=== PATIENT | male | born 1960 | race African-American/Black ===

== ENCOUNTER 2017-05-07 15:01 | Inpatient (IN) ==
[2017-05-07 16:08] LABS: CKMB % 4.9 %
[2017-05-07 16:10] LABS: Troponin I Only 0.809 NG/ML (0.00-0.045)
--- NOTE | 2017-05-07 16:12 | Emergency Department Note ---
Arrival - Arrival Chief Complaint: Chest Pain Stated Complaint: chest pain ED Nursing Triage Note: Transfer from [facility] ER for futher evaluation of elevated troponin - pt also had syncopal episodes x 2 [employer] - pt is a pt of Dr Gregory - pt states that he had some vein surgery per Dr Valente Garcia on March 26 - pt also c/o SOB Mode of Arrival: Ambulatory Limitations: No Limitations Source: Patient Time Seen by Provider: 05/07/17 16:07 - History of Present Illness HPI Narrative: This 57-year-old black male presents with a history of having a syncopal episode in the shower earlier today followed by a period of nausea, vomiting, shortness of breath, left-sided chest pain, and profound weakness. He continued to be lightheaded even after awakening from his syncopal spell. He did not reach any semblance of stability until he reached [facility] where he was given antiemetics, fluid support, Plavix, and aspirin. Notable was a CT of the head and a chest x-ray done there which were were reported as unremarkable, notable, however was a troponin of 0.292. The patient has been seen by Dr. Gregory in the past and is currently medically stable. Onset (ago): hour(s) (Patient presents about 8 hours after the incident) Allergies/Adverse Reactions: Allergies Allergy/AdvReac Type Severity Reaction Status Date / Time No Known Allergies Allergy Verified 03/13/17 17:42 Home Medications: Home Medications Medication Instructions Recorded Confirmed Type Aspirin [Lo-Dose Aspirin EC] 81 mg PO 0900 03/13/17 05/07/17 History Insulin Glargine,Hum.rec.anlog 0 - 75 units SUBCUT BID 03/13/17 05/07/17 History [Lantus SoloStar] Lisinopril/Hydrochlorothiazide 1 each PO BID 03/13/17 05/07/17 History [Lisinopril-Hctz 20-12.5 mg Tab] Metformin HCl [Metformin HCl ER] 1,000 mg PO BID 03/13/17 05/07/17 History Pravastatin [Pravachol] 40 mg PO BEDTIME 03/13/17 05/07/17 History amLODIPine [Norvasc] 5 mg PO 0900 03/13/17 05/07/17 History Ciprofloxacin Tab [Cipro Tab] 500 mg PO BID 05/07/17 05/07/17 History Clopidogrel [Plavix] 75 mg PO 0900 05/07/17 05/07/17 History Gabapentin Cap/Tab [Neurontin 300 mg PO TID 05/07/17 05/07/17 History Cap/Tab] Isosorbide Mononitrate [Isosorbide 30 mg PO QAM 05/07/17 05/07/17 History Mononitrate ER] Sulfameth/Trimeth 800-160 Tab 1 tablet PO BID 05/07/17 05/07/17 History [Bactrim DS Tab] Review of System - Review of System 12 point system: reviewed and no additional remarkable complaints except as stated - Review of System Constitutional: Present: as per HPI Respiratory: Present: as per HPI Cardiovascular: Present: as per HPI Gastrointestinal: Present: as per HPI Medical,Surgical,& Family Hx - Medical History Cardio: History of: Hypertension, PVD Endocrine: History of: Diabetes Mellitus (IDDM) - Social History Smoking Status: Never smoker Frequency of Alcohol Use: None Type of Drug Use: None Exam Physical Examination: GENERAL: Well developed, well nourished black male in no acute distress. HEENT: Normocephalic. No trauma. Moist mucous membranes. EOMI. PERRLA. ENT NML NECK: Supple. No adenopathy. CARDIAC: Regular. No murmurs. Heart rate 58 CHEST: Clear to auscultation. No respiratory distress. O2 sat 97% ABDOMEN: Soft. Nontender. Active bowel sounds. EXTREMITIES: No trauma. Normal ROM. No pedal edema. SKIN: No diaphoresis. No rash. NEURO: Alert. Neuro intact no focal deficits. Vital Signs: Vital Signs Temperature 97.2 F L 05/07/17 15:24 Pulse Rate 118 H 05/07/17 15:24 Respiratory Rate 20 05/07/17 15:24 Blood Pressure 130/79 05/07/17 15:24 O2 Sat by Pulse Oximetry 97 05/07/17 15:19 Course - Reevaluation(s) Reevaluation #1: Advised patient of need for hospitalization for serial enzymes - Consultations Consultation #1: Discussed with the hospitalist service who will admit for further evaluation treatment. Results - Labs Labs: Lab per [facility] white count 10,400, hematocrit 31.7, glucose 226, BUN 33, creatinine 2.9, troponin 0.292 I have noted the bump in troponins. - Impressions EKG: Sinus tachycardia at a rate of 120. Right ventricular conduction delay with diffuse nonspecific ST changes. Questionable inferior infarct. Disposition Clinical Impression: Abnormal cardiac enzymes, Chronic renal insufficiency, Diabetes, Peripheral vascular disease, Hypertension Case discussed with: patient Disposition: Still a Patient Condition: Guarded Time of Disposition: 16:55
--- NOTE | 2017-05-07 17:47 | Hospitalist History & Physical ---
Assessment and Plan (1) Chest pain Status: Acute Assessment and plan: Serum troponin was noted to be elevated at the time of ED presentation at 0.809 a noted increase from 0.292 which was noted at [facility]. We will obtain serial cardiac enzymes. We will consult cardiology to evaluate. In addition, we will order an echocardiogram, lipid panel, hemoglobin A1c, thyroid panel, carotid Dopplers. Current Visit: Yes (2) Syncope Status: Acute Assessment and plan: We will perform a syncope workup. We will obtain carotid Dopplers, echocardiogram, lipid panel, hemoglobin A1c. The previous medical records make no mention of CT scan of the head; we will obtain for evaluation. Current Visit: Yes (3) Hypertension Status: Acute Assessment and plan: Home medications have been reconciled; we will monitor blood pressures during the clinical encounter. Current Visit: Yes (4) Dyslipidemia Status: Acute Current Visit: Yes (5) Diabetes mellitus Status: Acute Assessment and plan: We will obtain hemoglobin A1c and start Accu-Cheks with sliding scale coverage. Current Visit: Yes (6) Renal failure, unspecified Status: Acute Assessment and plan: Gross elevations in renal function noted at the time of ED presentation. BUN is noted at 33 and creatinine 2.9. The family reports a recent onset of acute kidney injury after the patient's femoral bypass surgery. Postoperatively, the patient was given multiple antibiotic agents in which the family suggest was the causative factor for the acute kidney injury. They report that the patient was followed by nephrology during the hospitalization, however the family reports that the patient has not followed up with nephrology since discharge. Upon review of the previous medical records available on the patient, a point of care creatinine was performed on March 18, 2017 which reported the patient's creatinine at 1.09. We will monitor renal function closely. Current Visit: Yes History of Present Illness Chief complaint: Syncope/chest pain History of present illness: This is a 57-year-old male that presented to the ED from [facility] as a transfer from [facility] for further evaluation of chest pain and syncope. Patient has a very extensive medical history significant for insulin-dependent diabetes mellitus, morbid obesity, remote nicotine use, peripheral vascular disease, dyslipidemia, and diabetic neuropathy. Patient has surgical history for femoral bypass(2016). The patient reported the onset of symptoms this morning while taking shower. He reports that he became dizzy and subsequently passed out. His family heard him during this episode and assist him out of the shower. After being assisted out of the shower by his family, the patient experienced an immediate episode of nausea, vomiting, shortness of breath, left-sided chest pain, and became very weak. His family became alarmed and transported him to the ED at [facility]. The patient remained profoundly weak at the time of ED presentation at [facility]. Labs were obtained; which reported a troponin noted at 0.292. The patient was subsequently transferred to [facility] for higher level of care. The patient was immediately assessed at the time of presentation at [facility]. Cardiac enzymes were redrawn ; troponin was noted at 0.809, CK-MB 5.1, total creatinine kinase 104. The family was present at bedside. They report that the patient had recently undergone femoral bypass at [facility]. In addition, they report that the patient has experience episodes similar in nature in the past. They report that during the hospitalization at [facility], the patient had intermittent episodes of left-sided chest pain. They report that the patient had received a cardiac evaluation which included a stress test and echocardiogram and that they were told that there were no significant findings. Ironically, the family reports that they were told that the patient was experiencing "panic attacks". After brief discussion with both Dr. Gonzalez and Dr. Olson, the patient will be admitted to the hospitalist services for continuation of care. Home medications have been reviewed and reconciled. CODE STATUS discussed; patient is a FULL CODE. The family verbalized concerns regarding the patient's current renal function. They report that the patient renal function had been normal until the subsequent femoral bypass. Apparently, rounds of antibiotics which further worsend his renal function. They report that he was evaluated by nephrology however the patient has not followed up with nephrology since the subsequent discharge. Home Medications Medication Instructions Recorded Confirmed Type Aspirin [Lo-Dose Aspirin EC] 81 mg PO 0900 03/13/17 05/07/17 History Insulin Glargine,Hum.rec.anlog 0 - 75 units SUBCUT BID 03/13/17 05/07/17 History [Lantus SoloStar] Lisinopril/Hydrochlorothiazide 1 each PO BID 03/13/17 05/07/17 History [Lisinopril-Hctz 20-12.5 mg Tab] Metformin HCl [Metformin HCl ER] 1,000 mg PO BID 03/13/17 05/07/17 History Pravastatin [Pravachol] 40 mg PO BEDTIME 03/13/17 05/07/17 History amLODIPine [Norvasc] 5 mg PO 0900 03/13/17 05/07/17 History Ciprofloxacin Tab [Cipro Tab] 500 mg PO BID 05/07/17 05/07/17 History Clopidogrel [Plavix] 75 mg PO 0900 05/07/17 05/07/17 History Gabapentin Cap/Tab [Neurontin 300 mg PO TID 05/07/17 05/07/17 History Cap/Tab] Isosorbide Mononitrate [Isosorbide 30 mg PO QAM 05/07/17 05/07/17 History Mononitrate ER] Sulfameth/Trimeth 800-160 Tab 1 tablet PO BID 05/07/17 05/07/17 History [Bactrim DS Tab] Allergies Allergy/AdvReac Type Severity Reaction Status Date / Time No Known Allergies Allergy Verified 03/13/17 17:42 Medical,Surgical,& Family Hx - Medical History Cardio: History of: Hypertension, PVD Endocrine: History of: Diabetes Mellitus (IDDM) - Social History Smoking Status: Never smoker Frequency of Alcohol Use: None Type of Drug Use: None 12 point system: reviewed and no additional remarkable complaints except as stated Exam - Constitutional Vitals: Period Temp Pulse Resp BP Sys/Diaz Pulse Ox Last 24 Hr 97.2 F-97.2 F 118-118 20-20 130-130/79-79 97 General appearance: morbidly obese - Head Head exam: Present: normal inspection, normocephalic, atraumatic - Eye Eye exam: Present: EOMI, conjunctival injection Pupils: Present: SAMSON, normal accommodation - ENT ENT exam: Present: normal exam, normal external ear exam, normal oropharynx - Neck Neck exam: Present: normal inspection. Absent: lymphadenopathy, meningismus, thyromegaly - Respiratory Respiratory exam: Present: clear to auscultation bilaterally. Absent: wheezes - Cardiovascular Cardiovascular exam: Present: regular rate and rhythm. Absent: carotid bruit, diastolic murmur, gallop, JVD, rubs, systolic murmur - GI/Abdominal GI/Abdominal exam: Present: normal bowel sounds, soft - Extremities Exam Extremities exam: Present: normal inspection, normal capillary refill, full ROM. Absent: edema - Back Exam Back exam: Present: normal inspection - Neurological Exam Neurological exam: Present: alert, oriented X3, CN II-XII intact - Psychiatric Psychiatric exam: Present: normal affect, normal mood - Skin Skin exam: Present: normal color, warm, dry Results - Labs Lab Results: I have reviewed the past 24 hour labs
--- NOTE | 2017-05-07 17:57 | EKG Report ---
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
[2017-05-07] MEDS ORDERED: ONDANSETRON 4 MG/2 ML VIAL IV PRN (18:30)
[2017-05-07] MEDS ORDERED: SODIUM CHLORIDE 0.9% 1,000 ML IV SCH (18:30)
--- NOTE | 2017-05-07 20:30 | Ultrasound Report ---
Bilateral carotid Doppler. Indication: Syncope. Grayscale, color-flow, and spectral analysis performed and interpreted. The right internal carotid artery peak systolic velocity is 76 cm/s, with an IC/CC ratio 1.0. The left internal carotid artery peak systolic velocity is 82 cm/s, with an IC/CC ratio of 0.8. There is antegrade flow within each vertebral artery. Impression: Using NASCET criteria, findings consistent with less than 50% stenosis bilaterally. PROCEDURE INTERPRETED AT [facility] DEPARTMENT OF RADIOLOGY Final Report Signed by: Dr. Raven Valdes
[2017-05-07 20:33] LABS: CKMB % 4.8 %
[2017-05-07 20:49] LABS: Troponin I Only 1.28 NG/ML (0.00-0.045)
[2017-05-07] MEDS: INSULIN GLARGINE 100 UNIT/ML SUBCUT SCH (21:16)
[2017-05-07] MEDS: SULFAMETHOX/TRIMETHOPRIM 800-160 MG TABLET PO SCH (21:18)
[2017-05-07] MEDS: ENOXAPARIN 30 MG/0.3 ML SYRINGE SUBCUT SCH (21:19)
[2017-05-07] MEDS: GABAPENTIN 300 MG CAPSULE PO SCH (21:19)
[2017-05-07] MEDS: PRAVASTATIN 40 MG TABLET PO SCH (21:19)
[2017-05-07] MEDS: CIPROFLOXACIN 500 MG TABLET PO SCH ×2 (21:21→22:56)
[2017-05-07] MEDS: LISINOPRIL/HCTZ 20-12.5 MG TABLET PO SCH (21:23)
[2017-05-07 22:26] LABS: Troponin I Only 1.37 NG/ML (0.00-0.045)
[2017-05-08 01:42] LABS: Basophils # 0.1 10*3/uL (0.0-0.2); Basophils % 0.5 % (0.0-0.8); Eosinophils # 0.1 10*3/uL (0.0-0.87); Eosinophils % 0.8 % (0.00-10.9); Hematocrit 27.1 VOL% (42.0-52.0); Hemoglobin 9.3 GM/DL (14.0-18.0); Immature Granulocytes % 0.5 %; Immature Granulocytes Absolute 0.05 #; Lymphocytes # 2.7 10*3/uL (1.4-4.0); Lymphocytes % 25.9 % (21.2-54.2); Mean Corpuscular HGB Conc 34.3 GM/DL (32-36); Mean Corpuscular Hemoglobin 31 PG (27-34); Mean Corpuscular Volume 90.3 FL (87-102); Mean Platelet Volume 11.3 FL (9.6-12.0); Monocytes # 1.1 10*3/uL (0.11-0.8); Monocytes % 10.2 % (1.7-12.7); Neutrophils # 6.4 10*3/uL (1.4-7.4); Neutrophils % 62.1 % (38.7-73.9); Platelet Count 125 T/CUMM (130-400); Red Cell Distribution Width 12.5 % (9.3-17.3); White Blood Count 10.3 T/CUMM (4-12)
[2017-05-08 02:20] LABS: Calcium 9.4 MG/DL (8.5-10.1); Osmolality,Calculated 295.3 MOS/KG (273-304); Potassium 4.2 MMOL/L (3.5-5.1)
[2017-05-08 02:22] LABS: Troponin I Only 1.27 NG/ML (0.00-0.045)
[2017-05-08 02:27] LABS: Risk Ratio 5.11; Thyroid Stimulating Hormone 0.3 uIU/ml (0.358-3.74); VLDL CHOLESTEROL 27.4 MG/DL
--- NOTE | 2017-05-08 07:38 | EKG Report ---
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
[2017-05-08] MEDS ORDERED: NITROGLYCERIN SL 0.4 MG TABLET SL ONE (10:13)
--- NOTE | 2017-05-08 10:39 | EKG Report ---
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
--- NOTE | 2017-05-08 11:00 | Cardiology Consult Note ---
<Vanessa Stacy E - Last Filed: 05/08/17 10:24> Assessment and Plan - Time spent with patient Time spent with patient: Greater than 30 minutes (due to assessment, plan, and documentation) (1) Chest pain Status: Acute Assessment and plan: See plan of care listed below. Current Visit: Yes (2) Syncope Status: Acute Assessment and plan: See plan of care listed below. Current Visit: Yes (3) Hypertension Status: Chronic Assessment and plan: See plan of care listed below. Current Visit: Yes (4) Diabetes mellitus Status: Acute Assessment and plan: See plan of care listed below. Current Visit: Yes (5) Dyslipidemia Status: Chronic Assessment and plan: See plan of care listed below. Current Visit: Yes (6) Peripheral vascular disease Status: Chronic Assessment and plan: See plan of care listed below. Current Visit: Yes (7) Anemia Status: Chronic Assessment and plan: See plan of care listed below. Current Visit: Yes (8) Chronic kidney disease, stage 3 (moderate) Status: Chronic Assessment and plan: See plan of care listed below. Current Visit: Yes (9) Obesity Status: Chronic Assessment and plan: See plan of care listed below. Current Visit: Yes (10) Former tobacco use Status: Chronic Assessment and plan: See plan of care listed below. Current Visit: Yes History of Present Illness - Data of Consult Patient: known to practice within the last 3 years Consult date: 05/07/17 Requesting Physician: Mendez Olson - Consult Narrative Reason for consult: Chest pain, syncope History of present illness: BLOW MOLD OPERATOR: DR. LONDON PCP: Dr. Velázquez Mr. Willard is a 57 year old male with a history of hypertension , DVTs, dyslipidemia, peripheral vascular disease, chronic kidney disease stage III. Risk factors are significant for: Hypertension, dyslipidemia, diabetes, sedentary lifestyle, obesity, former smoker. He is status post left leg arterial bypass surgery using saphenous vein on 03/26/[address] Valente Garcia. During the hospitalization he was noted to have a normal ejection fraction of 65 % with concentric left ventricular hypertrophy with normal valves but without any real pathology. He also had a cardiac perfusion study using Lexiscan during which he was hypertensive but had no evidence for ischemia with ejection fraction 63%. He does have a significant family history of coronary artery disease. His mother from an IN at age 67 and had prior MIs with stents. His younger sister had an IN for the age of 50. His younger brother has had permanent pacemaker placement and stent placement around the age of 50. Mr. Willard was transferred to our facility from [facility] for further evaluation of chest pain and a syncopal episode. At [facility] he was noted to have an elevated troponin of 0.292. Mr. Willard tells me that he has had trouble with shortness of breath, chest tightness, and dizziness since he was discharged from the hospital in early March. He tells me he has frequently had episodes of dizziness, shortness of breath, and left chest wall numbness that wraps around to his back. He tells me he has frequent dyspnea on exertion and is unable to walk more than 50 feet without becoming winded. He tells me this is progressively worsened since he was discharged from the hospital. On Friday he reports he went to the wound clinic for treatment and has been taking Cipro and Bactrim. Friday morning he noted some shortness of breath and then afternoon he was outside and became hot and dizzy. He went inside to cool off and later that evening he had a short episode of chest tightness before he went to bed. Friday morning, he noted he still had some chest tightness when he woke up but went to take a shower and became dizzy and passed out. His found him and reports that he was unconscious for approximately 5 minutes before coming to. He did have bowel and bladder incontinence. When he woke, he was neurologically intact but was diaphoretic, weak, and vomited. His tells me it was another 5-10 minutes before he could stand. EMS was called and he was subsequently brought to [facility]. Upon arrival to our facility, his troponin was noted to be 0.809 with normal CPK and CK-MB of 5.1. It has subsequently risen to 1.28, 1.37, and now 1.27. His creatinine is 2.8. He is anemic with H&H of 9.3 and 27.1. ASSESSMENT/PLAN: 1. CHEST PAIN -symptoms suspicious for angina. He has had some positive cardiac biomarkers and nondiagnostic abnormal EKG with ST-T abnormality. After discussing with Dr. London, we will consult nephrology since patient will probably need heart catheterization. We will change his IV fluids to bicarbonate infusion in anticipation of probable catheterization. We will also hold his metformin. 2. SYNCOPE -unsure of the etiology. This certainly could have been an arrhythmic event; however, he has been in normal sinus rhythm since his arrival. Carotid Doppler revealed less than 50% stenosis bilaterally. Will get orthostatic vital signs. 3. HYPERTENSION - Currently well controlled. We will continue to monitor and adjust accordingly. 4. HYPERLIPIDEMIA - Continue lipid lowering agent. Triglycerides 137, cholesterol 138, LDL 84, HDL 27. 5. DIABETES - Suspect uncontrolled. He currently is undergoing treatment at the [facility] for removal of a gangrenous left last toe. 6. PERIPHERAL VASCULAR DISEASE - S/P left leg arterial bypass surgery on . 7. OBESITY - Chronic. 8. FORMER TOBACCO USE - Quit in 2005. 9. ANEMIA - This seems to be chronic. Records from her recent visit with Dr. Velázquez reveal an H&H of 9.6 and 30.5. He is on dual antiplatelet therapy with aspirin Plavix due to his recent vascular surgery. Platelet count is 125. Will check stool for occult blood. 10. CHRONIC KIDNEY DISEASE, STAGE 3 - Will consult nephrology for their input since he will likely need heart catheterization. We will stop his current IV fluids and place him on a bicarb drip. We will hold his metformin. CC: Mendez Olson MD - Home Medications and Allergies Home Medications: Home Medications Medication Instructions Recorded Confirmed Type Aspirin [Lo-Dose Aspirin EC] 81 mg PO 0900 03/13/17 05/07/17 History Insulin Glargine,Hum.rec.anlog 0 - 75 units SUBCUT BID 03/13/17 05/07/17 History [Lantus SoloStar] Lisinopril/Hydrochlorothiazide 1 each PO BID 03/13/17 05/07/17 History [Lisinopril-Hctz 20-12.5 mg Tab] Metformin HCl [Metformin HCl ER] 1,000 mg PO BID 03/13/17 05/07/17 History Pravastatin [Pravachol] 40 mg PO BEDTIME 03/13/17 05/07/17 History amLODIPine [Norvasc] 5 mg PO 0900 03/13/17 05/07/17 History Ciprofloxacin Tab [Cipro Tab] 500 mg PO BID 05/07/17 05/07/17 History Clopidogrel [Plavix] 75 mg PO 0900 05/07/17 05/07/17 History Gabapentin Cap/Tab [Neurontin 300 mg PO TID 05/07/17 05/07/17 History Cap/Tab] Isosorbide Mononitrate [Isosorbide 30 mg PO QAM 05/07/17 05/07/17 History Mononitrate ER] Allergies/Adverse Reactions: Allergies Allergy/AdvReac Type Severity Reaction Status Date / Time No Known Allergies Allergy Verified 03/13/17 17:42 Review of systems: - Constitutional: Present: fatigue, As per HPI. Absent: anorexia, chills, daytime sleepiness, excessive sweating, fever(s), frequent falls, headache(s), increased appetite, lethargy, malaise, night sweats, stops breathing during sleep, weakness, weight gain, weight loss. - EENT Eyes: Present: As per HPI. Absent: blurry vision, diplopia, loss of vision Ears: Present: As per HPI. Absent: decreased hearing, ear discharge, ear pain Nose, mouth and throat: Present: As per HPI. Absent: dysphagia, epistaxis, headache(s), hoarseness, lip swelling, nasal congestion, neck mass, neck pain, sinus pressure, sore throat, throat swelling, tongue swelling, vertigo - Cardiovascular: Present: chest pain at rest, chest pain with activity, dyspnea , dyspnea on exertion, lightheadedness, as per HPI. Absent: edema, claudication , diaphoresis, radiating jaw, neck or arm pain, orthopnea, palpitations, PND - Respiratory: Present: dyspnea, dyspnea on exertion, as per HPI. Absent: cough, hemoptysis, wheezing, snoring, pain on inspiration - Gastrointestinal: Present: nausea, vomiting,As per HPI. Absent: abdominal pain , bloating, change in bowel habits, constipation, diarrhea, heartburn, hematemesis, hematochezia, loose stools, melena, - Genitourinary: Present: As per HPI. Absent: difficulty urinating, dysuria, flank pain, hematuria, nocturia, urinary frequency, urinary incontinence - Musculoskeletal: Present: As per HPI. Absent: arthralgias, back pain, joint swelling, limited range of motion, muscle cramps, muscle weakness, myalgias - Neurological: Present: dizziness, syncope, As per HPI. Absent: abnormal gait, abnormal speech, behavioral changes, confusion, convulsions, disequilibrium, focal weakness, frequent falls, headache(s), memory loss, numbness, paresthesias , radicular pain, tremor(s) - Psychiatric: Present: As per HPI. Absent: anxiety, confusion, depression, panic attacks - Endocrine: Present: fatigue, As per HPI. Absent: cold intolerance, heat intolerance, polydipsia, polyphagia - Hematologic/Lymphatic: Present: As per HPI. Absent: easy bleeding, easy bruising, lymphadenopathy Medical,Surgical,& Family Hx - Medical History Cardio: History of: Hypertension, PVD Neurology: History of: Cerebrovascular Accident (2004), Peripheral Neuropathy Endocrine: History of: Diabetes Mellitus (IDDM), Dyslipidemia Respiratory: History of: Obstructive Sleep Apnea (cpap) - Surgical History Cardiac Surgeries: Patient Denies: Cardiac Catheterization - Family History Family History: Reports;: Family Cancer, Family Heart Disease, Family Hypertension - Social History Smoking Status: Former smoker (quit in 2005) Frequency of Alcohol Use: None Type of Drug Use: None Marital Status: Lives With:: Spouse Functional capacity: independent ambulation Physical Examination Vital Signs Temp Pulse Resp BP Pulse Ox 97.2 F L 118 H 20 130/79 97 05/07/17 15:19 05/07/17 15:19 05/07/17 15:19 05/07/17 15:19 05/07/17 15:19 Exam: General appearance: Pleasant and cooperative. Normal weight, no acute distress. - Head Head exam: Present: normal inspection, normocephalic, atraumatic. Absent: hematoma, laceration - Eye Eye exam: Present: EOMI. Absent: conjunctival injection, nystagmus, periorbital swelling, scleral icterus, laceration to eyelids Pupils: Present: PERRL. Absent: constricted, dilated, fixed, irregular, unequal - ENT ENT exam: Present: normal exam, normal external ear exam - Neck Neck exam: Present: normal inspection. Absent: lymphadenopathy, meningismus, tenderness, thyromegaly - Respiratory Respiratory exam: Present: clear to auscultation bilaterally. Absent: accessory muscle use, chest wall tenderness - Cardiovascular Cardiovascular exam: Present: regular rate and rhythm. Absent: carotid bruit, gallop, JVD, rubs, murmur - GI/Abdominal GI/Abdominal exam: Present: normal bowel sounds, soft. Absent: distended, firm , guarding, hernia, mass, tenderness, rebound. - Extremities Exam Extremities exam: Present: normal inspection, normal capillary refill. Upper extremity pulses 2+. Lower extremity pulses diminished. Bandage to left foot from recent left last toe removal. Absent: calf tenderness, edema -Musculoskeletal Exam Musculoskeletal: Present: No Fluid Collection, No Pain, Normal Range of Motion - Back Exam Back exam: Present: normal inspection. Absent: muscle spasm, vertebral tenderness - Neurological Exam Neurological exam: Present: alert, oriented X3, grossly intact without resting or essential tremor - Psychiatric Psychiatric exam: Present: normal affect, normal mood - Skin Skin exam: Present: normal color, warm, dry, intact. Absent: cyanosis, diaphoretic, rash, urticaria Result/EKG - Labs CBC & BMP: 05/08/17 01:23 05/08/17 01:23 Lab Results: I have reviewed the past 24 hour labs Labs: Laboratory Results - last 24 hr 05/07/17 05/07/17 05/07/17 15:19 19:09 20:50 WBC RBC Hgb Hct MCV MCH MCHC RDW Plt Count MPV Neut % (Auto) Lymph % (Auto) [place] % (Auto) Eos % (Auto) Baso % (Auto) Neut # (Auto) Lymph # (Auto) [place] # (Auto) Eos # (Auto) Baso # (Auto) Immature Gran % Nucleated RBC % Immature Gran # Nucleated RBCs # Sodium Potassium Chloride Carbon Dioxide Anion Gap BUN Creatinine GFR Calculation BUN/Creatinine Ratio Glucose POC Glucose 211 H Calculated Osmolality Calcium Magnesium Total Creatine Kinase 104 115 CK-MB (CK-2) 5.1 H 5.5 H CK and CKMB Interp 4.9 4.8 Troponin I 0.809 H 1.280 H D B-Natriuretic Peptide Triglycerides Cholesterol LDL Cholesterol VLDL Cholesterol HDL Cholesterol Heart Disease Risk Ratio TSH 3rd Generation 05/07/17 05/08/17 05/08/17 21:47 01:23 01:23 WBC 10.3 RBC 3.00 L Hgb 9.3 L Hct 27.1 L MCV 90.3 MCH 31 MCHC 34.3 RDW 12.5 Plt Count 125 L MPV 11.3 Neut % (Auto) 62.1 Lymph % (Auto) 25.9 [place] % (Auto) 10.2 Eos % (Auto) 0.8 Baso % (Auto) 0.5 Neut # (Auto) 6.4 Lymph # (Auto) 2.7 [place] # (Auto) 1.1 H Eos # (Auto) 0.1 Baso # (Auto) 0.1 Immature Gran % 0.5 Nucleated RBC % 0.0 Immature Gran # 0.05 Nucleated RBCs # 0.00 Sodium 141 Potassium 4.2 Chloride 108 H Carbon Dioxide 25 Anion Gap 12.2 BUN 38 H Creatinine 2.80 H GFR Calculation 38 BUN/Creatinine Ratio 13.00 Glucose 200 H POC Glucose Calculated Osmolality 295.3 Calcium 9.4 Magnesium 2.0 Total Creatine Kinase 106 104 CK-MB (CK-2) 5.3 H CK and CKMB Interp 5.0 Troponin I 1.370 H 1.270 H B-Natriuretic Peptide Triglycerides Cholesterol LDL Cholesterol VLDL Cholesterol HDL Cholesterol Heart Disease Risk Ratio TSH 3rd Generation 05/08/17 05/08/17 05/08/17 01:23 01:23 01:23 WBC RBC Hgb Hct MCV MCH MCHC RDW Plt Count MPV Neut % (Auto) Lymph % (Auto) [place] % (Auto) Eos % (Auto) Baso % (Auto) Neut # (Auto) Lymph # (Auto) [place] # (Auto) Eos # (Auto) Baso # (Auto) Immature Gran % Nucleated RBC % Immature Gran # Nucleated RBCs # Sodium Potassium Chloride Carbon Dioxide Anion Gap BUN Creatinine GFR Calculation BUN/Creatinine Ratio Glucose POC Glucose Calculated Osmolality Calcium Magnesium Total Creatine Kinase 107 CK-MB (CK-2) 4.1 H CK and CKMB Interp Troponin I 1.270 H B-Natriuretic Peptide 498 H Triglycerides 137 Cholesterol 138 LDL Cholesterol 84.0 VLDL Cholesterol 27.4 HDL Cholesterol 27 L Heart Disease Risk Ratio 5.11 TSH 3rd Generation 0.300 L - EKG EKG results: interpreted by me, sinus rhythm <Michael London - Last Filed: 05/08/17 12:20> History of Present Illness - Consult Narrative History of present illness: Mr. Willard is a 57 year old male who has seen previously. I have personally interviewed and examined the patient and chart reviewed. I discussed this case with Vanessa Stacy NP. He had a negative cardiac workup in February 2017 [facility] including echo and cardiac perfusion study. The patient had recurrent chest pain episodes and we placed him Imdur as an outpatient. The patient had a syncopal episode while in the shower and apparently had bladder and bowel incontinence according the notes. Anyway the patient though because of his recurrent chest pains and his troponin being elevated should have cardiac catheterization. Certainly his elevated creatinine and BUN and decreased GFR increases risk for contrast. Because of his recurrent symptomatology though and troponins he needs clarification of his coronary artery anatomy. He has had peripheral vascular for which she has had surgery and increases risk. Have discussed his status with the patient and his family which includes his . I have reviewed our findings and our recommendations of right and left cardiac catheterization with the possibility of PCI. I discussed with him the indications as well as the risk and how the procedure be carried out. I discussed cardiac catheterization and percutaneous coronary intervention with the patient and available family. I reviewed with them the indications for the procedure and the basis of how the procedure would be carried out. I also reviewed with them the risk of the procedure which include but not necessarily limited to access site bleeding, bruising, pain, swelling or vascular injury that may require emergency vascular surgery, blood transfusion, or thrombin injection. Also discussed the possibility of stroke, myocardial infarction, arrhythmia which may require electrocardioversion, and the possibility of dye reaction that would require medical therapy. Also discussed the possibility of coronary artery injury, ruptured, closure or perforation that may require emergency bypass surgery. We also discussed the possibility of from a major complication. In his situation also discussed these at significant risk for acute renal failure or dysfunction that may even lead that he has to have dialysis either temporarily or long-term. The questions were answered they voice understanding and agree to proceed. We will go ahead and start him on a bicarbonate infusion. CC: Mendez Olson MD Physical Examination Vital Signs Temp Pulse Resp BP Pulse Ox 97.2 F L 118 H 20 130/79 97 05/07/17 15:19 05/07/17 15:19 05/07/17 15:19 05/07/17 15:19 05/07/17 15:19 Result/EKG - Labs CBC & BMP: 05/08/17 01:23 05/08/17 01:23 Labs: Laboratory Results - last 24 hr 05/07/17 05/07/17 05/07/17 15:19 19:09 20:50 WBC RBC Hgb Hct MCV MCH MCHC RDW Plt Count MPV Neut % (Auto) Lymph % (Auto) [place] % (Auto) Eos % (Auto) Baso % (Auto) Neut # (Auto) Lymph # (Auto) [place] # (Auto) Eos # (Auto) Baso # (Auto) Immature Gran % Nucleated RBC % Immature Gran # Nucleated RBCs # Sodium Potassium Chloride Carbon Dioxide Anion Gap BUN Creatinine GFR Calculation BUN/Creatinine Ratio Glucose POC Glucose 211 H Calculated Osmolality Calcium Magnesium Total Creatine Kinase 104 115 CK-MB (CK-2) 5.1 H 5.5 H CK and CKMB Interp 4.9 4.8 Troponin I 0.809 H 1.280 H D B-Natriuretic Peptide Triglycerides Cholesterol LDL Cholesterol VLDL Cholesterol HDL Cholesterol Heart Disease Risk Ratio TSH 3rd Generation 05/07/17 05/08/17 05/08/17 21:47 01:23 01:23 WBC 10.3 RBC 3.00 L Hgb 9.3 L Hct 27.1 L MCV 90.3 MCH 31 MCHC 34.3 RDW 12.5 Plt Count 125 L MPV 11.3 Neut % (Auto) 62.1 Lymph % (Auto) 25.9 [place] % (Auto) 10.2 Eos % (Auto) 0.8 Baso % (Auto) 0.5 Neut # (Auto) 6.4 Lymph # (Auto) 2.7 [place] # (Auto) 1.1 H Eos # (Auto) 0.1 Baso # (Auto) 0.1 Immature Gran % 0.5 Nucleated RBC % 0.0 Immature Gran # 0.05 Nucleated RBCs # 0.00 Sodium 141 Potassium 4.2 Chloride 108 H Carbon Dioxide 25 Anion Gap 12.2 BUN 38 H Creatinine 2.80 H GFR Calculation 38 BUN/Creatinine Ratio 13.00 Glucose 200 H POC Glucose Calculated Osmolality 295.3 Calcium 9.4 Magnesium 2.0 Total Creatine Kinase 106 104 CK-MB (CK-2) 5.3 H CK and CKMB Interp 5.0 Troponin I 1.370 H 1.270 H B-Natriuretic Peptide Triglycerides Cholesterol LDL Cholesterol VLDL Cholesterol HDL Cholesterol Heart Disease Risk Ratio TSH 3rd Generation 05/08/17 05/08/17 05/08/17 01:23 01:23 01:23 WBC RBC Hgb Hct MCV MCH MCHC RDW Plt Count MPV Neut % (Auto) Lymph % (Auto) [place] % (Auto) Eos % (Auto) Baso % (Auto) Neut # (Auto) Lymph # (Auto) [place] # (Auto) Eos # (Auto) Baso # (Auto) Immature Gran % Nucleated RBC % Immature Gran # Nucleated RBCs # Sodium Potassium Chloride Carbon Dioxide Anion Gap BUN Creatinine GFR Calculation BUN/Creatinine Ratio Glucose POC Glucose Calculated Osmolality Calcium Magnesium Total Creatine Kinase 107 CK-MB (CK-2) 4.1 H CK and CKMB Interp Troponin I 1.270 H B-Natriuretic Peptide 498 H Triglycerides 137 Cholesterol 138 LDL Cholesterol 84.0 VLDL Cholesterol 27.4 HDL Cholesterol 27 L Heart Disease Risk Ratio 5.11 TSH 3rd Generation 0.300 L 05/08/17 05/08/17 10:33 10:34 WBC RBC Hgb Hct MCV MCH MCHC RDW Plt Count MPV Neut % (Auto) Lymph % (Auto) [place] % (Auto) Eos % (Auto) Baso % (Auto) Neut # (Auto) Lymph # (Auto) [place] # (Auto) Eos # (Auto) Baso # (Auto) Immature Gran % Nucleated RBC % Immature Gran # Nucleated RBCs # Sodium Potassium Chloride Carbon Dioxide Anion Gap BUN Creatinine GFR Calculation BUN/Creatinine Ratio Glucose POC Glucose 149 H Calculated Osmolality Calcium Magnesium Total Creatine Kinase 97 CK-MB (CK-2) 2.6 CK and CKMB Interp Troponin I 0.690 H D B-Natriuretic Peptide Triglycerides Cholesterol LDL Cholesterol VLDL Cholesterol HDL Cholesterol Heart Disease Risk Ratio TSH 3rd Generation
[2017-05-08] MEDS: INSULIN GLARGINE 100 UNIT/ML SUBCUT SCH ×2 (11:44→20:58)
[2017-05-08] MEDS: CIPROFLOXACIN 500 MG TABLET PO SCH ×2 (11:45→20:55)
[2017-05-08] MEDS: SULFAMETHOX/TRIMETHOPRIM 800-160 MG TABLET PO SCH ×2 (11:45→20:55)
[2017-05-08] MEDS ORDERED: diphenhydrAMINE CAP 25 MG CAPSULE PO ONE (12:07)
[2017-05-08] MEDS ORDERED: DIAZEPAM 5 MG TABLET PO ONE (12:07)
[2017-05-08] MEDS ORDERED: POTASSIUM CHLORIDE RIDER 10 MEQ in PREMIX 1 EACH IV PRN (12:07)
[2017-05-08] MEDS ORDERED: ASPIRIN 325 MG TABLET PO ONE (12:07)
[2017-05-08] MEDS ORDERED: MAGNESIUM SULF RIDER 2 GM in PREMIX 1 EACH IV PRN (12:07)
[2017-05-08] MEDS: ASPIRIN EC 81 MG TABLET PO SCH (12:21)
[2017-05-08] MEDS: ISOSORBIDE MONONITRATE 30 MG TABLET PO SCH (12:21)
[2017-05-08] MEDS: GABAPENTIN 300 MG CAPSULE PO SCH ×3 (12:21→20:53)
[2017-05-08] MEDS: amLODIPine 5 MG TABLET PO SCH (12:21)
[2017-05-08] MEDS: LISINOPRIL/HCTZ 20-12.5 MG TABLET PO SCH (12:22)
[2017-05-08] MEDS: CLOPIDOGREL 75 MG TABLET PO SCH (12:22)
[2017-05-08] MEDS: PANTOPRAZOLE 40 MG TABLET PO SCH (12:22)
[2017-05-08] MEDS ORDERED: HEPARIN/NACL 0.9% 2 UNITS/ML 0 ML IV ONE (12:26)
[2017-05-08] MEDS ORDERED: LIDOCAINE 1% 20 ML VIAL ONE ×2 (12:26→13:39)
[2017-05-08] MEDS ORDERED: MIDAZOLAM 2 MG/2 ML VIAL ONE (12:27)
[2017-05-08] MEDS ORDERED: fentaNYL 100 MCG/2 ML VIAL ONE (12:27)
[2017-05-08] MEDS: SODIUM BICARB INJ 50 MEQ in SODIUM CHLORIDE 0.45% 1,000 ML IV SCH ×2 (12:40→23:11)
--- NOTE | 2017-05-08 12:51 | History and Physical Update ---
Sedation H&P Update - History and Physical H&P was reviewed, the patient examined and there: are no changes in the patients condition since last H&P was completed. - Dictation Physical: refer to H&P completed by admitting physician - Physical Exam Mental Status: alert and oriented Heart: regular rate and rhythm Lung: clear to auscultation Abdomen: within normal limits Vitals: within normal limits History and Physical Changes: none - Sedation Plan for Sedation: moderate Patient Consent: Procedure disscussed with patient and patinet has consented., Risks and benefits were discussed with patient,including infection,, bleeding, injury to surrounding structures, seizure, temporary nerve, Patient understands and accepts potential risks/benefits and agrees to, proceed. ASA Class: III Airway Assessment: Class IV: Only hard palate visible
[2017-05-08] MEDS ORDERED: VERAPAMIL 5 MG/2 ML VIAL ONE (13:39)
[2017-05-08] MEDS ORDERED: NITROGLYCERIN DRIP 50 MG/250 ML BOTTLE IV ONE (13:39)
[2017-05-08] MEDS ORDERED: ENOXAPARIN 30 MG/0.3 ML SYRINGE ONE (14:04)
[2017-05-08] MEDS ORDERED: CLOPIDOGREL 300 MG TABLET ONE (14:29)
--- NOTE | 2017-05-08 14:36 | Operative Note ---
Date of procedure: 05/08/17 Procedure Preformed: Left heart catheterization with intervention/PCI of LAD. Surgeon / Physician: Michael Gregory Automatic Lathe Operator: Blanche Burleson Post-op diagnosis: same Findings: High-grade proximal LAD stenosis with PCI with stenting of the proximal LAD. Specimens: none sent Estimated blood loss: minimal Anesthesia: local, conscious sedation Disposition: floor
[2017-05-08] MEDS ORDERED: DEXTROSE 50% 25 GM/50 ML VIAL IV PRN (14:37)
[2017-05-08] MEDS ORDERED: GLUCAGON 1 MG VIAL IM PRN (14:37)
--- NOTE | 2017-05-08 15:02 | Cardiac Catheterization ---
Date of Procedure:: 05/08/17 Pre-op Diagnosis: Unstable angina, coronary disease. Post-op diagnosis: same Procedure: LEFT HEART CATHETERIZATION History: Patient with peripheral vascular disease now with recurrent chest pain anginal quality. Pre-Op diagnosis: Unstable angina and coronary disease. Coronary disease with high-grade stenosis in the LAD. Postoperative diagnosis: Procedures: 1. Right and left heart catheterization. 2. Left ventricular angiogram. 3. Selective left and right coronary angiograms. 4. PCI/stenting of proximal LAD.. Equipment: Right heart catheterization a 7 Malagasy venous sheath and Hillside-Paulo catheter was used to the femoral vein. 4 left heart catheterization Terumo 6 Malagasy radial glide arterial sheath, pigtail catheter, Terumo 6 Malagasy radial TIG 4.0 diagnostic. Medium TR band. For intervention: EBU 4.0 guide catheter, pro-water flex PTCI and guidewire, 3.0 x 15 mm Rx apex balloon, 3.5 x 24 mm Synergy WILMER, NC trek 3.75 mm balloon. Medications: Preoperative Benadryl and Valium given by mouth. Lidocaine 1% local anesthesia mls administered by myself. Intraprocedure patient received Versed mgs IVP, fentanyl mcgs IVP, Verapamil 5 mg/NTG 200 mcg in 5 ml NS; Dilaudid mgs IVP. Complications: None immediate. Contrast: Omnipaque 196 milliliters. Description of procedure: After informed consent the patient was given preoperative medications and brought to the catheterization laboratory where their right groin and right anterior wrist and forearm was prepped and draped in usual fashion. IV sedation was then obtained after which local anesthesia with lidocaine was administered over the right groin over the femoral artery and vein. The right common femoral vein was cannulated and a 7 Malagasy sheath placed. Hillside-Paulo catheter was used to obtain right heart catheterization obtaining blood samples for O2 sats in the right atrium and pulmonary artery. FA sample was not obtained since we could not access femoral artery adequately. Cardiac outputs were then measured with thermal dilution cardiac output. Pressures were then obtained which position, pulmonary artery, right ventricle, and right atrium. Hillside-Paulo catheter was then discarded. We have attempted to cannulate the right common femoral artery which we did adequately was unable to advance the J- wire. Right common femoral artery angiogram was obtained through the needle in fact had total occlusion of the external iliac. At this time needle was removed and pressure was administered to obtain hemostasis. At this time we abandoned the right groin and prepped the right wrist for radial artery approach. After the right distal wrist area over the radial artery had been prepped and draped local anesthesia over the radial artery was obtained. Using the double wall needle the radial artery was cannulated. Microguidewire was advanced through the cannula into the radial artery. We exchanged for the radial artery sheath that was advanced over the microguidewire. Guidewire was removed. The pigtail catheter was then advanced over guidewire and then used to across the aortic valve or pressures were measured. Pullback pressures were then measured with the pigtail catheter back in the aortic root. The aortic valve was then recross and left ventricular angiogram was obtained the right oblique view. The pigtail catheter was exchanged for the TIG 4.0 diagnostic catheter. This catheter was then used to cannulate the left and then right coronary arteries of which angiograms were obtained of each of these vessels in multiple projections. The angiograms were then reviewed. The diagnostic catheter was then removed over the guidewire. At this point we proceeded with PCI of the LAD. We advanced the EBU 4.0 guide catheter through which a pro-water flex PCI guide wire was advanced through the lesion into the distal LAD. Over this a 3.0 x 15 mm Rx apex balloon was advanced. We carry out several inflations across the proximal LAD is stenosis some of which was secondary to the balloon shifting as pressures were were increased. But inflations ranged from 5-14 madi from 11-24 seconds. After successful PCI but still significant residual stenosis of 50% we proceeded with placement of a synergy 3.5 x 24 WILMER. This deployed in the proximal LAD across the stenotic area. We did not feel he had adequate apposition especially in the proximal midportion of the stent. We thus exchanged the stent balloon for a 3.75 x 8 mm NC trek balloon that was used to carry out for inflations. We carried a low pressure inflation across the distal portion of the stent at its distal edge at 4 madi for 13 seconds. A second inflation at the same location at 6 mdai for 22 seconds was then carried out. The stent was pulled into the very proximal portion stent at the level of the proximal edge and a 14 madi inflation was carried out for 23 seconds. The balloon was pushed back more distally and another inflation was carried out at 12 madi for 21 seconds. Balloon was then removed. Final angiograms revealed 0% residual stenosis and LORENZO-3 flow. At this point the PCI balloon and guidewire were removed. The EBU guide catheter was removed over the J guide wire. The TR band was then placed in the usual fashion and hemostasis obtained. Hemodynamic data: PCW: 24/27, mean 23; PA: 47/30, mean 37; RV: 45/23, EDP 23; RA : Mean 16; LV: 134/21, EDP 24; AO root 142/82, mean 105. Oxygen saturation: RA 67%, PA 65%. FA not available Left ventricular angiogram: Left ventricle appears to be normal size and systolic function ejection fraction of 55-60%. There was a low contrast study but no gross mitral regurgitation noted. There are valve appeared to be probably a tricuspid structure. Thoracic aorta some calcification otherwise unremarkable. Left main coronary artery angiogram: Left main coronary artery is large bifurcating LAD and circumflex arteries. It is very proximal and ostial portion it may have some narrowing that would be eccentric and 30% or less. Left anterior descending artery angiogram: The LAD is a medium caliber vessel proximally smaller than that of the circumflex artery. It does extend around to the distal apical area. The first diagonal is hard to distinguish its exact takeoff but appears to be very proximal. It is tortuous proximally and coiled. In this proximal LAD is a stenosis of at least 80-90%. LORENZO II flow is present. Diagonal branch appears to have is takeoff somewhere in this area. Beyond this it worse or may some luminal irregularities of the LAD. Circumflex artery angiogram: Circumflex arteries a medium caliber vessel giving rise to a very small first obtuse marginal branch. Second obtuse marginal branch is medium caliber multi-branching vessel, significant and larger myocardium. Beyond this the service artery is somewhat of a small vessel distally giving rise to a couple small posterior ventricular branches. There are luminal irregularities in the circumflex artery and obtuse marginal branch specifically second obtuse marginal branch but no occlusive disease present.. Right coronary artery angiogram: The RCA is a large caliber vessel giving rise to a medium caliber long PDA. Beyond this are small posterior branches but the RCA terminates in a long medium caliber posterior lateral branch. The AV node artery has is takeoff the distal RCA. There is some calcification mid vessel. In this same area the mid RCA is some 30-40 % stenosis. There is luminal irregularities beyond this. PCI of LAD: The 89% proximal LAD stenosis with LORENZO II flow was dilated to 0% residual stenosis with LORENZO-3 flow as described above. Right common femoral artery angiogram: We see the right comfort is widely patent as is the superficial femoral artery and profundus branch. We do note what may be some calcification but there is total occlusion and no flow seen past the very proximal portion of the common femoral artery. Flow though does appear to be adequate so there is significant collaterals present. Impression: 1. Left ventricle is normal size with ejection fraction 55 60%. 2. The LVEDP is at least mild elevated at 24 mmHg. 3. Right-sided pressures overall are fairly unremarkable with only mildly increased systolic pressures in the RV and PA with a mildly increased RV EDP. 4. The wedge pressure is mildly increased with a mean of 23. 5. There is no significant mitral valve regurgitation noted. 6. The aortic valve appeared to be a tricuspid structure without any significant gradient noted. 7. RCA is large and dominant. It has worsened mid stenosis of 30-40% with luminal irregularities distally. 8. Left main coronary artery may have some stenosis up to 30% to be eccentric. Some of this that we see may be spasm in catheter induced. He is not hemodynamically significant. 9. Circumflex artery is nondominant widely patent with it worse and minimal luminal irregularities. 10. LAD with high-grade proximal stenosis ranging from 80-90% stenosis and LORENZO II flow. 11. Successful stent placement of the proximal LAD as described above with the 89% stenosis and LORENZO II flow dilated 0% residual stenosis with LORENZO-3 flow. 12. Successful hemostasis of the right radial artery at the wrist. Discussion: We will marked the patient post catheterization and intervention. Risk factor modification be aggressively carried out and the patient educated to such. We will discuss smoking cessation. Cardiac rehab has been consulted. Implants: See above Anesthesia: local, moderate conscious sedation Surgeon / Physician: Michael Gregory Loss Prevention Operations Manager: other (Blanche MILLER) Estimated blood loss: minimal Specimens: none sent Condition: stable Disposition: floor - Medications / Follow-up
[2017-05-08] MEDS ORDERED: HYDROmorphone 2 MG/1 ML VIAL IM ONE (15:23)
--- NOTE | 2017-05-08 15:39 | Event Note ---
Patient after returning to the room catheterization at 20 which was LAD again complaining of chest pain. The patient stated it was a 7 out of 10. ECG did not reveal any real changes prior to his preprocedure ECG. He may have a slight increase in ST elevation in V2 but this was minimal and is significant. Would expect much more EKG changes if he closes LAD stent. Also my arrival the patient was really in no distress he was not dyspneic as well ahead to rouse him a little bit from his sedation. I do not think his pain is specifically from occlusion of his LAD. He may have had a small side branch that was occluded or this may just be from pericardial irritation from expansion of the stent.
--- NOTE | 2017-05-08 15:53 | Nephrology Consult Note ---
History of Present Illness Chief complaint: Increased BUN and creatinine increased BUN and creatinine History of present illness: Mr. Willard is a 57 year old male who was admitted on 05/07/2017 after passing out. The patient was being held by his to the bathroom yesterday morning when he passed out and became unresponsive patient's subsequently went to get some help across the road and when she came back the patient had propped himself up against the wall and was sluggishly interacting. The patient then proceeded to vomit profusely. Patient was subsequently brought to the emergency room and transported here for further evaluation and treatment. The patient had some associated chest pain as well as some diaphoresis. The patient since admission had a heart catheterization done today and a subsequent stent replacement in his coronary artery. We are asked see the patient for increased creatinine of 2.8 mg/dL yesterday. The patient about a month or so ago was admitted [facility] gangrenous toe he subsequently underwent a arterial bypass procedure in this left leg. During that admission the patient received what sounds like vancomycin antibiotic therapy and subsequently developed acute renal failure with his creatinine increasing to around 3.6 mg/ dL. At the time of discharge the family relates that his creatinine did come back down to around 3.2 mg/dL. Prior to that the patient was told that his kidney function was normal. The patient does have a history of diabetes and hypertension and had a sister that was on dialysis. The patient about 4-5 days ago was seen by his local doctor who did some debridement on his left fifth toe and started him on antibiotics with Cipro and Bactrim. ROS: Head -positive headaches ENT - denies sore throat Lymphatics - denies lymphadenopathy Hematology - denies bleeding problems Heart -positive chest pain Lungs - denies shortness of breath Abdomen - denies abdominal pain Musculoskeletal -positive arthritis Skin - denies rash Neurology -positive stroke General - denies fever PE: General: in no acute distress Eyes: Pupils are round and reactive, conjunctivae are clear ENT: Nose is clear, O/P is benign Neck: Supple, no thyromegaly Lymphatics: No cervical, supraclavicular or axillary adenopathy Heart: Regular rate and rhythm, no edema Lungs: Clear to auscultation anteriorly, chest expansion symmetric Abdomen: Soft, normoactive bowel sounds, no hepatomegaly Musculoskeletal: No joint erythema or effusions or joint asymmetry, the patient has some denuded areas over his left fifth toe but there is no swelling or inflammation or increased warmth here. Skin: Normal turgor, normal hydration, no rash Neuro/Psych: Alert and cooperative with fair insight Home Medications Medication Instructions Recorded Confirmed Type Aspirin [Lo-Dose Aspirin EC] 81 mg PO 0900 03/13/17 05/07/17 History Insulin Glargine,Hum.rec.anlog 0 - 75 units SUBCUT BID 03/13/17 05/07/17 History [Lantus SoloStar] Lisinopril/Hydrochlorothiazide 1 each PO BID 03/13/17 05/07/17 History [Lisinopril-Hctz 20-12.5 mg Tab] Metformin HCl [Metformin HCl ER] 1,000 mg PO BID 03/13/17 05/07/17 History Pravastatin [Pravachol] 40 mg PO BEDTIME 03/13/17 05/07/17 History amLODIPine [Norvasc] 5 mg PO 0900 03/13/17 05/07/17 History Ciprofloxacin Tab [Cipro Tab] 500 mg PO BID 05/07/17 05/07/17 History Clopidogrel [Plavix] 75 mg PO 0900 05/07/17 05/07/17 History Gabapentin Cap/Tab [Neurontin 300 mg PO TID 05/07/17 05/07/17 History Cap/Tab] Isosorbide Mononitrate [Isosorbide 30 mg PO QAM 05/07/17 05/07/17 History Mononitrate ER] Allergies Allergy/AdvReac Type Severity Reaction Status Date / Time No Known Allergies Allergy Verified 03/13/17 17:42 Medical,Surgical,& Family Hx - Medical History Cardio: History of: Hypertension, PVD Neurology: History of: Cerebrovascular Accident (2004), Peripheral Neuropathy No history of: Seizures Endocrine: History of: Diabetes Mellitus (IDDM), Dyslipidemia Respiratory: History of: Obstructive Sleep Apnea (cpap) - Surgical History Cardiac Surgeries: Patient Denies: Cardiac Catheterization Additional Surgical History: Left leg arterial bypass using a left leg vein - Family History Family History: Reports;: Family Cancer, Family Heart Disease, Family Hypertension - Social History Smoking Status: Former smoker (quit in 2005) Frequency of Alcohol Use: None Type of Drug Use: None Exam - Vital Signs Vital signs: Period Temp Pulse Resp BP Sys/Diaz Pulse Ox Last 24 Hr 97.2 F-98.6 F 87-118 16-20 103-137/60-78 93-100 Results - Labs CBC & BMP: 05/08/17 01:23 05/08/17 01:23 Assessment and Plan (1) Renal failure, unspecified Status: Acute Assessment and plan: It sounds like this patient had normal renal function about 2 months ago but then was admitted to the hospital with a gangrenous toe and received some antibiotics that resulted in some acute renal injury his creatinine increasing to around 3 mg/dL. It sounds as if his kidney function did not fully recover and returns today with a creatinine of 2.8 mg/dL. I agree with giving him IV fluids for renal protection from contrast am also going to add Mucomyst and will hold his diuretic and GARRICK inhibitor for the next 2 days. Current Visit: Yes (2) Coronary artery disease Status: Acute Assessment and plan: Patient status post stent placement today Current Visit: Yes (3) Chest pain Status: Acute Current Visit: Yes (4) Diabetes mellitus Status: Acute Current Visit: Yes (5) Syncope Status: Acute Current Visit: Yes (6) Anemia Status: Chronic Assessment and plan: Patient's hematocrit is 28% Current Visit: Yes (7) Former tobacco use Status: Chronic Current Visit: Yes (8) Hypertension Status: Chronic Current Visit: Yes (9) Obesity Status: Chronic Current Visit: Yes (10) Peripheral vascular disease Status: Chronic Assessment and plan: Patient has a left toe wound he has been getting antibiotics for this, I am going to ask the wound care team to see him. Current Visit: Yes
--- NOTE | 2017-05-08 16:55 | Hospitalist Progress Note ---
Assessment and Plan (1) Coronary artery disease Status: Acute Assessment and plan: The patient will continue recovery of the PTCA. Hemodynamics are stable. The patient is not having any angina. I reviewed the evaluation of the nurses and evaluated the patient myself. Should the patient develop worsening mental status or respiratory failure will move him to critical care area. Will recheck electrolytes tomorrow. Current Visit: Yes (2) Diabetes mellitus Status: Acute Current Visit: Yes (3) Chronic kidney disease, stage 3 (moderate) Status: Chronic Current Visit: Yes Hospitalist: Subjective Interval history: The patient had coronary arteriogram this morning. The patient had PTCA with stent placement in the left anterior descending artery. The patient is now recovering back in his room. Oxygen saturations have been less than 90. The patient was given oxygen by nasal cannula and CPAP mask as he uses at home was started. The patient's oxygen saturation is doing better now the patient is awake and mildly lethargic. The patient's is at the bedside as well as his nurse. We continue to monitor and can move him to critical care area should mental status decline or he develop other evidence of respiratory failure. Exam - Constitutional Vitals: Period Temp Pulse Resp BP Sys/Diaz Pulse Ox Last 24 Hr 97.2 F-98.6 F 68-118 16-20 103-198/60-92 79-100 Exam: Constitutional System: Minimal distress. No tremulousness. The patient is mildly lethargic but arousable Head: Normocephalic, atraumatic. Ears, Nose and Throat System: No evidence of Otitis or Mastoiditis. No epistaxis or discharge Eyes System: Pupils equal, round, and reactive. Extraocular muscles intact. Neck: Supple, without adenopathy, No jugular venous distention. No thyromegaly , neck mass, or prior surgery apparent. Respiratory System: Chest clear to auscultation. Lung volumes are smaller than optimal Cardiovascular System: Heart with regular rate and rhythm. No murmur. GI System: Abdomen soft, nontender. Normo active bowel sounds present. Musculoskeletal System: limbs with no pedal edema. Full distal pulses. Neurological System: No discernable sensory deficit. No aphasia Psychiatric System: Conversation is rational Results - Labs CBC & BMP: 05/08/17 01:23 05/08/17 01:23 Lab Results: I have reviewed the past 24 hour labs Quality Measures - VTE Contraindication to Pharmacological VTE Prophylaxis: High Risk of Bleeding
[2017-05-08] MEDS: NIFEdipine 10 MG CAPSULE PO PRN (17:31)
--- NOTE | 2017-05-08 17:49 | Event Note ---
Patient is doing well post catheterization. Still sedate. He is on CPAP this time. His blood pressure elevated. Dr. Olson has adjusted his medications. I reviewed with he and his he has angiogram pictures and results. This time is stable. Blood pressures coming down.
[2017-05-08] MEDS: ENOXAPARIN 30 MG/0.3 ML SYRINGE SUBCUT SCH (17:58)
--- NOTE | 2017-05-08 18:07 | ECHO Report ---
Vanessa Willard Exam Date: 05/08/2017 08:04 Referring Physician: Technologist: manny Reyna ARDMS, RVT Age: 57 Ht (in): 72 Wt (lb): 265 Gender: M Exam Location: [facility] Indications: Syncope and collapse, Essential (primary) hypertension, Chest pain, unspecified, Renal failure, Dyslipidemia, Diabetes BP: 129 / 73 HR: 91 Rhythm: Sinus Technical Quality: Fair IMPRESSIONS 1. Left ventricle is normal size and systolic function with ejection fraction 55+%. There is mild concentric left ventricular hypertrophy. 2. There appears to be some intraventricular septal wall flattening. 3. Moderately dilated right ventricle and right atrium. 4. Mildly dilated left atrium. 5. Mildly thickened mitral valve but function normal. 6. Mild tricuspid valve regurgitation. 7. Aortic valve is normal. MEASUREMENTS (Male / Female) Normal Values 2D ECHO LV Diastolic Diameter PLAX 4.4 cm 4.2 - 5.9 / 3.9 - 5.3 cm LV Systolic Diameter PLAX 3.3 cm LV Fractional Shortening PLAX 26.4 % IVS Diastolic Thickness 1.5 cm 0.6 - 1.0 / 0.6 - 0.9 cm LVPW Diastolic Thickness 1.4 cm 0.6 - 1.0 / 0.6 - 0.9 cm RV Internal Dim ED PLAX 4.4 cm Aortic Root Diameter 3.3 cm LA Systolic Diameter LX 4.0 cm 3.0 - 4.0 / 2.7 - 3.8 cm DOPPLER TR Peak Velocity 314.0 cm/s TR Peak Gradient 39.4 mmHg FINDINGS Left Ventricle Normal left ventricular cavity size. Mild left ventricular hypertrophy. Left ventricular ejection fraction is estimated at 55 %. There is some interventricular septal wall flattening. There are no segmental wall motion abnormalities. Right Ventricle Moderately increased right ventricular size. Right Atrium Moderately increased right atrial size. Left Atrium The left atrium is mildly enlarged. Mitral Valve Mildly thickened mitral valve. Trace mitral valve regurgitation. Aortic Valve Morphologically normal and tricuspid aortic valve without sclerosis or stenosis. There is no aortic regurgitation. Tricuspid Valve Morphologically normal tricuspid valve. Mild tricuspid valve regurgitation. Tricuspid regurgitation velocities suggest a PAP of 49 mmHg. Pulmonic Valve Morphologically normal pulmonic valve without significant stenosis. There is no pulmonic regurgitation. Pericardium Normal pericardium without effusion. Aorta Normal ascending aorta dimension. Michael Gregory MD (Electronically Signed) Final Date: 08 May 2017 18:05
[2017-05-08] MEDS: ACETYLCYSTEINE 600 MG CAPSULE PO SCH (20:53)
[2017-05-08] MEDS: PRAVASTATIN 40 MG TABLET PO SCH (20:53)
[2017-05-08] MEDS: METOPROLOL TARTRATE 25 MG TABLET PO SCH (20:53)
[2017-05-09 05:40] LABS: Basophils % 0.5 % (0.0-0.8); Eosinophils # 0.2 10*3/uL (0.0-0.87); Eosinophils % 1.9 % (0.00-10.9); Hematocrit 25.9 VOL% (42.0-52.0); Hemoglobin 8.6 GM/DL (14.0-18.0); Immature Granulocytes % 0.4 %; Immature Granulocytes Absolute 0.03 #; Lymphocytes # 1.4 10*3/uL (1.4-4.0); Lymphocytes % 18.5 % (21.2-54.2); Mean Corpuscular HGB Conc 33.2 GM/DL (32-36); Mean Corpuscular Hemoglobin 30 PG (27-34); Mean Corpuscular Volume 91.5 FL (87-102); Mean Platelet Volume 11.1 FL (9.6-12.0); Monocytes % 12.9 % (1.7-12.7); Neutrophils # 5.1 10*3/uL (1.4-7.4); Neutrophils % 65.8 % (38.7-73.9); Platelet Count 114 T/CUMM (130-400); Red Blood Count 2.83 MC/CUMM (3.8-5.5); Red Cell Distribution Width 12.2 % (9.3-17.3); White Blood Count 7.7 T/CUMM (4-12)
[2017-05-09 06:15] LABS: CKMB % 14.9 %; Calcium 9.2 MG/DL (8.5-10.1); Osmolality,Calculated 289.3 MOS/KG (273-304); Potassium 3.9 MMOL/L (3.5-5.1); Risk Ratio 4.88
[2017-05-09 06:38] LABS: Troponin I Only 7.2 NG/ML (0.00-0.045)
--- NOTE | 2017-05-09 07:35 | EKG Report ---
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
--- NOTE | 2017-05-09 08:39 | EKG Report ---
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
[2017-05-09] MEDS: PANTOPRAZOLE 40 MG TABLET PO SCH (09:55)
[2017-05-09] MEDS: ACETYLCYSTEINE 600 MG CAPSULE PO SCH ×2 (09:55→21:45)
[2017-05-09] MEDS: CLOPIDOGREL 75 MG TABLET PO SCH (09:55)
[2017-05-09] MEDS: NIFEdipine 10 MG CAPSULE PO PRN (09:55)
[2017-05-09] MEDS: ISOSORBIDE MONONITRATE 30 MG TABLET PO SCH (09:55)
[2017-05-09] MEDS: GABAPENTIN 300 MG CAPSULE PO SCH ×3 (09:55→21:45)
[2017-05-09] MEDS: amLODIPine 5 MG TABLET PO SCH (09:55)
[2017-05-09] MEDS: METOPROLOL TARTRATE 25 MG TABLET PO SCH ×2 (09:56→21:45)
[2017-05-09] MEDS: ASPIRIN EC 81 MG TABLET PO SCH (09:56)
[2017-05-09] MEDS: SODIUM BICARB INJ 50 MEQ in SODIUM CHLORIDE 0.45% 1,000 ML IV SCH ×2 (09:58→18:37)
[2017-05-09] MEDS: INSULIN GLARGINE 100 UNIT/ML SUBCUT SCH ×2 (10:03→21:45)
--- NOTE | 2017-05-09 10:13 | Nephrology Progress Note ---
Nephrology - PN: Subj Interval history: Patient denies shortness of breath. Review of systems cardiac-the patient complains a little bit of soreness in his left chest but for the most part is pain-free Physical exam general the patient is in no acute distress, he has no pitting edema Assessment/plan 1. Acute renal failure-this patient's creatinine is improved from 2.9 mg yesterday to 2.1 mg/dL today, his baseline a few months ago apparently was normal he did develop some acute renal injury in the interim related to vancomycin and a gangrenous toe infection. His creatinine was around 3 mg/dL about a month ago. 2. Syncope-this patient had a syncopal spell at home, he had some associated chest discomfort and subsequently had a cardiac cath with stent placement done yesterday. He continues on IV fluids and I started him on Mucomyst yesterday. 3. Hypertension this is controlled 4. Diabetes mellitus this is controlled 5. Coronary artery disease see #2 above Exam (PN)-Nephrology - Vital Signs Vital signs: Period Temp Pulse Resp BP Sys/Diaz Pulse Ox Last 24 Hr 97.2 F-98.7 F 68-103 16-20 132-210/67-111 79-100 - Lab 05/09/17 05:26 05/09/17 05:26 Most recent lab results Calcium 9.2 MG/DL (8.5-10.1) 05/09/17 05:26 Magnesium 2.0 MG/DL (1.8-2.4) 05/08/17 01:23 Assessment and Plan (1) Renal failure, unspecified Status: Acute Assessment and plan: It sounds like this patient had normal renal function about 2 months ago but then was admitted to the hospital with a gangrenous toe and received some antibiotics that resulted in some acute renal injury his creatinine increasing to around 3 mg/dL. It sounds as if his kidney function did not fully recover and returns today with a creatinine of 2.8 mg/dL. I agree with giving him IV fluids for renal protection from contrast am also going to add Mucomyst and will hold his diuretic and GARRICK inhibitor for the next 2 days. Current Visit: Yes (2) Coronary artery disease Status: Acute Assessment and plan: Patient status post stent placement today Current Visit: Yes (3) Chest pain Status: Acute Current Visit: Yes (4) Diabetes mellitus Status: Acute Current Visit: Yes (5) Syncope Status: Acute Current Visit: Yes (6) Anemia Status: Chronic Assessment and plan: Patient's hematocrit is 28% Current Visit: Yes (7) Former tobacco use Status: Chronic Current Visit: Yes (8) Hypertension Status: Chronic Current Visit: Yes (9) Obesity Status: Chronic Current Visit: Yes (10) Peripheral vascular disease Status: Chronic Assessment and plan: Patient has a left toe wound he has been getting antibiotics for this, I am going to ask the wound care team to see him. Current Visit: Yes Specialty Discharge - Follow Up or Referrals
--- NOTE | 2017-05-09 11:18 | Cardiology Progress Note ---
<Vanessa Stacy E - Last Filed: 05/09/17 11:16> Assessment and Plan - Time spent with patient Time spent with patient: Less than 30 minutes (1) Chest pain Status: Acute Assessment and plan: See plan of care listed below. Current Visit: Yes (2) Syncope Status: Acute Assessment and plan: See plan of care listed below. Current Visit: Yes (3) Hypertension Status: Chronic Assessment and plan: See plan of care listed below. Current Visit: Yes (4) Diabetes mellitus Status: Acute Assessment and plan: See plan of care listed below. Current Visit: Yes (5) Dyslipidemia Status: Chronic Assessment and plan: See plan of care listed below. Current Visit: Yes (6) Peripheral vascular disease Status: Chronic Assessment and plan: See plan of care listed below. Current Visit: Yes (7) Anemia Status: Chronic Assessment and plan: See plan of care listed below. Current Visit: Yes (8) Chronic kidney disease, stage 3 (moderate) Status: Chronic Assessment and plan: See plan of care listed below. Current Visit: Yes (9) Obesity Status: Chronic Assessment and plan: See plan of care listed below. Current Visit: Yes (10) Former tobacco use Status: Chronic Assessment and plan: See plan of care listed below. Current Visit: Yes (11) Abnormal abdominal CT scan Status: Acute Assessment and plan: See plan of care listed below. Current Visit: Yes Cardiology - PN: Subj Interval history: [place] FORMER: DR. LONDON PCP: Dr. Velázquez, switching to Dr. Vaca at [facility] SUMMARY: Mr. Willard is a 57 year old male with a history of hypertension, DVTs, dyslipidemia, peripheral vascular disease, chronic kidney disease stage III who was transferred to our facility from [facility] for further evaluation of chest pain and a syncopal episode. We are consulted to see him. He was noted to have an elevated troponin and EKG with ST -T abnormality. He previously had a negative cardiac workup in February 2017 at [facility] including echo and cardiac perfusion study. Since that time he has had recurrent chest pains and now presents with elevated troponin. She did this, he was taken for right and left heart catheterization by Dr. London. Nephrology was consulted due to his elevated creatinine, BUN, and decreased GFR posing an increased risk for receiving contrast. He was given Mucomyst and placed on a bicarbonate infusion. He was taken to the [facility] where he received proximal LAD stent for 89% stenosis with good results. He was noted to have an ejection fraction of 55-60%. His right-sided pressures were overall fairly unremarkable. MAY 09, 2017 UPDATE: Mr. Willard is doing well today. He has been up and ambulating about in his room. Bicarbonate infusion is still running. His right groin dressing was removed. There is no bleeding, hematoma, or bruit at site. Femoral pulses 3+. Peripheral pulses are present and palpable bilaterally. Wound care was consulted to evaluate the patient's left last toe wound. The patient's and daughter have expressed concern over liver lesions that the report were present on chest x-ray from [place]. Upon further review of his records, he underwent an abdominal CT on 03/18/2017 which noted multiple enhancing lesions within the left hepatic lobe. His liver enzymes are normal. Patient has an appointment with Dr. Vaca at [place] in 2 weeks. I conferred care with Dr. Mendez Olson and he agreed we should have records sent with the patient when he is discharged to follow-up with Dr. Vaca regarding his abnormal abdominal CT. ASSESSMENT/PLAN: 1. CHEST PAIN - Patient was found to have coronary artery disease prior [facility] yesterday. He underwent PCI and stenting of the proximal LAD by Dr. London. His troponin has risen appropriately and reports he is feeling better today although he still reports some left chest wall soreness. Cath site is stable with no bleeding, hematoma, or bruit at site. Femoral pulses 3+. Peripheral pulses present and palpable. 2. SYNCOPE -unsure of the etiology. Carotid Doppler revealed less than 50% stenosis bilaterally. Will get orthostatic vital signs. 3. HYPERTENSION - Currently well controlled with some elevated readings today. We will increase his Norvasc. We will continue to monitor and adjust accordingly. 4. HYPERLIPIDEMIA - Continue lipid lowering agent. Triglycerides 137, cholesterol 138, LDL 84, HDL 27. 5. DIABETES - Suspect uncontrolled. He currently is undergoing treatment at the wound center for removal of a gangrenous left last toe. 6. PERIPHERAL VASCULAR DISEASE - S/P left leg arterial bypass surgery on . 7. OBESITY - Chronic. 8. FORMER TOBACCO USE - Quit in 2005. 9. ANEMIA -Records from a recent visit with Dr. Velázquez reveal an H&H of 9.6 and 30.5. He is on dual antiplatelet therapy with aspirin Plavix due to his recent vascular surgery. Will check stool for occult blood. H&H today 8.6 and 25.9. He is asymptomatic. 10. CHRONIC KIDNEY DISEASE, STAGE 3 -nephrology was consulted. He was placed on a bicarbonate infusion and started on Mucomyst. Creatinine has improved to 2.1 today[address] -patient was noted to have normal CT on 03/18/2017 which noted multiple enhancing lesions within the left hepatic lobe. Liver enzymes have been normal. The family reports this has not been followed up on in the past any prior physicians. I conferred care with Dr. Olson and he agreed that reports and records should be sent with the patient and he will need to follow-up with Dr. Vaca at his appointment in 2 weeks regarding these results. Exam (Progress Note) - Constitutional Vitals: Period Temp Pulse Resp BP Sys/Diaz Pulse Ox Last 24 Hr 97.2 F-98.7 F 68-103 16-20 132-210/67-111 79-100 Exam: General: Present: Appears Well, No Apparent Distress. Pleasant and cooperative. Appears comfortable. HEENT: Present: PERRL, Normocephaly, atraumatic. Mucus Membranes Moist. No jaundice noted. Conjunctiva moist and clear, sclerae anicteric Neck: Present: Supple Neck, Midline Trachea, No Masses, No Bruit, No tenderness Cardiac: Present: Regular Rate and Rhythm, No Murmur Lungs: Present: Clear to auscultation bilaterally, no wheeze, rhonchi, rales. Neuro: Present: Awake, alert, and oriented x3. Moves all extremities well without hemiparesis or paralysis. Grossly Intact. Absent: Resting Tremor, Essential Tremor Abdomen: Present: Soft, Active Bowel Sounds, No Masses, Non-Tender, nondistended. No abdominal bruit or thrill noted. Skin: Present: Clear. Absent: Rash, No skin breakdown. Back: Normal inspection, no vertebral tenderness. Musculoskeletal: Present: No Fluid Collection, No Pain, Normal Range of Motion Extremities: Present: Normal Gait, No Clubbing, No Cyanosis, Upper Extr. Pulses 2+, Lower Extr. Pulses diminished, No edema. Left last toe wound open to air without s/s of infection. Capillary refill less than 3 seconds. Right groin: Dressing removed. Cath site open to air. No bleeding, hematoma, or bruit at site. Femoral pulses 3+. Peripheral pulses present and palpable bilaterally. Result/EKG - Labs CBC & BMP: 05/09/17 05:26 05/09/17 05:26 Lab Results: I have reviewed the past 24 hour labs Labs: Laboratory Results - last 24 hr 05/08/17 05/08/17 05/08/17 10:33 15:59 18:52 WBC RBC Hgb Hct MCV MCH MCHC RDW Plt Count MPV Neut % (Auto) Lymph % (Auto) Bremer % (Auto) Eos % (Auto) Baso % (Auto) Neut # (Auto) Lymph # (Auto) Bremer # (Auto) Eos # (Auto) Baso # (Auto) Immature Gran % Nucleated RBC % Immature Gran # Nucleated RBCs # Sodium Potassium Chloride Carbon Dioxide Anion Gap BUN Creatinine GFR Calculation BUN/Creatinine Ratio Glucose POC Glucose 260 H 300 H Calculated Osmolality Calcium Total Creatine Kinase 97 CK-MB (CK-2) 2.6 CK and CKMB Interp Troponin I 0.690 H D Triglycerides Cholesterol LDL Cholesterol VLDL Cholesterol HDL Cholesterol Heart Disease Risk Ratio 05/08/17 05/09/17 05/09/17 20:54 05:26 05:26 WBC 7.7 RBC 2.83 L Hgb 8.6 L Hct 25.9 L MCV 91.5 MCH 30 MCHC 33.2 RDW 12.2 Plt Count 114 L MPV 11.1 Neut % (Auto) 65.8 Lymph % (Auto) 18.5 L Bremer % (Auto) 12.9 H Eos % (Auto) 1.9 Baso % (Auto) 0.5 Neut # (Auto) 5.1 Lymph # (Auto) 1.4 Bremer # (Auto) 1.0 H Eos # (Auto) 0.2 Baso # (Auto) 0.0 Immature Gran % 0.4 Nucleated RBC % 0.0 Immature Gran # 0.03 Nucleated RBCs # 0.00 Sodium 141 Potassium 3.9 Chloride 107 Carbon Dioxide 28 Anion Gap 9.9 BUN 27 H Creatinine 2.10 H GFR Calculation 54 BUN/Creatinine Ratio 12.00 Glucose 165 H POC Glucose 258 H Calculated Osmolality 289.3 Calcium 9.2 Total Creatine Kinase 193 D CK-MB (CK-2) 28.8 H D CK and CKMB Interp 14.9 Troponin I 7.200 H D Triglycerides 100 Cholesterol 127 LDL Cholesterol 86.0 VLDL Cholesterol 20.0 HDL Cholesterol 26 L Heart Disease Risk Ratio 4.88 05/09/17 07:34 WBC RBC Hgb Hct MCV MCH MCHC RDW Plt Count MPV Neut % (Auto) Lymph % (Auto) Bremer % (Auto) Eos % (Auto) Baso % (Auto) Neut # (Auto) Lymph # (Auto) Bremer # (Auto) Eos # (Auto) Baso # (Auto) Immature Gran % Nucleated RBC % Immature Gran # Nucleated RBCs # Sodium Potassium Chloride Carbon Dioxide Anion Gap BUN Creatinine GFR Calculation BUN/Creatinine Ratio Glucose POC Glucose 176 H Calculated Osmolality Calcium Total Creatine Kinase CK-MB (CK-2) CK and CKMB Interp Troponin I Triglycerides Cholesterol LDL Cholesterol VLDL Cholesterol HDL Cholesterol Heart Disease Risk Ratio Quality Measures - VTE Contraindication to Pharmacological VTE Prophylaxis: High Risk of Bleeding Specialty Discharge - Follow Up or Referrals Follow up with: Michael London MD [Physician] - 2 Weeks (Follow up with Dr. London in 2 weeks for groin check. ) Michael Vaca MD [Physician] - 2 Weeks (Follow up with Dr. Vaca at [facility] in 2 weeks (please make sure appointment is scheduled). Please send copy of abdominal CT report and film with patient to review with Dr. Vaca. ) <Michael London - Last Filed: 05/09/17 12:08> Cardiology - PN: Subj Interval history: Patient personally interviewed and examined and chart reviewed. The patient's family is present specifically and daughter. Have discussed this case with Vanessa Stacy NP. I agree with the assessment and plan. In summation and addition I discussed with the patient and his family findings again and results. He has lateral chest wall pain he certainly does not sound to be cardiac. His troponin is up but probably appropriately for his intervention. Peak troponin is 8.86 with a peak CPK of 250. Certainly he may have some small side branch that was closed with intervention. He has not had any shortness of breath or other symptomatology. He has not been up very much. His lipids generally are stable. As noted his renal function with improved creatinine today to 2.1 after his intervention in contrast. Dr. Saini is following this. He has peripheral vascular disease and has a lesion on his left fifth toe. This is being evaluated by surgery and wound care. Insert had no further syncopal events. His blood pressure is better today. We have increase his Norvasc and will continue to monitor this while he is here. Generally from a cardiac standpoint he is stable. He should be able to go home within the next 24 hours from our standpoint depending on how his renal function and other issues progress. Exam (Progress Note) - Constitutional Vitals: Period Temp Pulse Resp BP Sys/Diaz Pulse Ox Last 24 Hr 97.7 F-98.7 F 68-103 16-20 123-210/61-111 79-100 Result/EKG - Labs CBC & BMP: 05/09/17 05:26 05/09/17 05:26 Labs: Laboratory Results - last 24 hr 05/08/17 05/08/17 05/08/17 15:59 18:52 20:54 WBC RBC Hgb Hct MCV MCH MCHC RDW Plt Count MPV Neut % (Auto) Lymph % (Auto) Bremer % (Auto) Eos % (Auto) Baso % (Auto) Neut # (Auto) Lymph # (Auto) Bremer # (Auto) Eos # (Auto) Baso # (Auto) Immature Gran % Nucleated RBC % Immature Gran # Nucleated RBCs # Sodium Potassium Chloride Carbon Dioxide Anion Gap BUN Creatinine GFR Calculation BUN/Creatinine Ratio Glucose POC Glucose 260 H 300 H 258 H Calculated Osmolality Calcium Total Creatine Kinase CK-MB (CK-2) CK and CKMB Interp Troponin I Triglycerides Cholesterol LDL Cholesterol VLDL Cholesterol HDL Cholesterol Heart Disease Risk Ratio 05/09/17 05/09/17 05/09/17 05:26 05:26 07:34 WBC 7.7 RBC 2.83 L Hgb 8.6 L Hct 25.9 L MCV 91.5 MCH 30 MCHC 33.2 RDW 12.2 Plt Count 114 L MPV 11.1 Neut % (Auto) 65.8 Lymph % (Auto) 18.5 L Bremer % (Auto) 12.9 H Eos % (Auto) 1.9 Baso % (Auto) 0.5 Neut # (Auto) 5.1 Lymph # (Auto) 1.4 Bremer # (Auto) 1.0 H Eos # (Auto) 0.2 Baso # (Auto) 0.0 Immature Gran % 0.4 Nucleated RBC % 0.0 Immature Gran # 0.03 Nucleated RBCs # 0.00 Sodium 141 Potassium 3.9 Chloride 107 Carbon Dioxide 28 Anion Gap 9.9 BUN 27 H Creatinine 2.10 H GFR Calculation 54 BUN/Creatinine Ratio 12.00 Glucose 165 H POC Glucose 176 H Calculated Osmolality 289.3 Calcium 9.2 Total Creatine Kinase 193 D CK-MB (CK-2) 28.8 H D CK and CKMB Interp 14.9 Troponin I 7.200 H D Triglycerides 100 Cholesterol 127 LDL Cholesterol 86.0 VLDL Cholesterol 20.0 HDL Cholesterol 26 L Heart Disease Risk Ratio 4.88 05/09/17 05/09/17 10:50 11:26 WBC RBC Hgb Hct MCV MCH MCHC RDW Plt Count MPV Neut % (Auto) Lymph % (Auto) Bremer % (Auto) Eos % (Auto) Baso % (Auto) Neut # (Auto) Lymph # (Auto) Bremer # (Auto) Eos # (Auto) Baso # (Auto) Immature Gran % Nucleated RBC % Immature Gran # Nucleated RBCs # Sodium Potassium Chloride Carbon Dioxide Anion Gap BUN Creatinine GFR Calculation BUN/Creatinine Ratio Glucose POC Glucose 266 H Calculated Osmolality Calcium Total Creatine Kinase 250 D CK-MB (CK-2) 31.6 H CK and CKMB Interp 12.6 Troponin I 8.860 H D Triglycerides Cholesterol LDL Cholesterol VLDL Cholesterol HDL Cholesterol Heart Disease Risk Ratio
[2017-05-09 11:34] LABS: CKMB % 12.6 %
[2017-05-09 11:38] LABS: Troponin I Only 8.86 NG/ML (0.00-0.045)
--- NOTE | 2017-05-09 12:05 | General Surgery Consult Note ---
Assessment and Plan - Time spent with patient Time spent with patient: Greater than 30 minutes (1) Pain of fifth toe Status: Acute Assessment and plan: 57-year-old -Finnish male status post CABG admitted with syncope, chest pain, shortness of breath. Dr. Edmond was consulted to evaluate his left fifth toe pain. Will obtain a foot x-ray to rule out bone involvement and get some ABIs to check blood flow. Patient does not have palpable pulses and his foot is cool to the touch. But there are no signs of infection and recommend that the antibiotics can be stopped. Patient most likely has an ischemic toe from previous emboli. Continue current wound care per Tyesha LEDEZMA and Dr. Edmond will follow up on x-rays and ABIs. Dr. Edmond has seen and examined patient and further recommendations to follow. Current Visit: Yes (2) Diabetes mellitus Status: Acute Current Visit: Yes (3) Peripheral vascular disease Status: Chronic Current Visit: Yes History of Present Illness Chief complaint: Left fifth toe pain History of present illness: Mr. Willard is a 57 year old -Finnish male with history of hypertension, DVTs, dyslipidemia, PVD, chronic kidney disease that was admitted with chest pain, syncope, and shortness of breath. While undergoing his workup patient requested to be seen by wound care for his right fifth toe. Patient states it started with severe pain several months ago but has improved status post CABG. He states he sees Dr. Russell a director bioinformatics at [facility]. He states he has been painting it with Betadine or iodine and Dr. Tipton remove the toenail not too long ago. Patient has been on antibiotics for a while and is requesting second opinion to see if antibiotics are needed. Tyesha LEDEZMA and Dr. Olson requested second opinion. Patient's vital signs are normal and his WBCs are normal. He does have pain on the ventral surface of the fifth toe with some mild discoloration. There are no signs of infection, erythema, purulence or odor. Dr. Edmond has been consulted to evaluate. Home Medications Medication Instructions Recorded Confirmed Type Aspirin [Lo-Dose Aspirin EC] 81 mg PO 0900 03/13/17 05/07/17 History Insulin Glargine,Hum.rec.anlog 0 - 75 units SUBCUT BID 03/13/17 05/07/17 History [Lantus SoloStar] Lisinopril/Hydrochlorothiazide 1 each PO BID 03/13/17 05/07/17 History [Lisinopril-Hctz 20-12.5 mg Tab] Metformin HCl [Metformin HCl ER] 1,000 mg PO BID 03/13/17 05/07/17 History Pravastatin [Pravachol] 40 mg PO BEDTIME 03/13/17 05/07/17 History amLODIPine [Norvasc] 5 mg PO 0900 03/13/17 05/07/17 History Ciprofloxacin Tab [Cipro Tab] 500 mg PO BID 05/07/17 05/07/17 History Clopidogrel [Plavix] 75 mg PO 0900 05/07/17 05/07/17 History Gabapentin Cap/Tab [Neurontin 300 mg PO TID 05/07/17 05/07/17 History Cap/Tab] Isosorbide Mononitrate [Isosorbide 30 mg PO QAM 05/07/17 05/07/17 History Mononitrate ER] Allergies Allergy/AdvReac Type Severity Reaction Status Date / Time No Known Allergies Allergy Verified 03/13/17 17:42 Medical,Surgical,& Family Hx - Medical History Cardio: History of: Hypertension, PVD Neurology: History of: Cerebrovascular Accident (2004), Peripheral Neuropathy No history of: Seizures Endocrine: History of: Diabetes Mellitus (IDDM), Dyslipidemia Respiratory: History of: Obstructive Sleep Apnea (cpap) - Surgical History Cardiac Surgeries: Patient Denies: Cardiac Catheterization - Family History Family History: Reports;: Family Cancer, Family Heart Disease, Family Hypertension - Social History Smoking Status: Former smoker (quit in 2005) Frequency of Alcohol Use: None Type of Drug Use: None - Constitutional Constitutional: Present: as per HPI Exam - Constitutional Vitals: Period Temp Pulse Resp BP Sys/Diaz Pulse Ox Last 24 Hr 97.7 F-98.7 F 68-103 16-20 123-210/61-111 79-100 Exam: 57-year-old obese -Finnish male, no acute distress, alert and oriented Chest clear CV regular rate and rhythm Abdomen obese, nontender Extremities with no edema, right fifth toe with mild discoloration, no signs of infection Quality Measures - VTE Contraindication to Pharmacological VTE Prophylaxis: High Risk of Bleeding Results - Labs CBC & BMP: 05/09/17 05:26 07/14/17 05:26 Lab Results: I have reviewed the past 24 hour labs Specialty Discharge - Follow Up or Referrals Follow up with: Michael Gregory MD [Physician] - 2 Weeks (Follow up with Dr. Gregory in 2 weeks for groin check. ) Michael Vaca MD [Physician] - 2 Weeks (Follow up with Dr. aVca at [facility] in 2 weeks (please make sure appointment is scheduled). Please send copy of abdominal CT report and film with patient to review with Dr. Vaca. )
--- NOTE | 2017-05-09 12:19 | XRay Report ---
Right foot, 3 views. Indication: Fifth toe infection. There is soft tissue swelling about the fifth toe. Possible small amount of air in the soft tissues. No radiodense foreign body. At the distal tuft, there is noted, on the oblique view to be loss of cortex present. This is consistent with active osteomyelitis. No evidence of fracture. Small vessel atherosclerotic disease indicative of diabetes. Degenerative changes are noted at the first metatarsophalangeal joint and the calcaneus. Impression: Findings suspicious for active osteomyelitis of the distal phalanx of the fifth toe. Associated cellulitis. PROCEDURE INTERPRETED AT [facility] DEPARTMENT OF RADIOLOGY Final Report Signed by: Dr. Raven Valdes
[2017-05-09] MEDS: SULFAMETHOX/TRIMETHOPRIM 800-160 MG TABLET PO SCH (12:42)
[2017-05-09] MEDS: CIPROFLOXACIN 500 MG TABLET PO SCH (12:42)
--- NOTE | 2017-05-09 12:43 | Hospitalist Progress Note ---
Assessment and Plan (1) Coronary artery disease Status: Acute Assessment and plan: The patient will continue recovery of the PTCA. Hemodynamics are stable. The patient is not having any angina. I reviewed the evaluation of the nurses and evaluated the patient myself. The patient will continue hydration on telemetry doshi today. We will recheck electrolytes tomorrow. Current Visit: Yes (2) Diabetes mellitus Status: Acute Current Visit: Yes (3) Chronic kidney disease, stage 3 (moderate) Status: Chronic Current Visit: Yes Hospitalist: Subjective Interval history: Mr. Willard had PTCA of the left anterior descending artery yesterday. The patient is resting quietly in bed today. Creatinine is improving. Exam - Constitutional Vitals: Period Temp Pulse Resp BP Sys/Diaz Pulse Ox Last 24 Hr 97.7 F-98.7 F 68-103 16-20 123-210/61-111 79-100 Exam: Constitutional System: Minimal distress. No tremulousness. The patient is mildly lethargic but arousable Head: Normocephalic, atraumatic. Ears, Nose and Throat System: No evidence of Otitis or Mastoiditis. No epistaxis or discharge Eyes System: Pupils equal, round, and reactive. Extraocular muscles intact. Neck: Supple, without adenopathy, No jugular venous distention. No thyromegaly , neck mass, or prior surgery apparent. Respiratory System: Chest clear to auscultation. Lung volumes are smaller than optimal Cardiovascular System: Heart with regular rate and rhythm. No murmur. GI System: Abdomen soft, nontender. Normo active bowel sounds present. Musculoskeletal System: limbs with no pedal edema. Full distal pulses. Neurological System: No discernable sensory deficit. No aphasia Psychiatric System: Conversation is rational Results - Labs CBC & BMP: 05/09/17 05:26 05/09/17 05:26 Lab Results: I have reviewed the past 24 hour labs Quality Measures - VTE Contraindication to Pharmacological VTE Prophylaxis: High Risk of Bleeding Specialty Discharge - Follow Up or Referrals Follow up with: Michael Gregory MD [Physician] - 2 Weeks (Follow up with Dr. Gregory in 2 weeks for groin check. ) Michael Vaca MD [Physician] - 2 Weeks (Follow up with Dr. Vaca at [place] in 2 weeks (please make sure appointment is scheduled). Please send copy of abdominal CT report and film with patient to review with Dr. Vaca. )
[2017-05-09] MEDS: amLODIPine 10 MG TABLET PO SCH (12:44)
[2017-05-09] MEDS: PIPERACILLIN/TAZOBACTAM 3,375 MG in SODIUM CHLORIDE 0.9% 100 ML IV SCH ×2 (14:44→23:43)
[2017-05-09] MEDS: ENOXAPARIN 30 MG/0.3 ML SYRINGE SUBCUT SCH (18:37)
[2017-05-09] MEDS: PRAVASTATIN 40 MG TABLET PO SCH (21:45)
[2017-05-10] MEDS: SODIUM BICARB INJ 50 MEQ in SODIUM CHLORIDE 0.45% 1,000 ML IV SCH ×2 (06:03→17:06)
[2017-05-10 06:19] LABS: Magnesium 2.2 MG/DL (1.8-2.4); Potassium 3.6 MMOL/L (3.5-5.1)
[2017-05-10] MEDS: PIPERACILLIN/TAZOBACTAM 3,375 MG in SODIUM CHLORIDE 0.9% 100 ML IV SCH ×3 (06:41→23:31)
--- NOTE | 2017-05-10 08:13 | General Surgery Progress Note ---
Assessment and Plan (1) Osteomyelitis Status: Acute Assessment and plan: Impression: Osteomyelitis left fifth toe Plan: Given his recent heart issues elevated troponins and recent stent placement I think we should treat the osteomyelitis conservatively. Avoid general anesthesia. Think it is reasonable to treat with antibiotics to see if the osteo-resolves. I will consult Dr. Nasrin Montilla on Friday to evaluate him for outpatient antibiotics. No plans for surgical intervention at this time. He can follow-up with me if needed but I will defer management to Dr. Moore. He also has appointments with Dr. Vaca and Dr. Garcia at [facility] in the near future. Current Visit: Yes Subjective Patient reports: Present: no new complaints, feels better Narrative: Patient states his left fifth toe tenderness has improved since he was started on antibiotics yesterday. Overall it was much better than it was several weeks ago. He is apparently had a left lower extremity bypass graft placed by Dr. Garcia at [facility] several weeks ago. He is currently without complaints. Exam - Constitutional Vitals: Period Temp Pulse Resp BP Sys/Diaz Pulse Ox Last 24 Hr 97.1 F-98.6 F 77-85 16-20 122-138/61-72 93-99 General appearance: no acute distress - Head Head exam: Present: normocephalic - Neck Neck exam: Present: normal inspection - Extremities Exam Extremities exam: Present: other (No change of the left fifth toe. He is a dry wound present. There is no external sign of infection. There is no erythema. No tenderness.) Results - Labs CBC & BMP: 05/09/17 05:26 05/10/17 05:08 Lab Results: I have reviewed the past 24 hour labs Quality Measures - VTE Contraindication to Pharmacological VTE Prophylaxis: High Risk of Bleeding Specialty Discharge - Follow Up or Referrals Follow up with: Michael Gregory MD [Physician] - 2 Weeks (Follow up with Dr. Gregory in 2 weeks for groin check. ) Michael Vaca MD [Physician] - 2 Weeks (Follow up with Dr. Vaca at [place] in 2 weeks (please make sure appointment is scheduled). Please send copy of abdominal CT report and film with patient to review with Dr. Vaca. )
[2017-05-10] MEDS: METOPROLOL TARTRATE 25 MG TABLET PO SCH ×2 (09:52→21:33)
[2017-05-10] MEDS: LISINOPRIL/HCTZ 20-12.5 MG TABLET PO SCH ×2 (09:52→21:33)
[2017-05-10] MEDS: CLOPIDOGREL 75 MG TABLET PO SCH (09:53)
[2017-05-10] MEDS: amLODIPine 10 MG TABLET PO SCH (09:53)
[2017-05-10] MEDS: ASPIRIN EC 81 MG TABLET PO SCH (09:53)
[2017-05-10] MEDS: ACETYLCYSTEINE 600 MG CAPSULE PO SCH (09:53)
[2017-05-10] MEDS: GABAPENTIN 300 MG CAPSULE PO SCH ×3 (09:53→21:33)
[2017-05-10] MEDS: ISOSORBIDE MONONITRATE 30 MG TABLET PO SCH (09:53)
[2017-05-10] MEDS: PANTOPRAZOLE 40 MG TABLET PO SCH (09:53)
[2017-05-10] MEDS: INSULIN GLARGINE 100 UNIT/ML SUBCUT SCH ×2 (09:54→21:33)
--- NOTE | 2017-05-10 11:01 | Hospitalist Progress Note ---
Assessment and Plan (1) Coronary artery disease Status: Acute Assessment and plan: The patient will continue recovery of the PTCA. Hemodynamics are stable. The patient is not having any angina. Renal function is stable. The patient is receiving IV antibiotics for foot infection. We will continue treatment and recheck electrolytes tomorrow. Current Visit: Yes (2) Diabetes mellitus Status: Acute Current Visit: Yes (3) Chronic kidney disease, stage 3 (moderate) Status: Chronic Current Visit: Yes Hospitalist: Subjective Interval history: The patient has no chest discomfort today. The patient's shortness of breath is improved. The patient is receiving IV antibiotics for an infected foot and toe. Exam - Constitutional Vitals: Period Temp Pulse Resp BP Sys/Diaz Pulse Ox Last 24 Hr 97.1 F-98.6 F 77-85 16-20 122-138/61-72 93-99 Exam: Constitutional System: Minimal distress. No tremulousness. The patient is alert Head: Normocephalic, atraumatic. Ears, Nose and Throat System: No evidence of Otitis or Mastoiditis. No epistaxis or discharge Eyes System: Pupils equal, round, and reactive. Extraocular muscles intact. Neck: Supple, without adenopathy, No jugular venous distention. No thyromegaly , neck mass, or prior surgery apparent. Respiratory System: Chest clear to auscultation. Lung volumes are smaller than optimal Cardiovascular System: Heart with regular rate and rhythm. No murmur. GI System: Abdomen soft, nontender. Normo active bowel sounds present. Musculoskeletal System: limbs with no pedal edema. Full distal pulses. Neurological System: No discernable sensory deficit. No aphasia Psychiatric System: Conversation is rational Results - Labs CBC & BMP: 05/09/17 05:26 05/10/17 05:08 Lab Results: I have reviewed the past 24 hour labs Quality Measures - VTE Contraindication to Pharmacological VTE Prophylaxis: High Risk of Bleeding Specialty Discharge - Follow Up or Referrals Follow up with: Michael Gregory MD [Physician] - 2 Weeks (Follow up with Dr. Gregory in 2 weeks for groin check. ) Michael Vaca MD [Physician] - 2 Weeks (Follow up with Dr. Vaca at [place] in 2 weeks (please make sure appointment is scheduled). Please send copy of abdominal CT report and film with patient to review with Dr. Vaca. )
--- NOTE | 2017-05-10 12:14 | Cardiology Progress Note ---
Assessment and Plan (1) Syncope Status: Acute Assessment and plan: Patient has had no further symptomatology and is probably resolving. Is not clear the etiology of this. Current Visit: Yes (2) Hypertension Status: Chronic Assessment and plan: Blood pressure is much better on present medications. Current Visit: Yes (3) Dyslipidemia Status: Chronic Assessment and plan: Continue his present medication. Lipids reveal lipids well controlled and managed. Current Visit: Yes (4) Peripheral vascular disease Status: Chronic Assessment and plan: He has had leg surgery specifically left leg. He has an ulcer on his left foot this being treated by surgery. Current Visit: Yes (5) Chronic kidney disease, stage 3 (moderate) Status: Chronic Assessment and plan: This is stable postcontrast. Current Visit: Yes (6) Anemia Status: Chronic Assessment and plan: This is somewhat chronic and may be from chronic disease. Has no acute bleeding sources. Current Visit: Yes (7) Obesity Status: Chronic Assessment and plan: Patient certainly needs to lose weight. This would be benefit of his other medical issues and problems. Current Visit: Yes (8) Coronary artery disease Status: Acute Assessment and plan: Patient now post stenting of the LAD. He is clinically stable with this. Current Visit: Yes (9) Diabetes mellitus Status: Acute Assessment and plan: Continue treatment for this. Current Visit: Yes Cardiology - PN: Subj Interval history: Patient mornings having a nosebleed which usually does not have. I think we will need to stop his Lovenox. From cardiac standpoint though is not having angina or anginal equivalent has had no chest pain since his stent placement his LAD. His telemetry is stable. He has been up and about the room. His renal function is stable and creatinine is increased from 2.1-2.3. BUN is actually decreased. He has been a little anemic but not sure if this is old or new. He came in being anemic. This could be secondary to chronic disease. Stool for occult blood is been ordered. He has serial H&H's and metabolic panels ordered. We will follow-up on these. He states his fifth toes left foot feels better. This apparently is improving he is on IV antibiotics. Exam (Progress Note) - Constitutional Vitals: Period Temp Pulse Resp BP Sys/Diaz Pulse Ox Last 24 Hr 97.1 F-98.6 F 66-85 14-20 122-139/63-72 93-99 Exam: General appearance: Obese, no acute distress HEENT exam: normal inspection, atraumatic, he does holding his nose from a nosebleed. PERRL, EOM intact. Neck exam: normal inspection no JVD. No carotid bruit. Trachea is in midline Respiratory/lungs exam: clear to auscultation bilaterally good air movement. Cardiovascular exam: regular rate and rhythm, no murmur or gallop or rub. No precordial lift. Chest wall exam: nontender GI/Abdominal exam: normal bowel sounds, soft, nontender, no abdominal bruits or pulsatile masses. Extremeties/musculoskeletal: normal inspection without edema or cyanosis. Fifth toe left foot with some ulceration. Neurological exam: alert, oriented X3, no focal deficits Psychiatric exam: normal affect, normal mood. Cognitive function is grossly normal. Skin exam: normal color, warm Result/EKG - Labs CBC & BMP: 05/09/17 05:26 05/10/17 05:08 Lab Results: I have reviewed the past 24 hour labs (Lab work noted in discussed above.) Labs: Laboratory Results - last 24 hr 05/09/17 05/09/17 05/10/17 16:39 20:22 05:08 Sodium 143 Potassium 3.6 Chloride 107 Carbon Dioxide 29 Anion Gap 10.6 BUN 24 H Creatinine 2.30 H GFR Calculation 49 BUN/Creatinine Ratio 10.00 Glucose 94 POC Glucose 232 H 229 H Calculated Osmolality 288.0 Calcium 9.0 Magnesium 2.2 B-Natriuretic Peptide 05/10/17 05/10/17 05:08 07:32 Sodium Potassium Chloride Carbon Dioxide Anion Gap BUN Creatinine GFR Calculation BUN/Creatinine Ratio Glucose POC Glucose 96 Calculated Osmolality Calcium Magnesium B-Natriuretic Peptide 331 H - Impressions Impressions: Telemetry with normal sinus rhythm without recorded dysrhythmias. Quality Measures - VTE Contraindication to Pharmacological VTE Prophylaxis: High Risk of Bleeding Specialty Discharge - Follow Up or Referrals Follow up with: Michael Gregory MD [Physician] - 2 Weeks (Follow up with Dr. Gregory in 2 weeks for groin check. ) Michael Vaca MD [Physician] - 2 Weeks (Follow up with Dr. Vaca at [place] in 2 weeks (please make sure appointment is scheduled). Please send copy of abdominal CT report and film with patient to review with Dr. Vaca. )
[2017-05-10] MEDS ORDERED: MAGNESIUM HYDROXIDE SUSP 30 ML UDCUP PO PRN (13:02)
[2017-05-10] MEDS ORDERED: ALUMINUM/MAGNES/SIMETH MAX STR 30 ML UDCUP PO PRN (13:03)
--- NOTE | 2017-05-10 14:22 | Nephrology Progress Note ---
Nephrology - PN: Subj Interval history: Patient is sitting up resting visiting with his family. He voices no complaints. No shortness of breath or chest pain. Serum creatinine is noted be 2.3. Exam (PN)-Nephrology - Vital Signs Vital signs: Period Temp Pulse Resp BP Sys/Diaz Pulse Ox Last 24 Hr 97.1 F-98.6 F 66-85 14-20 122-139/63-72 93-99 - General Appearance General appearance: well-developed, well-nourished EENT: ATNC Neck: supple Respiratory: clear Cardiology: regular rate, regular rhythm Gastrointestinal: normoactive bowel sounds, no tenderness, no guarding Neurologic: alert and oriented x3 Musculoskeletal: no deformities, no clubbing Psychiatric: mood/affect appropriate - Lab 05/09/17 05:26 05/10/17 05:08 Most recent lab results Calcium 9.0 MG/DL (8.5-10.1) 05/10/17 05:08 Magnesium 2.2 MG/DL (1.8-2.4) 05/10/17 05:08 Assessment and Plan (1) Syncope Status: Resolved Current Visit: Yes (2) Chronic kidney disease, stage 3 (moderate) Status: Chronic Assessment and plan: Daily BMP. Current Visit: Yes (3) Obesity Status: Chronic Current Visit: Yes (4) Coronary artery disease Status: Acute Current Visit: Yes Specialty Discharge - Follow Up or Referrals Follow up with: Michael Gregory MD [Physician] - 2 Weeks (Follow up with Dr. Gregory in 2 weeks for groin check. ) Michael Vaca MD [Physician] - 2 Weeks (Follow up with Dr. Vaca at [place] in 2 weeks (please make sure appointment is scheduled). Please send copy of abdominal CT report and film with patient to review with Dr. Vaca. )
[2017-05-10] MEDS ORDERED: ENOXAPARIN 40 MG/0.4 ML SYRINGE SUBCUT SCH (18:30)
[2017-05-10] MEDS: PRAVASTATIN 40 MG TABLET PO SCH (21:33)
[2017-05-11] MEDS: SODIUM BICARB INJ 50 MEQ in SODIUM CHLORIDE 0.45% 1,000 ML IV SCH ×2 (03:18→13:47)
[2017-05-11 04:50] LABS: Basophils % 0.7 % (0.0-0.8); Eosinophils # 0.2 10*3/uL (0.0-0.87); Hematocrit 23.5 VOL% (42.0-52.0); Hemoglobin 7.8 GM/DL (14.0-18.0); Immature Granulocytes % 0.3 %; Immature Granulocytes Absolute 0.02 #; Lymphocytes # 1.5 10*3/uL (1.4-4.0); Mean Corpuscular HGB Conc 33.2 GM/DL (32-36); Mean Corpuscular Hemoglobin 31 PG (27-34); Mean Corpuscular Volume 92.5 FL (87-102); Mean Platelet Volume 11.7 FL (9.6-12.0); Monocytes # 0.7 10*3/uL (0.11-0.8); Monocytes % 11.8 % (1.7-12.7); Neutrophils # 3.6 10*3/uL (1.4-7.4); Neutrophils % 59.2 % (38.7-73.9); Platelet Count 108 T/CUMM (130-400); Red Blood Count 2.54 MC/CUMM (3.8-5.5); Red Cell Distribution Width 12.1 % (9.3-17.3)
[2017-05-11 05:18] LABS: Calcium 8.3 MG/DL (8.5-10.1); Magnesium 2.5 MG/DL (1.8-2.4); Osmolality,Calculated 288.1 MOS/KG (273-304); Potassium 3.6 MMOL/L (3.5-5.1)
[2017-05-11] MEDS: PIPERACILLIN/TAZOBACTAM 3,375 MG in SODIUM CHLORIDE 0.9% 100 ML IV SCH ×2 (06:33→13:46)
[2017-05-11] MEDS: LISINOPRIL/HCTZ 20-12.5 MG TABLET PO SCH ×2 (08:39→21:17)
[2017-05-11] MEDS: INSULIN GLARGINE 100 UNIT/ML SUBCUT SCH ×2 (08:40→21:16)
[2017-05-11] MEDS: ASPIRIN EC 81 MG TABLET PO SCH (08:40)
[2017-05-11] MEDS: METOPROLOL TARTRATE 25 MG TABLET PO SCH ×2 (08:40→21:17)
[2017-05-11] MEDS: GABAPENTIN 300 MG CAPSULE PO SCH ×3 (08:40→21:18)
[2017-05-11] MEDS: ISOSORBIDE MONONITRATE 30 MG TABLET PO SCH (08:40)
[2017-05-11] MEDS: amLODIPine 10 MG TABLET PO SCH (08:40)
[2017-05-11] MEDS: PANTOPRAZOLE 40 MG TABLET PO SCH (08:40)
[2017-05-11] MEDS: CLOPIDOGREL 75 MG TABLET PO SCH (08:40)
--- NOTE | 2017-05-11 09:17 | Nephrology Progress Note ---
Nephrology - PN: Subj Interval history: Patient is resting comfortably no acute changes. Serum creatinine is noted to be 2.2 which is better than yesterday. Her pressure has been stable. Anemia noted. Exam (PN)-Nephrology - Vital Signs Vital signs: Period Temp Pulse Resp BP Sys/Diaz Pulse Ox Last 24 Hr 97.2 F-98.1 F 66-79 14-18 118-164/63-79 94-99 - General Appearance General appearance: well-developed, well-nourished EENT: ATNC Neck: supple Respiratory: clear Cardiology: no edema, regular rate, regular rhythm Gastrointestinal: normoactive bowel sounds, no tenderness Neurologic: alert and oriented x3, CN 3-12 intact Musculoskeletal: no clubbing Psychiatric: mood/affect appropriate - Lab 05/11/17 09:38 05/11/17 03:48 Most recent lab results Calcium 8.3 MG/DL (8.5-10.1) L 05/11/17 03:48 Magnesium 2.5 MG/DL (1.8-2.4) H 05/11/17 03:48 Assessment and Plan (1) Syncope Status: Resolved Current Visit: Yes (2) Chronic kidney disease, stage 3 (moderate) Status: Chronic Assessment and plan: Daily BMP. Current Visit: Yes (3) Obesity Status: Chronic Current Visit: Yes (4) Coronary artery disease Status: Chronic Current Visit: Yes Specialty Discharge - Follow Up or Referrals Follow up with: Michael Gregory MD [Physician] - 2 Weeks (Follow up with Dr. Gregory in 2 weeks for groin check. ) Michael Vaca MD [Physician] - 2 Weeks (Follow up with Dr. Vaca at [place] in 2 weeks (please make sure appointment is scheduled). Please send copy of abdominal CT report and film with patient to review with Dr. Vaca. )
--- NOTE | 2017-05-11 09:26 | Cardiology Progress Note ---
Assessment and Plan (1) Syncope Status: Resolved Assessment and plan: This is been stable he has had no further symptomatology. Said no rhythm disturbance. Current Visit: Yes (2) Hypertension Status: Chronic Assessment and plan: His vital signs are stable. Current Visit: Yes (3) Dyslipidemia Status: Chronic Assessment and plan: This is stable present medical regimen we will continue his statin drugs. Current Visit: Yes (4) Peripheral vascular disease Status: Chronic Assessment and plan: He has had leg surgery specifically left leg. He has an ulcer on his left foot this being treated by surgery. Current Visit: Yes (5) Chronic kidney disease, stage 3 (moderate) Status: Chronic Assessment and plan: This is stable postcontrast. Is being followed by nephrology. Current Visit: Yes (6) Anemia Status: Chronic Assessment and plan: His H&H drops more. Will await his occult stool collected this morning. He may need GI evaluation patient this is positive. I do think we need to do some lab work for anemia but also go ahead and give 2 units of blood. Current Visit: Yes (7) Obesity Status: Chronic Assessment and plan: Patient certainly needs to lose weight. This would be benefit of his other medical issues and problems. Current Visit: Yes (8) Coronary artery disease Status: Chronic Assessment and plan: Patient now post stenting of the LAD. He is clinically stable with this. Current Visit: Yes (9) Diabetes mellitus Status: Acute Assessment and plan: Hospital service is following this. Current Visit: Yes Cardiology - PN: Subj Interval history: Patient from a cardiac standpoint is done well. The only chest pain he has is his chronic pain in his left posterior chest. He has not had any the other chest pain he was admitted with. He had a nosebleed yesterday that resolved quickly no return. I am concerned that his hematocrit though was at 23.5 now. With having coronary disease I would like to see his H&H better than this. Transfusion with it would be appropriate. Parent this morning a stool sample was sent for occult blood but is not back yet. Did discuss with he and his giving him 2 units of blood. His renal function is stable. Nephrology is following. His telemetry is remained stable. Exam (Progress Note) - Constitutional Vitals: Period Temp Pulse Resp BP Sys/Diaz Pulse Ox Last 24 Hr 97.2 F-98.1 F 66-79 14-18 118-164/63-79 94-99 Exam: General appearance: Obese, no acute distress HEENT exam: normal inspection, atraumatic. PERRL, EOM intact. Neck exam: normal inspection no JVD. No carotid bruit. Trachea is in midline Respiratory/lungs exam: clear to auscultation bilaterally good air movement. Cardiovascular exam: regular rate and rhythm, no murmur or gallop or rub. No precordial lift. Chest wall exam: nontender GI/Abdominal exam: normal bowel sounds, soft, nontender, no abdominal bruits or pulsatile masses. Extremeties/musculoskeletal: normal inspection without edema or cyanosis. Fifth toe left foot with some ulceration. Neurological exam: alert, oriented X3, no focal deficits Psychiatric exam: normal affect, normal mood. Cognitive function is grossly normal. Skin exam: normal color, warm Result/EKG - Labs CBC & BMP: 05/11/17 03:48 05/11/17 03:48 Lab Results: I have reviewed the past 24 hour labs Labs: Laboratory Results - last 24 hr 05/10/17 05/10/17 05/10/17 12:01 16:58 21:01 WBC RBC Hgb Hct MCV MCH MCHC RDW Plt Count MPV Neut % (Auto) Lymph % (Auto) Woods % (Auto) Eos % (Auto) Baso % (Auto) Neut # (Auto) Lymph # (Auto) Woods # (Auto) Eos # (Auto) Baso # (Auto) Immature Gran % Nucleated RBC % Immature Gran # Nucleated RBCs # Sodium Potassium Chloride Carbon Dioxide Anion Gap BUN Creatinine GFR Calculation BUN/Creatinine Ratio Glucose POC Glucose 105 145 H 251 H Calculated Osmolality Calcium Magnesium 05/11/17 05/11/17 05/11/17 03:48 03:48 08:27 WBC 6.0 RBC 2.54 L Hgb 7.8 L Hct 23.5 L MCV 92.5 MCH 31 MCHC 33.2 RDW 12.1 Plt Count 108 L MPV 11.7 Neut % (Auto) 59.2 Lymph % (Auto) 25.0 Woods % (Auto) 11.8 Eos % (Auto) 3.0 Baso % (Auto) 0.7 Neut # (Auto) 3.6 Lymph # (Auto) 1.5 Woods # (Auto) 0.7 Eos # (Auto) 0.2 Baso # (Auto) 0.0 Immature Gran % 0.3 Nucleated RBC % 0.0 Immature Gran # 0.02 Nucleated RBCs # 0.00 Sodium 142 Potassium 3.6 Chloride 105 Carbon Dioxide 28 Anion Gap 12.6 BUN 22 H Creatinine 2.20 H GFR Calculation 51 BUN/Creatinine Ratio 10.00 Glucose 160 H POC Glucose 139 H Calculated Osmolality 288.1 Calcium 8.3 L Magnesium 2.5 H - Impressions Impressions: Telemetry normal sinus rhythm. Quality Measures - VTE Contraindication to Pharmacological VTE Prophylaxis: High Risk of Bleeding Specialty Discharge - Follow Up or Referrals Follow up with: Michael Gregory MD [Physician] - 2 Weeks (Follow up with Dr. Gregory in 2 weeks for groin check. ) Michael Vaca MD [Physician] - 2 Weeks (Follow up with Dr. Vaca at [place] in 2 weeks (please make sure appointment is scheduled). Please send copy of abdominal CT report and film with patient to review with Dr. Vaca. )
[2017-05-11] MEDS ORDERED: SODIUM CHLORIDE 0.9% 250 ML IV PRN (09:30)
[2017-05-11 09:52] LABS: % Iron Saturation 17.5 % (18-50); Ferritin 301.3 ng/ml (26-388)
[2017-05-11 10:05] LABS: Folate 5.4 NG/ML (5.4-24.0)
[2017-05-11 10:09] LABS: Basophils % 0.7 % (0.0-0.8); Eosinophils # 0.1 10*3/uL (0.0-0.87); Eosinophils % 2.3 % (0.00-10.9); Hematocrit 26.2 VOL% (42.0-52.0); Hemoglobin 8.6 GM/DL (14.0-18.0); Immature Granulocytes % 0.5 %; Immature Granulocytes Absolute 0.03 #; Lymphocytes # 1.2 10*3/uL (1.4-4.0); Lymphocytes % 19.8 % (21.2-54.2); Mean Corpuscular HGB Conc 32.8 GM/DL (32-36); Mean Corpuscular Hemoglobin 31 PG (27-34); Mean Corpuscular Volume 92.9 FL (87-102); Mean Platelet Volume 11.3 FL (9.6-12.0); Monocytes # 0.7 10*3/uL (0.11-0.8); Monocytes % 11.1 % (1.7-12.7); Neutrophils # 3.9 10*3/uL (1.4-7.4); Neutrophils % 65.6 % (38.7-73.9); Platelet Count 130 T/CUMM (130-400); Red Blood Count 2.82 MC/CUMM (3.8-5.5); Red Cell Distribution Width 12.2 % (9.3-17.3)
[2017-05-11 11:08] LABS: Band Neutrophils 2 % (0-10); Lymphocytes 23 % (20-55); Segmented Neutrophils 67 % (50-85); Total Cells Counted 100
[2017-05-11 11:14] LABS: Hypochromasia 1+
[2017-05-11 11:15] LABS: Platelet Estimate Adequate
--- NOTE | 2017-05-11 13:53 | Hospitalist Progress Note ---
Assessment and Plan (1) Coronary artery disease Status: Chronic Assessment and plan: The patient will continue recovery of the PTCA. Hemodynamics are stable. The patient is not having any angina. Renal function is stable. The patient is receiving IV antibiotics for foot infection. We will continue treatment and recheck electrolytes tomorrow. The patient is receiving transfusion today. Will recheck hemoglobin tomorrow. Discharge plan is to home. Current Visit: Yes (2) Diabetes mellitus Status: Acute Current Visit: Yes (3) Chronic kidney disease, stage 3 (moderate) Status: Chronic Current Visit: Yes Hospitalist: Subjective Interval history: The patient was admitted to the hospital with some dull chest discomfort and shortness of breath. He required PTCA of the left anterior descending artery. The patient is being treated for obstructive sleep apnea associated with obesity. The patient has chronic kidney disease stage III. Due to chronic disease as well as epistaxis the patient has anemia. The patient is receiving transfusion of packed red blood cells presently to improve his coronary symptoms. The patient also has diabetic foot infection on the left-hand side. He is receiving further antibiotics and Dr. Vieira is evaluating the foot. The patient has peripheral vascular disease due to his diabetes which limits blood flow to the wound area. The patient is feeling stronger and wishes to ambulate and regain his finger this evening. Exam - Constitutional Vitals: Period Temp Pulse Resp BP Sys/Diaz Pulse Ox Last 24 Hr 97.2 F-98.1 F 65-80 14-20 118-164/60-79 95-100 Exam: Constitutional System: Minimal distress. No tremulousness. The patient is alert Head: Normocephalic, atraumatic. Ears, Nose and Throat System: No evidence of Otitis or Mastoiditis. No epistaxis or discharge Eyes System: Pupils equal, round, and reactive. Extraocular muscles intact. Neck: Supple, without adenopathy, No jugular venous distention. No thyromegaly , neck mass, or prior surgery apparent. Respiratory System: Chest clear to auscultation. Lung volumes are smaller than optimal Cardiovascular System: Heart with regular rate and rhythm. No murmur. GI System: Abdomen soft, nontender. Normo active bowel sounds present. Musculoskeletal System: limbs with no pedal edema. Full distal pulses. Neurological System: No discernable sensory deficit. No aphasia Psychiatric System: Conversation is rational Results - Labs CBC & BMP: 07/16/17 09:38 05/11/17 03:48 Lab Results: I have reviewed the past 24 hour labs Quality Measures - VTE Contraindication to Pharmacological VTE Prophylaxis: High Risk of Bleeding Specialty Discharge - Follow Up or Referrals Follow up with: Michael Gregory MD [Physician] - 2 Weeks (Follow up with Dr. Gregory in 2 weeks for groin check. ) Michael Vaca MD [Physician] - 2 Weeks (Follow up with Dr. Vaca at [place] in 2 weeks (please make sure appointment is scheduled). Please send copy of abdominal CT report and film with patient to review with Dr. Vaca. )
[2017-05-11] MEDS: PRAVASTATIN 40 MG TABLET PO SCH (21:17)
[2017-05-12] MEDS: PIPERACILLIN/TAZOBACTAM 3,375 MG in SODIUM CHLORIDE 0.9% 100 ML IV SCH ×4 (00:15→21:06)
[2017-05-12 05:59] LABS: Basophils # 0.1 10*3/uL (0.0-0.2); Basophils % 0.9 % (0.0-0.8); Eosinophils # 0.2 10*3/uL (0.0-0.87); Eosinophils % 2.7 % (0.00-10.9); Hematocrit 29.4 VOL% (42.0-52.0); Hemoglobin 9.5 GM/DL (14.0-18.0); Immature Granulocytes % 0.4 %; Immature Granulocytes Absolute 0.03 #; Lymphocytes # 1.5 10*3/uL (1.4-4.0); Lymphocytes % 22.4 % (21.2-54.2); Mean Corpuscular HGB Conc 32.3 GM/DL (32-36); Mean Corpuscular Hemoglobin 30 PG (27-34); Mean Platelet Volume 11.1 FL (9.6-12.0); Monocytes # 0.8 10*3/uL (0.11-0.8); Monocytes % 11.8 % (1.7-12.7); Neutrophils # 4.2 10*3/uL (1.4-7.4); Neutrophils % 61.8 % (38.7-73.9); Platelet Count 120 T/CUMM (130-400); Red Blood Count 3.16 MC/CUMM (3.8-5.5); Red Cell Distribution Width 12.6 % (9.3-17.3); White Blood Count 6.7 T/CUMM (4-12)
[2017-05-12 06:32] LABS: Calcium 8.8 MG/DL (8.5-10.1); Potassium 3.8 MMOL/L (3.5-5.1)
--- NOTE | 2017-05-12 08:44 | Nephrology Progress Note ---
Nephrology - PN: Subj Interval history: Patient denies shortness of breath. Review of systems GI he complains of some pain in his back area he thinks is related to reflux or gas. Physical exam general the patient's in no acute distress, he has no pitting edema Assessment/plan 1. Renal failure-this patient's creatinine is improved to 2 mg/ dL, he seems to have undergone the cardiac cath with out any adverse effects to his kidneys 2. Diabetes mellitus 3. Hypertension 4. Coronary artery disease-patient status post stenting From a renal standpoint is okay for patient to be discharged at any point. I will be happy to see in follow-up for his kidney disease upon discharge. Exam (PN)-Nephrology - Vital Signs Vital signs: Period Temp Pulse Resp BP Sys/Diaz Pulse Ox Last 24 Hr 97.2 F-99.3 F 65-82 16-20 125-191/60-97 95-100 - Lab 05/12/17 05:21 05/12/17 05:21 Most recent lab results Calcium 8.8 MG/DL (8.5-10.1) 05/12/17 05:21 Magnesium 2.5 MG/DL (1.8-2.4) H 05/11/17 03:48 Assessment and Plan (1) Renal failure, unspecified Status: Acute Assessment and plan: It sounds like this patient had normal renal function about 2 months ago but then was admitted to the hospital with a gangrenous toe and received some antibiotics that resulted in some acute renal injury his creatinine increasing to around 3 mg/dL. It sounds as if his kidney function did not fully recover and returns today with a creatinine of 2.8 mg/dL. I agree with giving him IV fluids for renal protection from contrast am also going to add Mucomyst and will hold his diuretic and GARRICK inhibitor for the next 2 days. Current Visit: Yes (2) Coronary artery disease Status: Chronic Assessment and plan: Patient status post stent placement today Current Visit: Yes (3) Chest pain Status: Acute Current Visit: Yes (4) Diabetes mellitus Status: Acute Current Visit: Yes (5) Syncope Status: Resolved Current Visit: Yes (6) Anemia Status: Chronic Assessment and plan: Patient's hematocrit is 28% Current Visit: Yes (7) Former tobacco use Status: Chronic Current Visit: Yes (8) Hypertension Status: Chronic Current Visit: Yes (9) Obesity Status: Chronic Current Visit: Yes (10) Peripheral vascular disease Status: Chronic Assessment and plan: Patient has a left toe wound he has been getting antibiotics for this, I am going to ask the wound care team to see him. Current Visit: Yes Specialty Discharge - Follow Up or Referrals Follow up with: Michael Gregory MD [Physician] - 2 Weeks (Follow up with Dr. Gregory in 2 weeks for groin check. ) Michael Vaca MD [Physician] - 2 Weeks (Follow up with Dr. Vaca at [place] in 2 weeks (please make sure appointment is scheduled). Please send copy of abdominal CT report and film with patient to review with Dr. Vaca. )
[2017-05-12] MEDS: PANTOPRAZOLE 40 MG TABLET PO SCH (09:34)
[2017-05-12] MEDS: CLOPIDOGREL 75 MG TABLET PO SCH (09:34)
[2017-05-12] MEDS: ASPIRIN EC 81 MG TABLET PO SCH (09:34)
[2017-05-12] MEDS: ISOSORBIDE MONONITRATE 30 MG TABLET PO SCH (09:34)
[2017-05-12] MEDS: LISINOPRIL/HCTZ 20-12.5 MG TABLET PO SCH (09:35)
[2017-05-12] MEDS: GABAPENTIN 300 MG CAPSULE PO SCH ×3 (09:35→21:07)
[2017-05-12] MEDS: METOPROLOL TARTRATE 25 MG TABLET PO SCH ×2 (09:35→21:07)
[2017-05-12] MEDS: INSULIN GLARGINE 100 UNIT/ML SUBCUT SCH ×2 (09:35→17:58)
[2017-05-12] MEDS: amLODIPine 10 MG TABLET PO SCH (09:35)
--- NOTE | 2017-05-12 10:18 | Hospitalist Progress Note ---
<Li Willingham - Last Filed: 05/12/17 10:15> Assessment and Plan (1) Osteomyelitis Status: Acute Assessment and plan: Pt. receiving IV antibiotics. Infectious disease has been consulted to evaluate. Awaiting recommendations. Will probably order PICC for outpatient antibiotic therapy. Current Visit: Yes (2) Coronary artery disease Status: Chronic Assessment and plan: Pt is s/p PTCA. Cardiology is following. Pt. denies any complaints. Current Visit: Yes (3) Chronic kidney disease, stage 3 (moderate) Status: Chronic Assessment and plan: Pt's creatinine is 2 today which has improved. Nephrology is following and has signed off today. Pt. is to follow up with nephrology on an outpatient basis. Pt. receiving hydration for renal protection s/p use of contrast. Diuretic and lakisha inhibitor will be held for next 2 days. Current Visit: Yes (4) Dyslipidemia Status: Chronic Assessment and plan: Continue current plan of care with statins. Current Visit: Yes (5) Hypertension Status: Chronic Assessment and plan: Pt's blood pressure is stable. Continue regimen. Current Visit: Yes (6) Obesity Status: Chronic Current Visit: Yes (7) Peripheral vascular disease Status: Chronic Assessment and plan: Pt. had surgery on 03/26 for blood flow issues. Current Visit: Yes (8) Syncope Status: Resolved Current Visit: Yes Hospitalist: Subjective Interval history: Pt. alert and oriented this am. No complaints noted. IV antibiotic (Zosyn) infusing during visit. Infection noted to left foot toe. Dr. Alexandra from [place] has been consulted to evaluate patient. Nephrology and cardiology following patient. Pt. states he feels better today. We will continue to monitor. Exam - Constitutional Vitals: Period Temp Pulse Resp BP Sys/Diaz Pulse Ox Last 24 Hr 97.2 F-99.3 F 65-82 16-20 125-191/60-97 95-100 Results - Labs CBC & BMP: 05/12/17 05:21 05/12/17 05:21 Lab Results: I have reviewed the past 24 hour labs Quality Measures - VTE Contraindication to Pharmacological VTE Prophylaxis: High Risk of Bleeding Specialty Discharge - Follow Up or Referrals Follow up with: Michael Gregory MD [Physician] - 2 Weeks (Follow up with Dr. Gregory in 2 weeks for groin check. ) Michael Vaca MD [Physician] - 2 Weeks (Follow up with Dr. Vaca at [place] in 2 weeks (please make sure appointment is scheduled). Please send copy of abdominal CT report and film with patient to review with Dr. Vaca. ) <Madelin Ferguson - Last Filed: 05/12/17 16:38> Assessment and Plan (1) Osteomyelitis Status: Acute Assessment and plan: cont zosyn for now, will need 6 weeks of IV abx Current Visit: Yes (2) Anemia Status: Acute Assessment and plan: chronic and stable, protonix Current Visit: Yes (3) Chronic kidney disease, stage 3 (moderate) Status: Chronic Assessment and plan: agree with above, hold lakisha and diuretic Current Visit: Yes (4) Diabetes mellitus Status: Chronic Assessment and plan: bs too low this morning, decrease insulin lantus to 40 units daily and 30 units at bedtime Current Visit: Yes (5) Hypertension Status: Chronic Assessment and plan: hold lakisha, cont metoprolol and norvasc Current Visit: Yes Hospitalist: Subjective Interval history: Dr Alexandra has recommended 6 weeks of IV abx so we will have a picc placed in am , She will select which abx later Exam - Constitutional Vitals: Period Temp Pulse Resp BP Sys/Diaz Pulse Ox Last 24 Hr 97.5 F-99.3 F 66-82 16-20 137-191/70-97 94-100 Exam: Heart Rate-[RRR] Lungs-[CTAB] GI-[+bs soft, NT] Ext-[swelling of his 5th toe on left, pulses intact Neuro [Motor 5/5], [alert and oriented times 3] psych [normal mood and affect] General [no acute distress] Results - Labs CBC & BMP: 05/12/17 05:21 05/12/17 05:21 Labs: no cultures - Diagnostic Findings Procedure: Ultrasound: report reviewed by me (carotid us less than 50% stenosis ), X-ray: report reviewed by me (acute osteomyelitis )
--- NOTE | 2017-05-12 12:38 | Infectious Disease Consult ---
Assessment and Plan (1) Osteomyelitis Status: Acute Assessment and plan: Possibly polymicrobial infection, not sure at this time. Recommendations: I am going to try to look at the cultures from when the patient was in [facility] 2 months ago and depending on those I will continue the antibiotics accordingly. For now continue Zosyn. Informed patient that treatment of osteomyelitis of 6 weeks of antibiotics. Thank you very much for the consult. Will follow. Current Visit: Yes (2) Chronic kidney disease, stage 3 (moderate) Status: Chronic Current Visit: Yes (3) Coronary artery disease Status: Chronic Current Visit: Yes Qualifiers: Coronary Disease-Associated Artery/Lesion type: [place] artery [place] vs. transplanted heart: [place] heart (4) Diabetes mellitus Status: Chronic Assessment and plan: Controlled per patient. Can see what A1c is here. Current Visit: Yes (5) Dyslipidemia Status: Chronic Current Visit: Yes (6) Hypertension Status: Chronic Current Visit: Yes (7) Peripheral vascular disease Status: Chronic Current Visit: Yes History of Present Illness Chief complaint: Osteomyelitis left foot History of present illness: Mr. Willard is a 57 year old male with multiple, was including diabetes, hypertension, coronary artery disease developed acute onset swelling of the left fifth toe about 2 months ago. He was told that he had infection with gangrene. He underwent arterial bypass surgery that left leg and says that the appearance of the foot got better. He was treated with antibiotics while he was in the hospital, that is [facility]. When he went home he did not go on any antibiotics. Total never got back to normal. He presented to this hospital because of chest pain and was diagnosed with an STEMI. He mentioned the situation with the toe and an x-ray done showed changes consistent with osteomyelitis of the left fifth distal metatarsal bone. I am asked to assist with management. Patient has not had any fever or other constitutional symptoms. Home Medications Medication Instructions Recorded Confirmed Type Aspirin [Lo-Dose Aspirin EC] 81 mg PO 0900 03/13/17 05/07/17 History Insulin Glargine,Hum.rec.anlog 0 - 75 units SUBCUT BID 03/13/17 05/07/17 History [Lantus SoloStar] Lisinopril/Hydrochlorothiazide 1 each PO BID 03/13/17 05/07/17 History [Lisinopril-Hctz 20-12.5 mg Tab] Metformin HCl [Metformin HCl ER] 1,000 mg PO BID 03/13/17 05/07/17 History Pravastatin [Pravachol] 40 mg PO BEDTIME 03/13/17 05/07/17 History amLODIPine [Norvasc] 5 mg PO 0900 03/13/17 05/07/17 History Ciprofloxacin Tab [Cipro Tab] 500 mg PO BID 05/07/17 05/07/17 History Clopidogrel [Plavix] 75 mg PO 0900 05/07/17 05/07/17 History Gabapentin Cap/Tab [Neurontin 300 mg PO TID 05/07/17 05/07/17 History Cap/Tab] Isosorbide Mononitrate [Isosorbide 30 mg PO QAM 05/07/17 05/07/17 History Mononitrate ER] Allergies Allergy/AdvReac Type Severity Reaction Status Date / Time No Known Allergies Allergy Verified 03/13/17 17:42 12 point system: reviewed and no additional remarkable complaints except as stated (Per HPI) Medical,Surgical,& Family Hx - Medical History Cardio: History of: Hypertension, PVD Neurology: History of: Cerebrovascular Accident (2004), Peripheral Neuropathy No history of: Seizures Endocrine: History of: Diabetes Mellitus (IDDM), Dyslipidemia Respiratory: History of: Obstructive Sleep Apnea (cpap) - Surgical History Cardiac Surgeries: Patient Denies: Cardiac Catheterization - Family History Family History: Reports;: Family Cancer, Family Heart Disease, Family Hypertension - Social History Smoking Status: Former smoker (quit in 2005) Frequency of Alcohol Use: None Type of Drug Use: None Infectious Disease Exam H&P - Constitutional Vitals: Vital Signs Temp Pulse Resp BP Pulse Ox 97.8 F 66 18 150/73 94 L 05/12/17 11:54 05/12/17 11:54 05/12/17 11:54 05/12/17 11:54 05/12/17 11:54 Intake and Output 05/11/17 05/12/17 05/12/17 23:59 07:59 15:59 Intake Total 940 / 940 100 / 100 Balance 940 / 940 100 / 100 Intake: IV 100 / 100 100 / 100 Zosyn 3,375 mg In Ns 100 100 / 100 100 / 100 ml @ 25 mls/hr IV Q8H [facility] Rx#:[id number] Oral 490 / 490 0 / 0 Blood Product 350 / 350 Red Blood Cells Leuko Red 350 / 350 Unit [id number] Other: # Voids 2 1 # Bowel Movements 1 1 Weight 125.362 kg Patient Weight 05/12/17 23:59 Weight 125.362 kg Exam: General: Patient comfortable, sitting in chair HEENT: Mucous membranes pink and moist, anicteric acyanotic, [place], no oropharyngeal exudates Neck: Supple, no thyroid gland enlargement Respiratory system: Breath sounds vesicular, no crepitations or wheezes Cardiovascular: Normal S1 and S2, no murmurs appreciated Abdomen: Normal bowel sounds, soft nontender throughout, no organomegaly or mass Genitourinary: No suprapubic pain or bladder distention Extremities: Significant findings confined to left lower extremity, healed surgical scar from bypass surgery to right leg medially. Left fifth toe noted a little swollen but not hyperemic no drainage. Not tender to touch. Skin: No rash Reports - Labs CBC & BMP: 05/12/17 05:21 05/12/17 05:21 Labs: Laboratory Results - last 24 hr 05/11/17 05/11/17 05/11/17 09:38 09:44 15:55 WBC RBC Hgb Hct MCV MCH MCHC RDW Plt Count MPV Neut % (Auto) Lymph % (Auto) [place] % (Auto) Eos % (Auto) Baso % (Auto) Neut # (Auto) Lymph # (Auto) [place] # (Auto) Eos # (Auto) Baso # (Auto) Immature Gran % Nucleated RBC % Immature Gran # Nucleated RBCs # Morphology Comment Peripheral Blood Smear Not Reportable Peripher Smr Path Cons Sodium Potassium Chloride Carbon Dioxide Anion Gap BUN Creatinine GFR Calculation BUN/Creatinine Ratio Glucose POC Glucose 174 H Calculated Osmolality Calcium Blood Type A POSITIVE Antibody Screen Negative Crossmatch See Detail 05/11/17 05/12/17 05/12/17 20:55 05:21 05:21 WBC 6.7 RBC 3.16 L Hgb 9.5 L Hct 29.4 L MCV 93.0 MCH 30 MCHC 32.3 RDW 12.6 Plt Count 120 L MPV 11.1 Neut % (Auto) 61.8 Lymph % (Auto) 22.4 [place] % (Auto) 11.8 Eos % (Auto) 2.7 Baso % (Auto) 0.9 H Neut # (Auto) 4.2 Lymph # (Auto) 1.5 [place] # (Auto) 0.8 Eos # (Auto) 0.2 Baso # (Auto) 0.1 Immature Gran % 0.4 Nucleated RBC % 0.0 Immature Gran # 0.03 Nucleated RBCs # 0.00 Morphology Comment Peripheral Blood Smear Peripher Smr Path Cons Sodium 143 Potassium 3.8 Chloride 108 H Carbon Dioxide 27 Anion Gap 11.8 BUN 16 Creatinine 2.00 H GFR Calculation 58 BUN/Creatinine Ratio 8.00 Glucose 63 L POC Glucose 213 H Calculated Osmolality 283.0 Calcium 8.8 Blood Type Antibody Screen Crossmatch 05/12/17 05/12/17 05/12/17 07:34 09:30 11:33 WBC RBC Hgb Hct MCV MCH MCHC RDW Plt Count MPV Neut % (Auto) Lymph % (Auto) [place] % (Auto) Eos % (Auto) Baso % (Auto) Neut # (Auto) Lymph # (Auto) [place] # (Auto) Eos # (Auto) Baso # (Auto) Immature Gran % Nucleated RBC % Immature Gran # Nucleated RBCs # Morphology Comment Peripheral Blood Smear Peripher Smr Path Cons Sodium Potassium Chloride Carbon Dioxide Anion Gap BUN Creatinine GFR Calculation BUN/Creatinine Ratio Glucose POC Glucose 55 L 201 H 154 H Calculated Osmolality Calcium Blood Type Antibody Screen Crossmatch - Reports Microbiology: Microbiology 05/10/17 07:30 Stool Occult Blood (SY) - Final Stool Negative for Occult Blood - Diagnostic Findings Procedure: X-ray: image reviewed by me, report reviewed by me (Osteomyelitis of left fifth distal metatarsal bone) Specialty Discharge - Follow Up or Referrals Follow up with: Michael Gregory MD [Physician] - 2 Weeks (Follow up with Dr. Gregory in 2 weeks for groin check. ) Michael Vaca MD [Physician] - 2 Weeks (Follow up with Dr. Vaca at [place] in 2 weeks (please make sure appointment is scheduled). Please send copy of abdominal CT report and film with patient to review with Dr. Vaca. )
--- NOTE | 2017-05-12 14:48 | Cardiology Progress Note ---
I, Margot Barry RN, am scribing for, and in the presence of, Luis E Lorenz MD 14:47. Assessment and Plan (1) Chest pain Status: Resolved Assessment and plan: I have interviewed and examined Mr. Willard. I agree with note above and would add the followin. 57-year-old doing well from a cardiac standpoint status post LAD stenting last week currently on dual antiplatelet therapy 2. Significant drop in hematocrit requiring 2 units of packed red blood cells with hematocrit improving from 23.5% to 29.4 today. He has no overt GI bleed or source of blood loss that is apparent. Continue dual antiplatelet therapy for now and check morning hematocrit. 3. PAD status post apparent left femoropopliteal February [address] [facility] [address] Garcia; he has a palpable DP pulse on the left. He has right distal common iliac occlusion with moderate right lower extremity claudication. 4. Creatinine is slightly improved to 2.0 5. Reported "gangrene" in left small toe having received IV antibiotics daily at [place] for some weeks. ID is evaluating here. 6. Follow-up with Dr. Gregory in 1-2 weeks time 7. I will plan to check him in the morning, and if his hematocrit is stable sign off. Current Visit: Yes (2) Diabetes mellitus Status: Chronic Current Visit: Yes (3) Anemia Status: Acute Current Visit: Yes (4) Chronic kidney disease, stage 3 (moderate) Status: Chronic Current Visit: Yes (5) Coronary artery disease Status: Chronic Current Visit: Yes Qualifiers: Coronary Disease-Associated Artery/Lesion type: [place] artery [place] vs. 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 Velázquez, switching to Dr. Vaca at [place] SUMMARY: Mr. Willard is a 57 year old male with a history of hypertension, DVTs, dyslipidemia, peripheral vascular disease, and chronic kidney disease stage III who was transferred to our facility from [facility] for further evaluation of chest pain and a syncopal episode. He was noted to have an elevated troponin and EKG with ST-T abnormality. He previously had a negative cardiac workup in February 2017 at [facility] including echo and cardiac perfusion study. Since that time he has had recurrent chest pains and now presents with elevated troponin. Nephrology was consulted due to his elevated creatinine, BUN, and decreased GFR posing an increased risk for receiving contrast. He was given Mucomyst and placed on a bicarbonate infusion. He was taken to [facility] May 08 for left and right heart catheterization. He received proximal LAD stent for 90% stenosis with good results. He was noted to have an ejection fraction of 55-60%. His right-sided pressures were overall fairly unremarkable. May 12, 2017: Mr. Willard is seen resting in bed no acute distress. He states he has had no chest pain since his heart catheterization last week. He denies any shortness of breath, palpitations, or dizziness. He received 2 units of blood yesterday, H&H is improved today 9.5 and 29.4. Stool was negative for occult blood. Creatinine is slightly improved today at 2.0. 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 Exam (Progress Note) - Constitutional Vitals: Period Temp Pulse Resp BP Sys/Diaz Pulse Ox Last 24 Hr 97.2 F-99.3 F 65-82 16-20 125-191/60-97 95-100 General appearance: no acute distress, morbidly obese - Head Head exam: Absent: abrasion, hematoma - Eye Eye exam: Absent: periorbital swelling, laceration to eyelids - Respiratory Respiratory exam: Present: clear to auscultation bilaterally. Absent: accessory muscle use, chest wall tenderness - Cardiovascular Cardiovascular exam: Present: regular rate and rhythm. Absent: rubs - GI/Abdominal GI/Abdominal exam: Present: normal bowel sounds, soft. Absent: distended, tenderness - Extremities Exam Extremities exam: Present: other (2+ pulses to upper and lower bilateral extremities). Absent: edema - Neurological Exam Neurological exam: Present: alert, oriented X3 - Psychiatric Psychiatric exam: Present: normal affect, normal mood - Skin Skin exam: Present: warm, dry Result/EKG - Labs CBC & BMP: 05/12/17 05:21 05/12/17 05:21 Lab Results: I have reviewed the past 24 hour labs Labs: Laboratory Results - last 24 hr 05/11/17 05/11/17 05/11/17 09:38 09:44 12:00 WBC RBC Hgb Hct MCV MCH MCHC RDW Plt Count MPV Neut % (Auto) Lymph % (Auto) [place] % (Auto) Eos % (Auto) Baso % (Auto) Neut # (Auto) Lymph # (Auto) [place] # (Auto) Eos # (Auto) Baso # (Auto) Total Counted 100 Immature Gran % Nucleated RBC % Immature Gran # Segmented Neutrophils 67 Band Neutrophils 2 Lymphocytes 23 Monocytes 8 Nucleated RBCs # Platelet Estimate Adequate Hypochromasia 1+ Morphology Comment Peripheral Blood Smear Not Reportable Peripher Smr Path Cons Sodium Potassium Chloride Carbon Dioxide Anion Gap BUN Creatinine GFR Calculation BUN/Creatinine Ratio Glucose POC Glucose 158 H Calculated Osmolality Calcium Blood Type A POSITIVE Antibody Screen Negative Crossmatch See Detail 05/11/17 05/11/17 05/12/17 15:55 20:55 05:21 WBC 6.7 RBC 3.16 L Hgb 9.5 L Hct 29.4 L MCV 93.0 MCH 30 MCHC 32.3 RDW 12.6 Plt Count 120 L MPV 11.1 Neut % (Auto) 61.8 Lymph % (Auto) 22.4 [place] % (Auto) 11.8 Eos % (Auto) 2.7 Baso % (Auto) 0.9 H Neut # (Auto) 4.2 Lymph # (Auto) 1.5 [place] # (Auto) 0.8 Eos # (Auto) 0.2 Baso # (Auto) 0.1 Total Counted Immature Gran % 0.4 Nucleated RBC % 0.0 Immature Gran # 0.03 Segmented Neutrophils Band Neutrophils Lymphocytes Monocytes Nucleated RBCs # 0.00 Platelet Estimate Hypochromasia Morphology Comment Peripheral Blood Smear Peripher Smr Path Cons Sodium Potassium Chloride Carbon Dioxide Anion Gap BUN Creatinine GFR Calculation BUN/Creatinine Ratio Glucose POC Glucose 174 H 213 H Calculated Osmolality Calcium Blood Type Antibody Screen Crossmatch 05/12/17 05/12/17 05/12/17 05:21 07:34 09:30 WBC RBC Hgb Hct MCV MCH MCHC RDW Plt Count MPV Neut % (Auto) Lymph % (Auto) [place] % (Auto) Eos % (Auto) Baso % (Auto) Neut # (Auto) Lymph # (Auto) [place] # (Auto) Eos # (Auto) Baso # (Auto) Total Counted Immature Gran % Nucleated RBC % Immature Gran # Segmented Neutrophils Band Neutrophils Lymphocytes Monocytes Nucleated RBCs # Platelet Estimate Hypochromasia Morphology Comment Peripheral Blood Smear Peripher Smr Path Cons Sodium 143 Potassium 3.8 Chloride 108 H Carbon Dioxide 27 Anion Gap 11.8 BUN 16 Creatinine 2.00 H GFR Calculation 58 BUN/Creatinine Ratio 8.00 Glucose 63 L POC Glucose 55 L 201 H Calculated Osmolality 283.0 Calcium 8.8 Blood Type Antibody Screen Crossmatch - EKG EKG results: interpreted by me EKG shows: sinus rhythm Quality Measures - VTE Contraindication to Pharmacological VTE Prophylaxis: High Risk of Bleeding Specialty Discharge - Follow Up or Referrals Follow up with: Michael Gregory MD [Physician] - 2 Weeks (Follow up with Dr. Gregory in 2 weeks for groin check. ) Michael Vaca MD [Physician] - 2 Weeks (Follow up with Dr. Vaca at [place] in 2 weeks (please make sure appointment is scheduled). Please send copy of abdominal CT report and film with patient to review with Dr. Vaca. ) Gerda Mcwilliams Randall Scott, MD, personally performed the services described in this documentation, ascribed by Margot Barry RN in my presence, and it is both accurate and complete [id number] .
--- NOTE | 2017-05-12 16:26 | Hospitalist Progress Note ---
Exam - Constitutional Vitals: Period Temp Pulse Resp BP Sys/Diaz Pulse Ox Last 24 Hr 97.5 F-99.3 F 66-82 16-20 137-191/70-97 94-100 Results - Labs CBC & BMP: 05/12/17 05:21 05/12/17 05:21 Quality Measures - VTE Contraindication to Pharmacological VTE Prophylaxis: High Risk of Bleeding Specialty Discharge - Follow Up or Referrals Follow up with: Michael Gregory MD [Physician] - 2 Weeks (Follow up with Dr. Gregory in 2 weeks for groin check. ) Michael Vaca MD [Physician] - 2 Weeks (Follow up with Dr. Vaca at [place] in 2 weeks (please make sure appointment is scheduled). Please send copy of abdominal CT report and film with patient to review with Dr. Vaca. )
[2017-05-12] MEDS ORDERED: INSULIN GLARGINE 100 UNIT/ML SUBCUT SCH (21:00)
[2017-05-12] MEDS: PRAVASTATIN 40 MG TABLET PO SCH (21:07)
[2017-05-13 05:45] LABS: Basophils # 0.1 10*3/uL (0.0-0.2); Basophils % 0.8 % (0.0-0.8); Eosinophils # 0.2 10*3/uL (0.0-0.87); Eosinophils % 2.4 % (0.00-10.9); Hematocrit 29.7 VOL% (42.0-52.0); Hemoglobin 9.4 GM/DL (14.0-18.0); Immature Granulocytes % 1.1 %; Immature Granulocytes Absolute 0.08 #; Lymphocytes # 1.4 10*3/uL (1.4-4.0); Lymphocytes % 19.4 % (21.2-54.2); Mean Corpuscular HGB Conc 31.6 GM/DL (32-36); Mean Corpuscular Hemoglobin 31 PG (27-34); Mean Corpuscular Volume 96.7 FL (87-102); Mean Platelet Volume 11.2 FL (9.6-12.0); Monocytes # 0.7 10*3/uL (0.11-0.8); Monocytes % 9.3 % (1.7-12.7); Platelet Count 116 T/CUMM (130-400); Red Blood Count 3.07 MC/CUMM (3.8-5.5); Red Cell Distribution Width 13.1 % (9.3-17.3); White Blood Count 7.4 T/CUMM (4-12)
[2017-05-13 05:53] LABS: Calcium 8.4 MG/DL (8.5-10.1); Osmolality,Calculated 289.1 MOS/KG (273-304)
[2017-05-13 06:06] LABS: Platelet Estimate Adequate
[2017-05-13] MEDS: PIPERACILLIN/TAZOBACTAM 3,375 MG in SODIUM CHLORIDE 0.9% 100 ML IV SCH (06:11)
--- NOTE | 2017-05-13 07:37 | Nephrology Progress Note ---
Nephrology - PN: Subj Interval history: Patient denies shortness of breath. Review of systems GI denies nausea or vomiting Physical exam general the patient is in no acute distress, he has no pitting edema Assessment/plan 1. Acute renal failure on chronic renal failure-this patient's creatinine is increased around 2.1 mg/dL overall this is stable from the past few days. This may be his new baseline. I will be happy to see the patient in follow-up for his chronic kidney disease at this point. 2. Coronary artery disease-patient status post stent placement 3. Osteomyelitis-patient is on Zosyn antibiotic therapy he is going to require about 6 weeks of IV antibiotics 4. Hypertension management per cardiology Exam (PN)-Nephrology - Vital Signs Vital signs: Period Temp Pulse Resp BP Sys/Diaz Pulse Ox Last 24 Hr 97.6 F-98.6 F 66-76 18-18 137-150/64-97 94-97 - Lab 05/13/17 03:42 05/13/17 03:42 Most recent lab results Calcium 8.4 MG/DL (8.5-10.1) L 05/13/17 03:42 Magnesium 2.5 MG/DL (1.8-2.4) H 05/11/17 03:48 Assessment and Plan (1) Renal failure, unspecified Status: Acute Assessment and plan: It sounds like this patient had normal renal function about 2 months ago but then was admitted to the hospital with a gangrenous toe and received some antibiotics that resulted in some acute renal injury his creatinine increasing to around 3 mg/dL. It sounds as if his kidney function did not fully recover and returns today with a creatinine of 2.8 mg/dL. I agree with giving him IV fluids for renal protection from contrast am also going to add Mucomyst and will hold his diuretic and GARRICK inhibitor for the next 2 days. Current Visit: Yes (2) Coronary artery disease Status: Chronic Assessment and plan: Patient status post stent placement today Current Visit: Yes Qualifiers: Coronary Disease-Associated Artery/Lesion type: [place] artery [place] vs. transplanted heart: [place] heart (3) Chest pain Status: Resolved Current Visit: Yes (4) Diabetes mellitus Status: Chronic Current Visit: Yes (5) Syncope Status: Resolved Current Visit: Yes (6) Anemia Status: Acute Assessment and plan: Patient's hematocrit is 28% Current Visit: Yes (7) Former tobacco use Status: Chronic Current Visit: Yes (8) Hypertension Status: Chronic Current Visit: Yes (9) Obesity Status: Chronic Current Visit: Yes (10) Peripheral vascular disease Status: Chronic Assessment and plan: Patient has a left toe wound he has been getting antibiotics for this, I am going to ask the wound care team to see him. Current Visit: Yes Specialty Discharge - Follow Up or Referrals Follow up with: Michael Gregory MD [Physician] - 2 Weeks (Follow up with Dr. Gregory in 2 weeks for groin check. ) Michael Vaca MD [Physician] - 2 Weeks (Follow up with Dr. Vaca at [place] in 2 weeks (please make sure appointment is scheduled). Please send copy of abdominal CT report and film with patient to review with Dr. Vaca. ) Michael Saini MD [Physician] - 1 Month ()
[2017-05-13] MEDS: ASPIRIN EC 81 MG TABLET PO SCH (08:37)
[2017-05-13] MEDS: CLOPIDOGREL 75 MG TABLET PO SCH (08:37)
[2017-05-13] MEDS: amLODIPine 10 MG TABLET PO SCH (08:37)
[2017-05-13] MEDS: PANTOPRAZOLE 40 MG TABLET PO SCH (08:37)
[2017-05-13] MEDS: METOPROLOL TARTRATE 25 MG TABLET PO SCH (08:37)
[2017-05-13] MEDS: ISOSORBIDE MONONITRATE 30 MG TABLET PO SCH (08:37)
[2017-05-13] MEDS: GABAPENTIN 300 MG CAPSULE PO SCH ×2 (08:37→15:16)
[2017-05-13] MEDS: INSULIN GLARGINE 100 UNIT/ML SUBCUT SCH (08:38)
--- NOTE | 2017-05-13 09:48 | Infectious Disease Progress ---
Assessment and Plan (1) Osteomyelitis Status: Acute Assessment and plan: Osteomyelitis of left fifth toe, possibly polymicrobial infection, not sure at this time. I reviewed the records from [facility] from February and no cultures were done of the foot. He had blood cultures on March 19 2 sets which were negative. Recommendations: 1. Stop Zosyn 2. Start ertapenem 1 g daily 3. Start daptomycin 6 mg/kg IV DAILY 3. CONSULT [facility] TO ARRANGE OUTPATIENT ANTIBIOTICS 6 WEEKS FOR OSTEOMYELITIS 5. APPOINTMENT TO SEE ME IN THE OFFICE IN 1 WEEK. WE WILL PLAN TO MONITOR LABS WEEKLY WHILE HE IS ON ANTIBIOTIC THERAPY. 6. PATIENT ADVISED THAT THE PRAVACHOL NEEDS TO BE STOPPED FOR THE DURATION OF TIME HE IS ON DAPTOMYCIN DISCUSSED WITH DR. VALENZUELA. Current Visit: Yes (2) Chronic kidney disease, stage 3 (moderate) Status: Chronic Current Visit: Yes (3) Coronary artery disease Status: Chronic Current Visit: Yes Qualifiers: Coronary Disease-Associated Artery/Lesion type: [place] artery [place] vs. transplanted heart: [place] heart (4) Diabetes mellitus Status: Chronic Assessment and plan: Controlled with A1c of 6.4%. Current Visit: Yes (5) Dyslipidemia Status: Chronic Current Visit: Yes (6) Hypertension Status: Chronic Current Visit: Yes (7) Peripheral vascular disease Status: Chronic Current Visit: Yes Infectious Disease - PN: Subj Interval history: Patient doing okay relatively speaking. Complains of some soft stool but 1-2 per day. No abdominal pain no nausea vomiting. Afebrile. Infectious Disease Exam (PN) - Constitutional Vitals: Temp Pulse Resp BP Pulse Ox 97.3 F L 73 18 145/70 100 05/13/17 07:59 05/13/17 07:59 05/13/17 07:59 05/13/17 07:59 05/13/17 07:59 General appearance: no acute distress, morbidly obese Exam: General appearance: no acute distress - Eye Eye exam: Present: EOMI. no icterus Pupils: Present: SAMSON - ENT ENT exam: no oral exudates - Respiratory Respiratory exam: vesicular BS, no crepitations or wheezes - Cardiovascular Cardiovascular exam: regular rate and rhythm, no murmurs - GI/Abdominal GI/Abdominal exam: normal bowel sounds, soft, non-tender, no organomegaly or mass - Extremities Exam Extremities exam: no edema, mild swelling and irregularity of left fifth toe - Skin Skin exam: no rash Results - Labs CBC & BMP: 05/13/17 03:42 05/13/17 03:42 Lab Results: I have reviewed the past 24 hour labs Quality Measures - VTE Contraindication to Pharmacological VTE Prophylaxis: High Risk of Bleeding Specialty Discharge - Follow Up or Referrals Follow up with: Michael Saini MD [Physician] - 1 Month () Michael Gregory MD [Physician] - 2 Weeks (Follow up with Dr. Gregory in 2 weeks for groin check. ) Michael Vaca MD [Physician] - 2 Weeks (Follow up with Dr. Vaca at [place] in 2 weeks (please make sure appointment is scheduled). Please send copy of abdominal CT report and film with patient to review with Dr. Vaca. )
--- NOTE | 2017-05-13 10:23 | Discharge Summary ---
<Carmelo Shaw - Last Filed: 05/13/17 09:47> Hospital Course - Hospital Course Hospital Course: Mr. Willard is a 57 year old -Taj[place] male who presented to the [place] ED on 05/07/2017 as a transfer from [facility] for further evaluation of chest pain and syncopal episode. He is status post left leg arterial bypass surgery per Dr. Valente Garcia on 03/26/2017 and was noted to have an EF estimated at 65%. At [facility], his troponins were elevated at 0.292. On arrival at [facility], his troponin was 0.809 with serial troponins reading 1.28, 1.37 , and 1.27. She was admitted to the hospital medicine service for further evaluation and treatment with cardiology consultation. Upon cardiology consultation, he was immediately prepped for a and [facility] with the possibility of PCI on 05/08/[address] Gregory. Findings of the catheterization were as follows: 1. Left ventricle is normal size with ejection fraction 55 60%. 2. The LVEDP is at least mild elevated at 24 mmHg. 3. Right-sided pressures overall are fairly unremarkable with only mildly increased systolic pressures in the RV and PA with a mildly increased RV EDP. 4. The wedge pressure is mildly increased with a mean of 23. 5. There is no significant mitral valve regurgitation noted. 6. The aortic valve appeared to be a tricuspid structure without any significant gradient noted. 7. RCA is large and dominant. It has worsened mid stenosis of 30-40% with luminal irregularities distally. 8. Left main coronary artery may have some stenosis up to 30% to be eccentric. Some of this that we see may be spasm in catheter induced. He is not hemodynamically significant. 9. Circumflex artery is nondominant widely patent with it worse and minimal luminal irregularities. 10. LAD with high-grade proximal stenosis ranging from 80-90% stenosis and LORENZO II flow. 11. Successful stent placement of the proximal LAD as described above with the 89% stenosis and LORENZO II flow dilated 0% residual stenosis with LORENZO-3 flow. 12. Successful hemostasis of the right radial artery at the wrist. Post catheterization, the patient did experience some renal failure with his creatinine 2.8 mg/dL. He was given IV fluids and his diuretic and GARRICK inhibitor were held. At the time of discharge, the patient's creatinine had decreased to 2.10 mg/dL. XR of the foot on 05/09/2017 revealed findings suspicious for active osteomyelitis of the distal phalanx of the left fifth toe and associated cellulitis. He was started on Zosyn and continued to improve. Infectious disease is following and has suggested continuation of antibiotics at home for 6 weeks with PICC line placement. He will be started on ertapenem 1 g daily along with daptomycin 6 mg/kg IV daily. He should follow up with Dr. Dawit Montilla in 1 week. At this time, he has reached maximum benefit from hospitalization and is stable for discharge home once PICC line has been placed. He has been instructed to follow up with Dr. Gregory in 1 week for groin check and with Dr. Vaca at [place] in [address] Valente Garcia in one week. - Time spent with patient Time with patient DS: Greater than 30 minutes Time spent discussing smoking cessation with patient: 3 to 10 minutes Specialty Discharge - Follow Up or Referrals Follow up with: Amaris Moore MD [Physician] - 1 Week Michael Saini MD [Physician] - 1 Month () Michael Gregory MD [Physician] - 2 Weeks (Follow up with Dr. Gregory in 2 weeks for groin check. ) Michael Vaca MD [Physician] - 2 Weeks (Follow up with Dr. Vaca at [place] in 2 weeks (please make sure appointment is scheduled). Please send copy of abdominal CT report and film with patient to review with Dr. Vaca. ) Discharge Plan - Discharge Data Disposition: Home Health Service - Discharge Medications New DAPTOmycin [Cubicin] 750 mg IV Q24H 42 Days Insulin Glargine [Lantus] 20 unit SUBCUT BEDTIME #100 ml Metoprolol Tartrate Tab [Lopressor Tab] 25 mg PO BID #60 tablet Atorvastatin [Lipitor] 80 mg PO BEDTIME #30 tablet Insulin Glargine [Lantus] 40 unit SUBCUT DAILY #100 ml Ertapenem [INVanz] 1,000 mg IV Q24H 42 Days Continue Clopidogrel [Plavix] 75 mg PO 0900 Gabapentin Cap/Tab [Neurontin Cap/Tab] 300 mg PO TID Isosorbide Mononitrate [Isosorbide Mononitrate ER] 30 mg PO QAM Changed amLODIPine [Norvasc] 10 mg PO 0900 #60 tablet Discontinued Metformin HCl [Metformin HCl ER] 1,000 mg PO BID Pravastatin [Pravachol] 40 mg PO BEDTIME Insulin Glargine,Hum.rec.anlog [Lantus SoloStar] 0 - 75 units SUBCUT BID Lisinopril/Hydrochlorothiazide [Lisinopril-Hctz 20-12.5 mg Tab] 1 each PO BID Ciprofloxacin Tab [Cipro Tab] 500 mg PO BID No Action Aspirin [Lo-Dose Aspirin EC] 81 mg PO 0900 - Follow Up or Referral Follow Up: Amaris Moore MD [Physician] - 1 Week Michael Saini MD [Physician] - 1 Month () Michael Gregory MD [Physician] - 2 Weeks (Follow up with Dr. Gregory in 2 weeks for groin check. ) Michael Vaca MD [Physician] - 2 Weeks (Follow up with Dr. Vaca at [place] in 2 weeks (please make sure appointment is scheduled). Please send copy of abdominal CT report and film with patient to review with Dr. Vaca. ) - Forms/Instructions Instructions: Left Heart Catheterization (DC), Heart Healthy Diet (GEN), Coronary Intravascular Stent Placement (DC) Exam - Constitutional Vitals: Period Temp Pulse Resp BP Sys/Diaz Pulse Ox Last 24 Hr 97.3 F-98.6 F 66-76 18-18 141-150/64-77 94-100 Discharge Results Procedures and tests throughout hospitalization: Pending Orders 05/10/17 07:30 Occult Blood, Stool Routine 05/11/17 09:44 Transferrin Routine 05/13/17 guide vascular access Routine 05/13/17 04:00 IR PICC line insertion IN AM Labs on day of discharge: Labs from last 24 hours 05/13/17 05/13/17 05/13/17 07:38 03:42 03:42 WBC 7.4 RBC 3.07 L Hgb 9.4 L Hct 29.7 L MCV 96.7 MCH 31 MCHC 31.6 L RDW 13.1 Plt Count 116 L MPV 11.2 Neut % (Auto) 67.0 Lymph % (Auto) 19.4 L Milam % (Auto) 9.3 Eos % (Auto) 2.4 Baso % (Auto) 0.8 Neut # (Auto) 5.0 Lymph # (Auto) 1.4 Milam # (Auto) 0.7 Eos # (Auto) 0.2 Baso # (Auto) 0.1 Immature Gran % 1.1 Nucleated RBC % 0.0 Immature Gran # 0.08 Nucleated RBCs # 0.00 Platelet Estimate Adequate Morphology Comment Sodium 142 Potassium 4.0 Chloride 110 H Carbon Dioxide 21 Anion Gap 15.0 BUN 17 Creatinine 2.10 H GFR Calculation 54 BUN/Creatinine Ratio 8.00 Glucose 195 H POC Glucose 231 H Hemoglobin A1c Calculated Osmolality 289.1 Calcium 8.4 L 05/12/17 05/12/17 05/12/17 19:46 16:55 15:47 WBC RBC Hgb Hct MCV MCH MCHC RDW Plt Count MPV Neut % (Auto) Lymph % (Auto) [place] % (Auto) Eos % (Auto) Baso % (Auto) Neut # (Auto) Lymph # (Auto) [place] # (Auto) Eos # (Auto) Baso # (Auto) Immature Gran % Nucleated RBC % Immature Gran # Nucleated RBCs # Platelet Estimate Morphology Comment Sodium Potassium Chloride Carbon Dioxide Anion Gap BUN Creatinine GFR Calculation BUN/Creatinine Ratio Glucose POC Glucose 196 H 287 H Hemoglobin A1c 6.4 H Calculated Osmolality Calcium 05/12/17 11:33 WBC RBC Hgb Hct MCV MCH MCHC RDW Plt Count MPV Neut % (Auto) Lymph % (Auto) [place] % (Auto) Eos % (Auto) Baso % (Auto) Neut # (Auto) Lymph # (Auto) [place] # (Auto) Eos # (Auto) Baso # (Auto) Immature Gran % Nucleated RBC % Immature Gran # Nucleated RBCs # Platelet Estimate Morphology Comment Sodium Potassium Chloride Carbon Dioxide Anion Gap BUN Creatinine GFR Calculation BUN/Creatinine Ratio Glucose POC Glucose 154 H Hemoglobin A1c Calculated Osmolality Calcium DS: Provider Date of admission: 05/07/17 17:30 Primary care physician: Rolando Velázquez MD Attending physician on admission: Rafat Joshua DO Consults: 05/07/17 18:30 Consult to Physician [CONS] Routine Comment: syncope, history of CAD Consulting Provider: Patel Yi Person Notified: Dr. Yi Date Notified: 05/07/17 Time Notified: 18:54 05/08/17 10:23 Consult to Physician [CONS] Routine Comment: creatinine 2.8, will need [facility] Consulting Provider: Michael Saini Consult to Specialist Group: Nephrology Person Notified: [email or web address] Date Notified: 05/08/17 Time Notified: 10:35 05/08/17 14:37 Consult to Cardiac Rehabilitation [CONS] Routine Reason for Cardiac Rehabilitation: Risk Factor Modification 05/08/17 15:57 Consult to Wound Care - North [CONS] Routine Reason for Wound Care: Wound Care Management 05/09/17 10:54 Consult to Physician [CONS] Routine Comment: eval of left 5th toe-indigo has seen pt Consulting Provider: Raymon Edmond Consult to Specialist Group: Surgery Person Notified: [email or web address] Date Notified: 05/09/17 Time Notified: 11:10 05/09/17 13:38 Consult to Pharmacy [CONS] Routine Reason for Pharmacy Consult: Dose/Manage Antibiotics 05/12/17 08:10 Consult to Physician [CONS] Routine Comment: osteomyelitis Consulting Provider: Amaris Moore Consult to Specialist Group: Infectious Disease Person Notified: [email or web address] Date Notified: 05/12/17 Time Notified: 08:40 05/13/17 09:44 Consult to Case Mgmt/Social Srvs [CONS] Routine Reason for Case Mgmt/Social Srvs: Home IV Therapy Consult Comment: Ertapenem 1g and daptomycin 6mg/kg both IV daily 6 weeks Discharging clinician: Carmelo RAMOS Expected date of discharge: 05/13/17 <Madelin Ferguson - Last Filed: 05/13/17 10:44> Hospital Course - Time spent with patient Time with patient DS: Greater than 30 minutes (55 min) Diagnosis - Discharge Diagnosis (1) Osteomyelitis Status: Acute (2) Anemia Status: Acute (3) Chronic kidney disease, stage 3 (moderate) Status: Chronic (4) Diabetes mellitus Status: Chronic (5) Hypertension Status: Chronic Discharge Plan - Discharge Data Condition at Discharge: Stable Discharge Diet: diabetic diet Activity: resume usual activities as tolerated Hygiene: no restrictions Weight Bearing at Discharge: full weight bearing Driving: no restrictions - Forms/Instructions Additional Discharge Instructions: IV antibiotics for 6 week including daptomycin 750 mg IV daily and Invanz 1 g IV daily Exam - Constitutional General appearance: no acute distress, over weight - Respiratory Respiratory exam: Present: clear to auscultation bilaterally. Absent: rhonchi, wheezes - Cardiovascular Cardiovascular exam: Present: regular rate and rhythm. Absent: systolic murmur - GI/Abdominal GI/Abdominal exam: Present: normal bowel sounds, soft. Absent: tenderness - Extremities Exam Extremities exam: Present: normal inspection, normal capillary refill - Neurological Exam Neurological exam: Present: alert, oriented X3
[2017-05-13] MEDS ORDERED: ERTAPENEM 1,000 MG in SODIUM CHLORIDE 0.9% 100 ML IV SCH (11:00)
[2017-05-13 12:12] VITALS: BP 159/71
--- NOTE | 2017-05-13 17:14 | Interventional Radiology Rpt ---
IR PICC line insertion, US guide vascular access IR PICC Placement Peripherally-inserted central catheter (PICC) placement using ultrasound and fluoroscopic guidance Ultrasound of the left upper extremity Clinical Information: 6 weeks IV antibiotics for soft tissue infection. PICC line is requested. Physician: Dr. Viveros Procedure: The patient was advised of the benefits, risks, and alternatives of the procedure and informed consent was obtained. A time out was performed with verification of the patient's name, MRN, site of procedure, and type of procedure to be performed. The patient was positioned in the supine position on the angiographic table. The site was prepped and draped in the usual sterile fashion. Additionally, maximal sterile barrier technique was employed for the procedure. A sifter and miller radiograph reveals no relevant abnormality. Ultrasound examination of the left arm demonstrates patent and compressible brachial and basilic veins. The left arm was prepped and draped in the usual sterile fashion. The left basilic vein was again identified. Using ultrasound guidance, a 21 gauge needle was used to access the vein. A permanent ultrasound recording of vascular access was obtained for the patient's record. A 0.018" cope wire was then advanced into the vein. The needle was exchanged for a 5 [place] peel-away sheath. A 5 [place] double lumen Bard Solo PICC catheter was measured and trimmed to the 53 cm idris. The PICC line was advanced through the sheath and into the central circulation. The catheter tip was positioned at the cavo-atrial junction. The peel-away sheath was then removed. At the conclusion of the procedure, the catheter was secured in place using a Stat-Lock device. A sterile dressing was applied. The lumens aspirate and flush freely. The catheter is ready for immediate use. The patient tolerated the procedure well and was returned to the PRU in stable condition. EBL: < 5 mL. Complications: None. Fluoroscopy time: 0.5 minutes Total number of images for this study: 2 Conclusion: Successful placement of a 5 [place] double lumen Bard Solo power injectable PICC via the left basilic vein. The catheter is ready for immediate use. PROCEDURE INTERPRETED AT [facility] DEPARTMENT OF RADIOLOGY Final Report Signed by: Prasad Viveros
--- NOTE | 2017-05-14 12:21 | Post Interventional Procedure ---
Pre-op diagnosis: soft tissue infection Post-op diagnosis: same Procedure: PICC Placement done 05/13/2017 Contrast: none Flouroscopy: less than 1 min Radiologist: Prasad Viveros Anesthesia: local Specimens: none sent Estimated blood loss: none Complications: none Condition: stable Description/Findings: left arm 5 romanian PICC placement completed and ready to use Assessment and Plan - Time spent with patient Time spent with patient: Less than 30 minutes
== END 2017-05-13 15:25 | disposition home health service (06) | DRG 247 ==
LOC: EDBD → EDUNIT# → N.ED 15:01 → N.EDINP 15:01 → OBSVTOIN 17:30 → SUATTDRO 17:30 → N.TELES 18:15
PROVIDERS: ADMIT Internal Medicine; ATTEND Internal Medicine

== ENCOUNTER 2022-04-17 10:14 | Inpatient (IN) ==
[2022-05-01] MEDS ORDERED: GLUCAGON 1 MG VIAL IM PRN (08:00)
[2022-05-01] MEDS ORDERED: DEXTROSE 10% 250 ML BAG IV PRN (09:22)
[2022-05-01 10:06] LABS: Basophils # 0.1 10*3/uL (0.0-0.2); Basophils % 0.9 % (0.0-0.8); Eosinophils # 0.2 10*3/uL (0.0-0.87); Eosinophils % 3.1 % (0.00-10.9); Hematocrit 39.5 VOL% (42.0-52.0); Hemoglobin 12.8 GM/DL (14.0-18.0); Immature Granulocytes % 0.3 %; Immature Granulocytes Absolute 0.02 #; Lymphocytes # 1.3 10*3/uL (1.4-4.0); Mean Corpuscular HGB Conc 32.4 GM/DL (32-36); Mean Corpuscular Volume 97.1 FL (87-102); Monocytes # 0.5 10*3/uL (0.11-0.8); Monocytes % 9.2 % (1.7-12.7); Neutrophils % 64.5 % (38.7-73.9); Platelet Count 138 T/CUMM (130-400); Red Blood Count 4.07 MC/CUMM (3.8-5.5); Red Cell Distribution Width 11.8 % (9.3-17.3); White Blood Count 5.9 T/CUMM (4-12)
[2022-05-01 10:08] LABS: Arterial Base Excess iSTAT 0 MMOL/L (-2.5-2.5); Arterial Bicarbonate iSTAT 26.1 MMOL/L (20-26); Arterial O2 Saturation iSTAT 95 % (95-100); Arterial PCO2 iSTAT 46 MM HG (35-48); Arterial PO2 iSTAT 82 MM HG (80-95); Arterial Total CO2 iSTAT 27 MMO/L (23-27)
[2022-05-01 10:15] LABS: Albumin 3.5 G/DL (3.4-5.0); Bilirubin,Total 0.5 MG/DL (0.20-1.00); Calcium 9.9 MG/DL (8.5-10.1); Osmolality,Calculated 284.4 MOS/KG (273-304); Potassium 4.2 MMOL/L (3.5-5.1); Total Protein 7.6 G/DL (6.4-8.2)
[2022-05-01] MEDS ORDERED: CLORAZEPATE 3.75 MG TABLET PO PRN (10:20)
[2022-05-01] MEDS ORDERED: NITROGLYCERIN SL 0.4 MG TABLET SL PRN (10:26)
[2022-05-01] MEDS ORDERED: MORPHINE 2 MG/1 ML SYRINGE IV PRN (10:26)
[2022-05-01] MEDS: CHLORHEXIDINE 0.12% ORAL RINSE 60 ML BOTTLE SWISH/SPIT SCH ×2 (12:03→21:15)
[2022-05-01] MEDS: INSULIN REGULAR 100 UNIT/ML SUBCUT SCH ×3 (12:51→21:34)
[2022-05-01] MEDS: hydrALAZINE 25 MG TABLET PO SCH ×2 (15:59→21:15)
[2022-05-01] MEDS: CHLORHEXIDINE 4% SOLN 118 ML BOTTLE TOP SCH ×2 (18:37→21:34)
[2022-05-01] MEDS ORDERED: ATORVASTATIN 80 MG TABLET PO SCH (21:00)
[2022-05-02] MEDS ORDERED: DIAZEPAM 5 MG TABLET PO ONE (03:30)
[2022-05-02] MEDS ORDERED: FAMOTIDINE 20 MG TABLET PO ONE (03:30)
[2022-05-02] MEDS ORDERED: PAPAVERINE 60 MG/2 ML VIAL ONE (04:14)
[2022-05-02] MEDS ORDERED: VANCOMYCIN 1,000 MG VIAL ONE (04:14)
[2022-05-02] MEDS ORDERED: VANCOMYCIN 500 MG VIAL ONE (04:14)
[2022-05-02] MEDS: CHLORHEXIDINE 4% SOLN 118 ML BOTTLE TOP SCH (04:45)
[2022-05-02] MEDS ORDERED: CEFUROXIME INJ 1,500 MG in SODIUM CHLORIDE 0.9% 100 ML IV ONE (05:00)
[2022-05-02] MEDS ORDERED: LACTATED RINGERS 1,000 ML IV ONE (05:52)
[2022-05-02] MEDS ORDERED: PHENYLEPHRINE DRIP 20 MG/250 ML PREMIX IV ONE (05:52)
[2022-05-02] MEDS ORDERED: MINERAL OIL/PETROLATUM OPH OINT 3.5 GM TUBE ONE (05:52)
[2022-05-02] MEDS ORDERED: VECURONIUM 10 MG VIAL IV ONE (05:52)
[2022-05-02] MEDS ORDERED: SEVOFLURANE 1 UNIT/15 MINUTE INH ONE (05:52)
[2022-05-02] MEDS ORDERED: NITROGLYCERIN DRIP 50 MG/250 ML BOTTLE IV ONE (05:52)
[2022-05-02] MEDS ORDERED: SODIUM CHLORIDE 0.9% 250 ML IV ONE (05:52)
[2022-05-02] MEDS ORDERED: ETOMIDATE 40 MG/20 ML VIAL IV ONE (05:52)
[2022-05-02] MEDS ORDERED: SODIUM CHLORIDE 0.9% 1,000 ML IV ONE (05:52)
[2022-05-02] MEDS ORDERED: CALCIUM CHLORIDE 1,000 MG/10 ML VIAL IV ONE (05:52)
[2022-05-02] MEDS ORDERED: LIDOCAINE 2% 5 ML VIAL ONE ×2 (05:52→10:30)
[2022-05-02] MEDS ORDERED: AMINOCAPROIC ACID 5,000 MG/20 ML VIAL ONE (05:52)
[2022-05-02] MEDS ORDERED: MIDAZOLAM 10 MG/2 ML VIAL ONE ×3 (05:52→05:53)
[2022-05-02] MEDS ORDERED: ePHEDrine 50 MG/ML VIAL ONE (05:52)
[2022-05-02] MEDS ORDERED: HEPARIN/NACL 0.9% 2 UNITS/ML 1,000 UNIT/500 ML BAG IV ONE (05:52)
[2022-05-02] MEDS ORDERED: SUFentanil 250 MCG/5 ML AMP ONE ×2 (05:53→07:41)
[2022-05-02 07:39] LABS: ABG HCO3 26.2 MMOL/L (20-26); ABG PCO2 36.5 MM HG (35-48); ABG PH 7.455 (7.35-7.45); ABG TCO2 22.6 MMOL/L (23-27); Glucose Heart Surgery 183 MG/DL (74-106); Ionized Calcium Arterial 1.26 MMOL/L (1.21-1.46); PCO2 Patient Temp Arterial 36.5 MMHG; PH Patient Temp Arterial 7.455; Patient Temperature 37 CELCIUS; Potassium Heart/CVR 3.8 MMOL/L (3.5-5.1); Sodium Heart/CVR 139 MMOL/L (135-145)
[2022-05-02] MEDS ORDERED: FUROSEMIDE 20 MG/2 ML VIAL ONE ×3 (07:43→10:39)
[2022-05-02] MEDS ORDERED: SODIUM BICARBONATE 50 MEQ/50 ML VIAL IV ONE ×2 (08:09→10:33)
[2022-05-02] MEDS ORDERED: NITROPRUSSIDE 50 MG/2 ML VIAL ONE (08:09)
[2022-05-02] MEDS ORDERED: PHENYLEPHRINE DRIP 40 MG/250 ML PREMIX IV ONE (08:10)
[2022-05-02] MEDS ORDERED: CALCIUM CHLORIDE 1,000 MG/10 ML SYRINGE IV ONE (08:10)
[2022-05-02] MEDS ORDERED: POTASSIUM CHLORIDE RIDER 20 MEQ/100 ML PREMIX IV ONE (08:10)
[2022-05-02] MEDS ORDERED: ALBUMIN 5% 25.0 GM/500 ML VIAL IV ONE (08:12)
[2022-05-02] MEDS ORDERED: diphenhydrAMINE 50 MG/1 ML VIAL ONE (08:18)
[2022-05-02] MEDS ORDERED: FAMOTIDINE 20 MG/2 ML VIAL IV ONE (09:02)
[2022-05-02 09:10] LABS: PCO2 Patient Temp Venous 38.5 MM HG; PH Patient Temp Venous 7.436; PO2 Patient Temp Venous 44.7 MM HG; Potassium Heart/CVR 3.9 MMOL/L (3.5-5.1); VBG Base Excess 1.8 MEQ/L (0-4); VBG HCO3 25.9 MEQ/L (24-28); VBG Oxygen Saturation 85.3 %; VBG PCO2 42.4 MMHG (41-51); VBG PH 7.406; VBG PO2 51.2 MMHG (17-40); VBG Total CO2 24.9 MMOL/L
[2022-05-02 09:16] LABS: Bilirubin,Urine Negative (Negative); Blood, Urine Negative (Negative); Glucose,Urine (UA) Negative (Negative); Ketones,Urine Negative (Negative); Nitrite,Urine Negative (Negative); Protein,Urine 30 mg/dL (Negative); Urine Appearance Clear (Clear); Urine Color Straw (Yellow); Urine Specific Gravity 1.015 (1.001-1.035); Urine Urobilinogen 0.2 eU/dL (<2.0); Urine pH 6.5 (4.5-8.0)
[2022-05-02 09:18] LABS: Bacteria,Urine Occasional /HPF (Few); RBC,Urine 1 /HPF (0-4); Squamous Epithelial Cell,Urine Occasional /HPF (0-10)
[2022-05-02 09:39] LABS: Hematocrit Heart Surgery 26.8 PERCENT (42-52); Hemoglobin Heart Surgery 8.6 G/DL (14.0-18.0); PCO2 Patient Temp Venous 39.6 MM HG; PH Patient Temp Venous 7.416; PO2 Patient Temp Venous 35.4 MM HG; VBG Base Excess 1.1 MEQ/L (0-4); VBG Oxygen Saturation 72.1 %; VBG PCO2 43.7 MMHG (41-51); VBG PH 7.387; VBG PO2 40.6 MMHG (17-40); VBG Total CO2 24.5 MMOL/L
[2022-05-02] MEDS ORDERED: THROMBIN TOPICAL (RECOMBINANT) 5,000 UNIT VIAL TOP ONE (10:07)
[2022-05-02] MEDS ORDERED: LABETALOL 20 MG/4 ML SYRINGE IV ONE (10:08)
[2022-05-02 10:16] LABS: ABG Base Excess 1.2 MMOL/L (-2.5-2.5); ABG HCO3 25.5 MMOL/L (20-26); ABG PCO2 37.9 MM HG (35-48); ABG PH 7.433 (7.35-7.45); ABG TCO2 23.3 MMOL/L (23-27); Glucose Heart Surgery 179 MG/DL (74-106); Hematocrit Heart Surgery 27.7 PERCENT (42-52); Hemoglobin Heart Surgery 8.9 G/DL (14.0-18.0); Ionized Calcium Arterial 1.21 MMOL/L (1.21-1.46); PCO2 Patient Temp Arterial 37.9 MMHG; PH Patient Temp Arterial 7.433; Patient Temperature 37 CELCIUS; Potassium Heart/CVR 3.6 MMOL/L (3.5-5.1); Sodium Heart/CVR 137 MMOL/L (135-145)
[2022-05-02] MEDS: CHLORHEXIDINE 0.12% ORAL RINSE 60 ML BOTTLE SWISH/SPIT SCH ×2 (10:23→20:26)
[2022-05-02] MEDS: INSULIN REGULAR 100 UNIT/ML SUBCUT SCH (10:23)
[2022-05-02] MEDS: SODIUM CHLORIDE 0.9% 1,000 ML IV SCH (10:23)
[2022-05-02] MEDS: hydrALAZINE 25 MG TABLET PO SCH (10:23)
[2022-05-02] MEDS ORDERED: MORPHINE 10 MG/1 ML VIAL IV PRN (10:30)
[2022-05-02] MEDS ORDERED: ACETAMINOPHEN 650 MG SUPP RECTAL PRN (10:30)
[2022-05-02] MEDS ORDERED: SODIUM CHLORIDE 0.45% 1,000 ML IV SCH ×2 (10:30)
[2022-05-02] MEDS ORDERED: MAGNESIUM SULF RIDER 2 GM/50 ML PREMIX IV PRN (10:30)
[2022-05-02] MEDS ORDERED: MIDAZOLAM 10 MG/2 ML VIAL IV PRN (10:30)
[2022-05-02] MEDS ORDERED: DEXTROSE 10% 250 ML BAG IV PRN ×2 (10:30)
[2022-05-02] MEDS ORDERED: CHLORHEXIDINE 4% SOLN 118 ML BOTTLE TOP PRN (10:30)
[2022-05-02] MEDS ORDERED: LACTATED RINGERS 250 ML IV PRN (10:30)
[2022-05-02] MEDS ORDERED: INSULIN REGULAR 100 UNIT/ML IV PRN (10:30)
[2022-05-02] MEDS ORDERED: VECURONIUM 10 MG VIAL IV PRN ×2 (10:30)
[2022-05-02] MEDS ORDERED: MAGNESIUM SULF RIDER 4 GM/100 ML PREMIX IV PRN (10:30)
[2022-05-02] MEDS ORDERED: ONDANSETRON 4 MG/2 ML VIAL IV PRN (10:30)
[2022-05-02] MEDS ORDERED: INSULIN REGULAR 100 UNIT/ML IV ONE (10:30)
[2022-05-02] MEDS ORDERED: ALBUMIN 25% 25 GM/100 ML VIAL IV ONE (10:30)
[2022-05-02] MEDS ORDERED: methylPREDNISolone SOD SUC 1,000 MG/8 ML VIAL ONE (10:30)
[2022-05-02] MEDS ORDERED: CALCIUM CHLORIDE 1,000 MG/10 ML SYRINGE IV PRN (10:30)
[2022-05-02] MEDS ORDERED: MAGNESIUM SULFATE 5 GM/10 ML VIAL IV ONE (10:30)
[2022-05-02] MEDS ORDERED: PHENYLEPHRINE DRIP 40 MG/250 ML PREMIX IV PRN (10:30)
[2022-05-02] MEDS ORDERED: ALBUMIN 5% 12.5 GM/250 ML VIAL IV PRN (10:30)
[2022-05-02] MEDS ORDERED: MIDAZOLAM 2 MG/2 ML VIAL IV PRN (10:30)
[2022-05-02] MEDS ORDERED: PROTAMINE SULFATE 250 MG/25 ML VIAL IV ONE (10:31)
[2022-05-02] MEDS ORDERED: DEXTROSE 5% KCL 20 MEQ 20 MEQ/1,000 ML BAG IV ONE (10:31)
[2022-05-02] MEDS ORDERED: HEPARIN 10,000 UNIT/10 ML VIAL ONE (10:32)
[2022-05-02] MEDS ORDERED: PROTAMINE SULFATE 50 MG/5 ML VIAL IV ONE (10:32)
[2022-05-02] MEDS ORDERED: MANNITOL 12.5 GM/50 ML VIAL IV ONE (10:32)
[2022-05-02] MEDS ORDERED: POTASSIUM CHLORIDE 20 MEQ/10 ML VIAL ONE (10:33)
[2022-05-02] MEDS: NITROPRUSSIDE 100 MG in DEXTROSE 5% 250 ML IV PRN (11:20)
[2022-05-02] MEDS ORDERED: hydrALAZINE 20 MG/1 ML VIAL IV PRN (11:49)
[2022-05-02] MEDS ORDERED: NITROGLYCERIN DRIP 50 MG/250 ML BOTTLE IV PRN (11:51)
[2022-05-02] MEDS: LACTATED RINGERS 1,000 ML IV PRN ×2 (12:00→13:18)
[2022-05-02 12:27] LABS: ABG Base Excess 0.8 MMOL/L (-2.5-2.5); ABG HCO3 25.1 MMOL/L (20-26); ABG PCO2 38.7 MM HG (35-48); ABG PH 7.421 (7.35-7.45); ABG TCO2 22.6 MMOL/L (23-27); Glucose Heart Surgery 228 MG/DL (74-106); Hemoglobin Heart Surgery 10.7 G/DL (14.0-18.0); Potassium Heart/CVR 3.8 MMOL/L (3.5-5.1)
[2022-05-02 12:28] LABS: Basophils % 0.2 % (0.0-0.8); Eosinophils % 0.3 % (0.00-10.9); Hematocrit 32.1 VOL% (42.0-52.0); Hemoglobin 10.5 GM/DL (14.0-18.0); Immature Granulocytes % 0.9 %; Immature Granulocytes Absolute 0.09 #; Lymphocytes # 0.8 10*3/uL (1.4-4.0); Lymphocytes % 7.8 % (21.2-54.2); Mean Corpuscular HGB Conc 32.7 GM/DL (32-36); Mean Corpuscular Volume 96.7 FL (87-102); Mean Platelet Volume 10.4 FL (9.6-12.0); Monocytes # 0.7 10*3/uL (0.11-0.8); Monocytes % 7.2 % (1.7-12.7); Neutrophils % 83.6 % (38.7-73.9); Platelet Count 136 T/CUMM (130-400); Red Blood Count 3.32 MC/CUMM (3.8-5.5); Red Cell Distribution Width 11.8 % (9.3-17.3); White Blood Count 9.9 T/CUMM (4-12)
[2022-05-02 12:38] LABS: INR 1.1; Partial Thromboplastin Time 36.7 SECS (23.7-32.9)
[2022-05-02 12:50] LABS: Albumin 3.2 G/DL (3.4-5.0); Bilirubin,Total 0.9 MG/DL (0.20-1.00); Calcium 9.1 MG/DL (8.5-10.1); Osmolality,Calculated 283.7 MOS/KG (273-304); Potassium 3.8 MMOL/L (3.5-5.1); Total Protein 6.2 G/DL (6.4-8.2)
[2022-05-02 12:52] LABS: CKMB % 4.53 %
[2022-05-02 12:54] LABS: High Sensitive Troponin I* 3736.7 ng/L (0-78)
[2022-05-02] MEDS: POTASSIUM CHLORIDE RIDER 20 MEQ/100 ML PREMIX IV PRN ×2 (13:14→14:33)
[2022-05-02 13:36] LABS: ABG Base Excess -0.6 MMOL/L (-2.5-2.5); ABG HCO3 23.9 MMOL/L (20-26); ABG Oxygen Saturation 98.1 % (95-100); ABG PCO2 38.6 MM HG (35-48); ABG PH 7.401 (7.35-7.45); ABG TCO2 21.7 MMOL/L (23-27)
[2022-05-02] MEDS: POTASSIUM CHLORIDE RIDER 10 MEQ/100 ML PREMIX IV PRN ×2 (13:39→15:08)
[2022-05-02 14:24] LABS: ABG Base Excess -1.3 MMOL/L (-2.5-2.5); ABG HCO3 23.3 MMOL/L (20-26); ABG Oxygen Saturation 96.7 % (95-100); ABG PCO2 40.6 MM HG (35-48); ABG PH 7.376 (7.35-7.45); ABG PO2 89.3 MM HG (80-95); ABG TCO2 21.6 MMOL/L (23-27); Glucose Heart Surgery 303 MG/DL (74-106); Hematocrit Heart Surgery 32.3 PERCENT (42-52); Hemoglobin Heart Surgery 10.5 G/DL (14.0-18.0); Potassium Heart/CVR 3.9 MMOL/L (3.5-5.1)
[2022-05-02] MEDS: INSULIN REGULAR DRIP 100 ML IV SCH ×2 (14:41→23:22)
[2022-05-02] MEDS ORDERED: DEXMEDETOMIDINE 200 MCG in SODIUM CHLORIDE 0.9% 48 ML IV PRN (14:53)
[2022-05-02 17:05] LABS: ABG Base Excess -3.5 MMOL/L (-2.5-2.5); ABG HCO3 21.5 MMOL/L (20-26); ABG Oxygen Saturation 96.9 % (95-100); ABG PCO2 42.6 MM HG (35-48); ABG PH 7.328 (7.35-7.45); ABG PO2 96.5 MM HG (80-95); ABG TCO2 20.4 MMOL/L (23-27); Glucose Heart Surgery 288 MG/DL (74-106); Hematocrit Heart Surgery 32.1 PERCENT (42-52); Hemoglobin Heart Surgery 10.4 G/DL (14.0-18.0); Potassium Heart/CVR 4.2 MMOL/L (3.5-5.1)
[2022-05-02] MEDS: hydrALAZINE 20 MG/1 ML VIAL IV SCH ×2 (17:31→23:17)
[2022-05-02] MEDS ORDERED: DEXMEDETOMIDINE 400 MCG in SODIUM CHLORIDE 0.9% 96 ML IV PRN (18:01)
[2022-05-02 18:58] LABS: ABG Base Excess -1.5 MMOL/L (-2.5-2.5); ABG HCO3 23.1 MMOL/L (20-26); ABG Oxygen Saturation 96.9 % (95-100); ABG PCO2 42.7 MM HG (35-48); ABG PH 7.358 (7.35-7.45); ABG PO2 92.1 MM HG (80-95); ABG TCO2 21.8 MMOL/L (23-27); Glucose Heart Surgery 256 MG/DL (74-106); Hematocrit Heart Surgery 32.8 PERCENT (42-52); Hemoglobin Heart Surgery 10.6 G/DL (14.0-18.0); Potassium Heart/CVR 4.5 MMOL/L (3.5-5.1)
[2022-05-02 19:19] LABS: CKMB % 5.14 %; High Sensitive Troponin I* 3552.2 ng/L (0-78)
[2022-05-02] MEDS: CEFUROXIME INJ 1,500 MG in SODIUM CHLORIDE 0.9% 100 ML IV SCH (20:25)
[2022-05-02 21:22] LABS: ABG Base Excess -1.9 MMOL/L (-2.5-2.5); ABG HCO3 22.8 MMOL/L (20-26); ABG Oxygen Saturation 97.1 % (95-100); ABG PCO2 39.3 MM HG (35-48); ABG PH 7.376 (7.35-7.45); ABG TCO2 20.8 MMOL/L (23-27); Glucose Heart Surgery 214 MG/DL (74-106); Hematocrit Heart Surgery 34.1 PERCENT (42-52); Hemoglobin Heart Surgery 11.1 G/DL (14.0-18.0); Potassium Heart/CVR 4.2 MMOL/L (3.5-5.1)
[2022-05-02 22:15] LABS: ABG Base Excess -2.2 MMOL/L (-2.5-2.5); ABG HCO3 22.6 MMOL/L (20-26); ABG Oxygen Saturation 97.3 % (95-100); ABG PCO2 40.7 MM HG (35-48); ABG PH 7.362 (7.35-7.45); ABG TCO2 20.8 MMOL/L (23-27); Glucose Heart Surgery 203 MG/DL (74-106); Hematocrit Heart Surgery 33.5 PERCENT (42-52); Hemoglobin Heart Surgery 10.9 G/DL (14.0-18.0)
[2022-05-02] MEDS ORDERED: FUROSEMIDE 40 MG/4 ML VIAL IV ONE (23:12)
[2022-05-02 23:21] LABS: ABG Base Excess -1.9 MMOL/L (-2.5-2.5); ABG HCO3 22.8 MMOL/L (20-26); ABG Oxygen Saturation 97.9 % (95-100); ABG PCO2 40.9 MM HG (35-48); ABG PH 7.364 (7.35-7.45); ABG TCO2 21.1 MMOL/L (23-27); Glucose Heart Surgery 193 MG/DL (74-106); Hematocrit Heart Surgery 33.4 PERCENT (42-52); Hemoglobin Heart Surgery 10.8 G/DL (14.0-18.0)
[2022-05-03] MEDS: MORPHINE 2 MG/1 ML SYRINGE IV PRN ×3 (03:28→09:15)
[2022-05-03 03:29] LABS: ABG Base Excess -0.5 MMOL/L (-2.5-2.5); ABG Oxygen Saturation 97.9 % (95-100); ABG PCO2 40.3 MM HG (35-48); ABG PH 7.389 (7.35-7.45); ABG TCO2 21.9 MMOL/L (23-27); Basophils % 0.1 % (0.0-0.8); Glucose Heart Surgery 177 MG/DL (74-106); Hematocrit 33.4 VOL% (42.0-52.0); Hematocrit Heart Surgery 33.3 PERCENT (42-52); Hemoglobin 10.8 GM/DL (14.0-18.0); Hemoglobin Heart Surgery 10.8 G/DL (14.0-18.0); Immature Granulocytes % 0.5 %; Immature Granulocytes Absolute 0.11 #; Lymphocytes # 0.6 10*3/uL (1.4-4.0); Lymphocytes % 2.8 % (21.2-54.2); Mean Corpuscular HGB Conc 32.3 GM/DL (32-36); Mean Corpuscular Volume 96.8 FL (87-102); Mean Platelet Volume 10.3 FL (9.6-12.0); Monocytes # 1.3 10*3/uL (0.11-0.8); Monocytes % 6.6 % (1.7-12.7); Platelet Count 161 T/CUMM (130-400); Potassium Heart/CVR 4.3 MMOL/L (3.5-5.1); Red Blood Count 3.45 MC/CUMM (3.8-5.5); Red Cell Distribution Width 11.9 % (9.3-17.3); White Blood Count 20.3 T/CUMM (4-12)
[2022-05-03 03:50] LABS: CKMB % 6.83 %
[2022-05-03 03:54] LABS: High Sensitive Troponin I* 6768.7 ng/L (0-78)
[2022-05-03 04:00] LABS: Lymphocytes 3 % (20-55); Platelet Estimate Adequate; Total Cells Counted 100
[2022-05-03 04:11] LABS: Albumin 3.3 G/DL (3.4-5.0); Bilirubin,Direct 0.21 MG/DL (0.0-0.20); Bilirubin,Total 0.7 MG/DL (0.20-1.00); Osmolality,Calculated 288.3 MOS/KG (273-304); Potassium 4.4 MMOL/L (3.5-5.1); Total Protein 6.6 G/DL (6.4-8.2)
[2022-05-03] MEDS: NITROPRUSSIDE 100 MG in DEXTROSE 5% 250 ML IV PRN (05:21)
[2022-05-03] MEDS ORDERED: HYDROmorphone 1 MG/1 ML SYRINGE IV PRN ×2 (06:08→20:02)
[2022-05-03] MEDS: oxyCODONE/ACETAMINOPHEN 5-325 MG TABLET PO PRN ×3 (06:12→19:44)
[2022-05-03] MEDS: hydrALAZINE 20 MG/1 ML VIAL IV SCH (06:14)
[2022-05-03] MEDS: CEFUROXIME INJ 1,500 MG in SODIUM CHLORIDE 0.9% 100 ML IV SCH (07:00)
[2022-05-03] MEDS: ASPIRIN EC 81 MG TABLET PO SCH (09:10)
[2022-05-03] MEDS: hydrALAZINE 25 MG TABLET PO SCH ×3 (09:10→20:07)
[2022-05-03] MEDS: ISOSORBIDE MONONITRATE 30 MG TABLET PO SCH (09:10)
[2022-05-03] MEDS: ASCORBIC ACID 500 MG TABLET PO SCH (09:10)
[2022-05-03] MEDS: METOPROLOL TARTRATE 25 MG TABLET PO SCH ×2 (09:10→20:06)
[2022-05-03] MEDS ORDERED: ONDANSETRON 4 MG/2 ML VIAL IV PRN (09:25)
[2022-05-03] MEDS ORDERED: MAGNESIUM SULF RIDER 4 GM/100 ML PREMIX IV PRN (09:25)
[2022-05-03] MEDS ORDERED: ZALEPLON 5 MG CAPSULE PO PRN (09:25)
[2022-05-03] MEDS ORDERED: ALUMINUM/MAGNES/SIMETH MAX STR 30 ML UDCUP PO PRN (09:25)
[2022-05-03] MEDS ORDERED: MAGNESIUM HYDROXIDE SUSP 30 ML UDCUP PO PRN (09:25)
[2022-05-03] MEDS ORDERED: DEXTROSE 50% 25 GM/50 ML VIAL IV PRN (09:25)
[2022-05-03] MEDS ORDERED: MAGNESIUM SULF RIDER 2 GM/50 ML PREMIX IV PRN (09:25)
[2022-05-03] MEDS ORDERED: DEXTROSE 10% 250 ML BAG IV PRN (09:25)
[2022-05-03] MEDS ORDERED: GLUCAGON 1 MG VIAL IM PRN ×2 (09:25)
[2022-05-03] MEDS ORDERED: ACETAMINOPHEN 325 MG TABLET PO PRN (09:25)
[2022-05-03] MEDS ORDERED: SODIUM CHLOR 0.45% KCL 20 MEQ 20 MEQ/1,000 ML BAG IV SCH (09:30)
[2022-05-03] MEDS: PANTOPRAZOLE 40 MG TABLET PO SCH (09:40)
[2022-05-03] MEDS: CHLORHEXIDINE 0.12% ORAL RINSE 60 ML BOTTLE SWISH/SPIT SCH ×2 (09:45→20:08)
[2022-05-03] MEDS: hydrALAZINE 20 MG/1 ML VIAL IV PRN ×2 (12:05→17:22)
[2022-05-03] MEDS: INSULIN LISPRO 100 UNIT/ML SUBCUT SCH ×4 (12:35→23:33)
[2022-05-03 13:12] LABS: CKMB % 4.4 %; High Sensitive Troponin I* 6669.7 ng/L (0-78)
[2022-05-03] MEDS ORDERED: INSULIN GLARGINE 100 UNIT/ML SUBCUT SCH (15:42)
[2022-05-03] MEDS ORDERED: INSULIN GLARGINE 100 UNIT/ML SUBCUT ONE (16:00)
[2022-05-03] MEDS ORDERED: NITROPRUSSIDE 100 MG in DEXTROSE 5% 250 ML IV PRN (17:28)
[2022-05-03] MEDS ORDERED: NITROPRUSSIDE 50 MG/2 ML VIAL ONE (17:31)
[2022-05-03] MEDS ORDERED: CEFUROXIME INJ 1,500 MG in SODIUM CHLORIDE 0.9% 100 ML IV SCH (20:00)
[2022-05-04] MEDS: oxyCODONE/ACETAMINOPHEN 5-325 MG TABLET PO PRN ×3 (02:55→23:56)
[2022-05-04] MEDS: INSULIN LISPRO 100 UNIT/ML SUBCUT SCH ×6 (04:13→23:56)
[2022-05-04 04:30] LABS: Hematocrit 33.4 VOL% (42.0-52.0); Hemoglobin 10.4 GM/DL (14.0-18.0); Immature Granulocytes % 0.9 %; Lymphocytes # 0.8 10*3/uL (1.4-4.0); Lymphocytes % 3.6 % (21.2-54.2); Mean Corpuscular HGB Conc 31.1 GM/DL (32-36); Mean Corpuscular Volume 101.5 FL (87-102); Mean Platelet Volume 10.6 FL (9.6-12.0); Monocytes # 2.4 10*3/uL (0.11-0.8); Neutrophils % 84.5 % (38.7-73.9); Platelet Count 139 T/CUMM (130-400); Red Blood Count 3.29 MC/CUMM (3.8-5.5); Red Cell Distribution Width 12.2 % (9.3-17.3)
[2022-05-04 04:54] LABS: Albumin 3.1 G/DL (3.4-5.0); Bilirubin,Direct 0.22 MG/DL (0.0-0.20); Bilirubin,Indirect 0.4 MG/DL (0.0-1.0); Bilirubin,Total 0.6 MG/DL (0.20-1.00); CKMB % 1.74 %; Calcium 8.6 MG/DL (8.5-10.1); High Sensitive Troponin I* 4940.2 ng/L (0-78); Osmolality,Calculated 292.4 MOS/KG (273-304); Potassium 4.6 MMOL/L (3.5-5.1); Total Protein 6.6 G/DL (6.4-8.2)
[2022-05-04 04:58] LABS: Lymphocytes 5 % (20-55); Platelet Estimate Normal; Total Cells Counted 100
[2022-05-04] MEDS ORDERED: FUROSEMIDE 40 MG/4 ML VIAL IV ONE (06:00)
[2022-05-04] MEDS: hydrALAZINE 25 MG TABLET PO SCH ×3 (07:50→20:43)
[2022-05-04] MEDS: FERROUS SULFATE 325 MG TABLET PO SCH (07:50)
[2022-05-04] MEDS: ISOSORBIDE MONONITRATE 30 MG TABLET PO SCH (07:50)
[2022-05-04] MEDS: PANTOPRAZOLE 40 MG TABLET PO SCH (07:50)
[2022-05-04] MEDS: DOCUSATE SODIUM 100 MG CAPSULE PO SCH (07:50)
[2022-05-04] MEDS: ASPIRIN EC 81 MG TABLET PO SCH (07:50)
[2022-05-04] MEDS: ASCORBIC ACID 500 MG TABLET PO SCH (07:50)
[2022-05-04] MEDS: METOPROLOL TARTRATE 25 MG TABLET PO SCH ×2 (07:50→20:43)
[2022-05-04] MEDS: CHLORHEXIDINE 0.12% ORAL RINSE 60 ML BOTTLE SWISH/SPIT SCH ×2 (08:50→20:48)
[2022-05-04] MEDS ORDERED: INSULIN GLARGINE 100 UNIT/ML SUBCUT SCH (09:00)
[2022-05-04] MEDS: INSULIN GLARGINE 100 UNIT/ML SUBCUT SCH (20:42)
[2022-05-05] MEDS: INSULIN LISPRO 100 UNIT/ML SUBCUT SCH ×5 (04:27→20:32)
[2022-05-05 04:34] LABS: Basophils % 0.1 % (0.0-0.8); Eosinophils % 0.1 % (0.00-10.9); Hematocrit 30.6 VOL% (42.0-52.0); Hemoglobin 9.6 GM/DL (14.0-18.0); Immature Granulocytes % 0.9 %; Immature Granulocytes Absolute 0.14 #; Lymphocytes # 1.2 10*3/uL (1.4-4.0); Lymphocytes % 8.1 % (21.2-54.2); Mean Corpuscular HGB Conc 31.4 GM/DL (32-36); Mean Corpuscular Volume 100.7 FL (87-102); Mean Platelet Volume 10.7 FL (9.6-12.0); Monocytes # 1.8 10*3/uL (0.11-0.8); Monocytes % 11.9 % (1.7-12.7); Neutrophils % 78.9 % (38.7-73.9); Platelet Count 123 T/CUMM (130-400); Red Blood Count 3.04 MC/CUMM (3.8-5.5); Red Cell Distribution Width 11.9 % (9.3-17.3); White Blood Count 14.9 T/CUMM (4-12)
[2022-05-05 04:57] LABS: Alanine Aminotransferase 21 U/L (16-61); Albumin 2.7 G/DL (3.4-5.0); Alkaline Phosphatase 55 U/L (45-117); Aspartate Amino Transferase 24 U/L (0-37); Bilirubin,Indirect 0.5 MG/DL (0.0-1.0); Blood Urea Nitrogen 45 MG/DL (7-18); Calcium 8.5 MG/DL (8.5-10.1); Carbon Dioxide 27 MMOL/L (21-32); Chloride 110 MMOL/L (98-107); Glucose 148 MG/DL (74-106); Osmolality,Calculated 295.3 MOS/KG (273-304); Potassium 4.2 MMOL/L (3.5-5.1); Sodium 141 MMOL/L (136-145); Total Protein 5.9 G/DL (6.4-8.2)
[2022-05-05] MEDS: ASPIRIN EC 81 MG TABLET PO SCH (08:14)
[2022-05-05] MEDS: ISOSORBIDE MONONITRATE 30 MG TABLET PO SCH (08:14)
[2022-05-05] MEDS: hydrALAZINE 25 MG TABLET PO SCH ×3 (08:14→20:32)
[2022-05-05] MEDS: ASCORBIC ACID 500 MG TABLET PO SCH (08:14)
[2022-05-05] MEDS: PANTOPRAZOLE 40 MG TABLET PO SCH (08:14)
[2022-05-05] MEDS: DOCUSATE SODIUM 100 MG CAPSULE PO SCH (08:14)
[2022-05-05] MEDS: INSULIN GLARGINE 100 UNIT/ML SUBCUT SCH ×2 (08:15→20:32)
[2022-05-05] MEDS: METOPROLOL TARTRATE 25 MG TABLET PO SCH ×2 (08:15→20:32)
[2022-05-05] MEDS: FERROUS SULFATE 325 MG TABLET PO SCH (08:56)
[2022-05-05] MEDS: CHLORHEXIDINE 0.12% ORAL RINSE 60 ML BOTTLE SWISH/SPIT SCH ×2 (08:57→20:34)
[2022-05-05] MEDS: POLYETHYLENE GLYCOL POWDER 17 GM PACK PO SCH (08:57)
[2022-05-05] MEDS ORDERED: POLYVINYL ALCOHOL 1.4% OPH SOLN 15 ML BOTTLE BOTH EYES PRN (15:31)
[2022-05-05] MEDS: oxyCODONE/ACETAMINOPHEN 5-325 MG TABLET PO PRN (20:39)
[2022-05-06] MEDS: INSULIN LISPRO 100 UNIT/ML SUBCUT SCH ×6 (00:06→21:39)
[2022-05-06 04:04] LABS: Basophils % 0.1 % (0.0-0.8); Eosinophils # 0.1 10*3/uL (0.0-0.87); Eosinophils % 0.7 % (0.00-10.9); Hematocrit 30.6 VOL% (42.0-52.0); Hemoglobin 9.7 GM/DL (14.0-18.0); Immature Granulocytes % 0.4 %; Immature Granulocytes Absolute 0.06 #; Lymphocytes # 1.2 10*3/uL (1.4-4.0); Lymphocytes % 8.8 % (21.2-54.2); Mean Corpuscular HGB Conc 31.7 GM/DL (32-36); Mean Corpuscular Volume 99.7 FL (87-102); Mean Platelet Volume 10.3 FL (9.6-12.0); Monocytes # 1.4 10*3/uL (0.11-0.8); Monocytes % 10.1 % (1.7-12.7); Neutrophils % 79.9 % (38.7-73.9); Platelet Count 124 T/CUMM (130-400); Red Blood Count 3.07 MC/CUMM (3.8-5.5); Red Cell Distribution Width 11.8 % (9.3-17.3); White Blood Count 13.5 T/CUMM (4-12)
[2022-05-06 04:20] LABS: Calcium 8.7 MG/DL (8.5-10.1); Osmolality,Calculated 289.5 MOS/KG (273-304); Potassium 4.1 MMOL/L (3.5-5.1)
[2022-05-06] MEDS: INSULIN GLARGINE 100 UNIT/ML SUBCUT SCH ×2 (08:13→21:40)
[2022-05-06] MEDS: POLYETHYLENE GLYCOL POWDER 17 GM PACK PO SCH (08:13)
[2022-05-06] MEDS: PANTOPRAZOLE 40 MG TABLET PO SCH (08:16)
[2022-05-06] MEDS: ISOSORBIDE MONONITRATE 30 MG TABLET PO SCH (08:16)
[2022-05-06] MEDS: ASCORBIC ACID 500 MG TABLET PO SCH (08:16)
[2022-05-06] MEDS: hydrALAZINE 25 MG TABLET PO SCH ×3 (08:16→21:42)
[2022-05-06] MEDS: ASPIRIN EC 81 MG TABLET PO SCH (08:16)
[2022-05-06] MEDS: cloNIDine 0.1 MG TABLET PO SCH ×3 (08:16→21:43)
[2022-05-06] MEDS: METOPROLOL TARTRATE 25 MG TABLET PO SCH ×2 (08:16→21:34)
[2022-05-06] MEDS: DOCUSATE SODIUM 100 MG CAPSULE PO SCH (08:16)
[2022-05-06] MEDS: CHLORHEXIDINE 0.12% ORAL RINSE 60 ML BOTTLE SWISH/SPIT SCH ×2 (08:21→21:45)
[2022-05-06] MEDS: FERROUS SULFATE 325 MG TABLET PO SCH (08:22)
[2022-05-06] MEDS: CLOPIDOGREL 75 MG TABLET PO SCH (08:50)
[2022-05-06] MEDS: oxyCODONE/ACETAMINOPHEN 5-325 MG TABLET PO PRN ×2 (09:53→22:55)
[2022-05-07] MEDS: oxyCODONE/ACETAMINOPHEN 5-325 MG TABLET PO PRN ×3 (03:10→20:59)
[2022-05-07] MEDS: INSULIN LISPRO 100 UNIT/ML SUBCUT SCH ×6 (03:22→21:00)
[2022-05-07 05:07] LABS: Basophils % 0.1 % (0.0-0.8); Eosinophils # 0.3 10*3/uL (0.0-0.87); Eosinophils % 2.7 % (0.00-10.9); Hematocrit 29.6 VOL% (42.0-52.0); Hemoglobin 9.8 GM/DL (14.0-18.0); Immature Granulocytes % 0.6 %; Immature Granulocytes Absolute 0.06 #; Lymphocytes # 1.6 10*3/uL (1.4-4.0); Lymphocytes % 16.7 % (21.2-54.2); Mean Corpuscular HGB Conc 33.1 GM/DL (32-36); Mean Corpuscular Volume 95.8 FL (87-102); Mean Platelet Volume 10.5 FL (9.6-12.0); Monocytes # 1.2 10*3/uL (0.11-0.8); Monocytes % 12.3 % (1.7-12.7); Neutrophils % 67.6 % (38.7-73.9); Platelet Count 127 T/CUMM (130-400); Red Blood Count 3.09 MC/CUMM (3.8-5.5); Red Cell Distribution Width 11.7 % (9.3-17.3); White Blood Count 9.8 T/CUMM (4-12)
[2022-05-07 05:31] LABS: Alanine Aminotransferase 44 U/L (16-61); Albumin 2.6 G/DL (3.4-5.0); Alkaline Phosphatase 60 U/L (45-117); Aspartate Amino Transferase 34 U/L (0-37); Bilirubin,Indirect 0.3 MG/DL (0.0-1.0); Blood Urea Nitrogen 44 MG/DL (7-18); Calcium 8.5 MG/DL (8.5-10.1); Carbon Dioxide 25 MMOL/L (21-32); Chloride 111 MMOL/L (98-107); Glucose 120 MG/DL (74-106); Osmolality,Calculated 294.1 MOS/KG (273-304); Potassium 3.8 MMOL/L (3.5-5.1); Sodium 142 MMOL/L (136-145)
[2022-05-07] MEDS: PANTOPRAZOLE 40 MG TABLET PO SCH (09:14)
[2022-05-07] MEDS: FERROUS SULFATE 325 MG TABLET PO SCH (09:14)
[2022-05-07] MEDS: CLOPIDOGREL 75 MG TABLET PO SCH (09:14)
[2022-05-07] MEDS: ASCORBIC ACID 500 MG TABLET PO SCH (09:14)
[2022-05-07] MEDS: METOPROLOL TARTRATE 25 MG TABLET PO SCH ×2 (09:14→20:55)
[2022-05-07] MEDS: ASPIRIN EC 81 MG TABLET PO SCH (09:14)
[2022-05-07] MEDS: hydrALAZINE 25 MG TABLET PO SCH ×3 (09:14→20:59)
[2022-05-07] MEDS: cloNIDine 0.1 MG TABLET PO SCH ×2 (09:14→21:00)
[2022-05-07] MEDS: DOCUSATE SODIUM 100 MG CAPSULE PO SCH (09:14)
[2022-05-07] MEDS: POLYETHYLENE GLYCOL POWDER 17 GM PACK PO SCH (09:14)
[2022-05-07] MEDS: ISOSORBIDE MONONITRATE 30 MG TABLET PO SCH (09:14)
[2022-05-07] MEDS: INSULIN GLARGINE 100 UNIT/ML SUBCUT SCH ×3 (09:21→21:00)
[2022-05-07] MEDS: CHLORHEXIDINE 0.12% ORAL RINSE 60 ML BOTTLE SWISH/SPIT SCH ×2 (09:21→20:59)
[2022-05-07] MEDS: POTASSIUM CHLORIDE 20 MEQ TABLET PO PRN ×2 (09:21→09:22)
[2022-05-07] MEDS ORDERED: ATORVASTATIN 80 MG TABLET PO SCH (21:00)
[2022-05-08] MEDS: oxyCODONE/ACETAMINOPHEN 5-325 MG TABLET PO PRN (00:30)
[2022-05-08 04:14] LABS: Basophils % 0.1 % (0.0-0.8); Eosinophils # 0.3 10*3/uL (0.0-0.87); Eosinophils % 3.3 % (0.00-10.9); Hematocrit 31.5 VOL% (42.0-52.0); Hemoglobin 10.2 GM/DL (14.0-18.0); Immature Granulocytes % 0.4 %; Immature Granulocytes Absolute 0.04 #; Lymphocytes % 20.4 % (21.2-54.2); Mean Corpuscular HGB Conc 32.4 GM/DL (32-36); Mean Corpuscular Volume 96.9 FL (87-102); Mean Platelet Volume 10.7 FL (9.6-12.0); Monocytes # 1.3 10*3/uL (0.11-0.8); Monocytes % 13.1 % (1.7-12.7); Neutrophils % 62.7 % (38.7-73.9); Platelet Count 131 T/CUMM (130-400); Red Blood Count 3.25 MC/CUMM (3.8-5.5); Red Cell Distribution Width 11.6 % (9.3-17.3); White Blood Count 9.6 T/CUMM (4-12)
[2022-05-08 04:37] LABS: Alanine Aminotransferase 46 U/L (16-61); Albumin 2.8 G/DL (3.4-5.0); Alkaline Phosphatase 62 U/L (45-117); Aspartate Amino Transferase 26 U/L (0-37); Bilirubin,Indirect 0.4 MG/DL (0.0-1.0); Blood Urea Nitrogen 35 MG/DL (7-18); Calcium 8.8 MG/DL (8.5-10.1); Carbon Dioxide 25 MMOL/L (21-32); Chloride 112 MMOL/L (98-107); Glucose 118 MG/DL (74-106); Osmolality,Calculated 287.4 MOS/KG (273-304); Potassium 4.2 MMOL/L (3.5-5.1); Sodium 140 MMOL/L (136-145); Total Protein 6.1 G/DL (6.4-8.2)
[2022-05-08] MEDS: METOPROLOL TARTRATE 25 MG TABLET PO SCH (09:24)
[2022-05-08] MEDS: POLYETHYLENE GLYCOL POWDER 17 GM PACK PO SCH (09:24)
[2022-05-08] MEDS: cloNIDine 0.1 MG TABLET PO SCH (09:25)
[2022-05-08] MEDS: DOCUSATE SODIUM 100 MG CAPSULE PO SCH (09:26)
[2022-05-08] MEDS: PANTOPRAZOLE 40 MG TABLET PO SCH (09:26)
[2022-05-08] MEDS: ASCORBIC ACID 500 MG TABLET PO SCH (09:26)
[2022-05-08] MEDS: ASPIRIN EC 81 MG TABLET PO SCH (09:26)
[2022-05-08] MEDS: FERROUS SULFATE 325 MG TABLET PO SCH (09:26)
[2022-05-08] MEDS: hydrALAZINE 25 MG TABLET PO SCH (09:26)
[2022-05-08] MEDS: CLOPIDOGREL 75 MG TABLET PO SCH (09:27)
[2022-05-08] MEDS: ISOSORBIDE MONONITRATE 30 MG TABLET PO SCH (09:27)
[2022-05-08] MEDS: CHLORHEXIDINE 0.12% ORAL RINSE 60 ML BOTTLE SWISH/SPIT SCH (09:28)
[2022-05-08] MEDS: INSULIN LISPRO 100 UNIT/ML SUBCUT SCH ×2 (09:28→14:52)
[2022-05-08] MEDS: INSULIN GLARGINE 100 UNIT/ML SUBCUT SCH (09:33)
[2022-05-08 12:33] VITALS: BP 133/49
== END 2022-05-08 15:37 | disposition home health service (06) | DRG 236 ==
LOC: N.TELEN 05-01 09:15 → N.CVR 05-02 10:31 → N.ICU 05-03 12:41 → N.TELES 05-06 09:25